=== PATIENT | female | born 1960 | race Caucasian/White ===

== ENCOUNTER 2023-09-13 04:01 | Inpatient (IN) | payer OTHER, SELFPAY ==
[2023-09-12 20:24] VITALS: BMI 40.2
[2023-09-12 20:31] VITALS: BP 126/91
[2023-09-12 21:41] LABS: % Basophils 0.3 % (0-2); % Eosinophils 0.6 % (0-6); % Immature Granulocytes 0.3 % (0-0.5); % Lymphocytes 10.3 % (20.5-51.1); % Monocytes 10.7 % (1.7-9.3); % Neutrophils 77.8 % (42.2-75.2); Absolute Lymphocytes 0.7 10^3/uL (1.2-3.4); Absolute Monocytes 0.7 10^3/uL (0.1-0.6); Absolute Neutrophils 4.9 10^3/uL (1.4-6.5); Hematocrit 37.4 % (37.0-47.0); Hemoglobin 12.9 g/dL (12.0-16.0); Mean Corp Hgb Conc. 34.5 g/dL (33.0-37.0); Mean Corpuscular Hgb 32.8 pg (27.0-31.0); Mean Corpuscular Volume 95.2 fL (81.0-99.0); Mean Platelet Volume 10.3 fL (7.4-10.4); Nucleated Red Blood Cells % 0 %; Platelet Count 71 10^3/uL (130-400); Red Blood Cell Count 3.93 10^6/uL (4.20-5.40); White Blood Cell Count 6.3 10^3/uL (4.8-10.8)
[2023-09-12 21:46] VITALS: BP 125/91
[2023-09-12 21:57] LABS: ALT (SGPT) 12 U/L (0-35); AST (SGOT) 24 U/L (14-36); Albumin 3.8 g/dl (3.5-5.0); Alkaline Phosphatase 76 U/L (38-126); Blood Urea Nitrogen 12 mg/dl (7-17); Calcium 8.5 mg/dl (8.4-10.2); Carbon Dioxide 20 mmol/L (22-30); Chloride 101 mmol/L (98-107); Glucose 116 mg/dl (70-99); Potassium 4.1 mmol/L (3.5-5.1); Sodium 127 mmol/L (135-145); Total Bilirubin 1.2 mg/dl (0.2-1.3); Total Protein 6.9 g/dl (6.3-8.2); eGFR > 60.00
[2023-09-12 22:00] VITALS: BP 80/57
[2023-09-12 22:06] VITALS: BP 116/81
[2023-09-12 22:33] LABS: COVID-19 Antigen Negative (Negative)
[2023-09-12 22:59] LABS: Lactic Acid 1.2 mmol/L (0.7-2.0)
[2023-09-12 23:00] VITALS: BP 109/75
[2023-09-12 23:00] LABS: Urine Albumin Negative (Neg - Trace); Urine Bilirubin Negative (Negative); Urine Character Clear (Clear); Urine Color Yellow; Urine Glucose Negative (Negative); Urine Ketone Trace (Negative); Urine Leukocyte Trace (Negative); Urine Nitrite Negative (Negative); Urine Occult Blood Negative (Negative); Urine Specific Gravity 1.015 (<1.030); Urine Urobilinogen 1+ (Neg - 1+)
[2023-09-12 23:09] LABS: Urine Bacteria Few (Negative); Urine Red Blood Cell 0-2 /HPF (0-2)
--- NOTE | 2023-09-12 23:43 | ED.GENMED ---
History of Present Illness
General
Chief Complaint: Fever
Source: patient
Exam Limitations: none
Time Seen by Provider: 09/12/23 21:05
Travel History
Have you had any contact with someone who has COVID-19?: No
Do you have any symptoms of coronavirus? Fever > 100 degrees, chills, cough, shortness of breath, sore throat, loss of taste or smell, muscle aches, or headache?: Yes
Symptoms:: fever
History of Present Illness
History of Present Illness:
63-year-old female with history of brain cancer receiving treatment through [facility] presents with a fever onset today. , who is very involved in her care, states that she intermittently gets these fevers and sometimes it
is related to her low platelets. She presented with chills today increased weakness and dizziness. She also notes a crushing type headache that is atypical. She has a history of craniotomy with surgery. She is left with left-sided deficit. She
denies chest pain or vomiting. She was given Tylenol at 3 PM today.
Past History
Past History
ED Past Medical History: Cancer (astrocytoma right parietal), HTN, Other (Iron deficiency anemia, seasonal allergies) and Other (DJD of the knees)
ED Past Surgical History: Cholecystectomy, , Gynecological (D&C), Orthopedic (Right lateral foot surgery 2009, for knee surgery) and Other (Sinus surgery)
Social History
Tobacco: Non-smoker
Alcohol: None
Personal:
Living: with family
Employment: Employed
Family History
Family History: Other (Noncontributory)
Phy Exam
Physical Exam
Physical Exam:
General: Well-appearing female no acute respiratory distress
HEENT: Normocephalic healed surgical incisions noted over the scalp pupils equal round and reactive to light
Heart: Regular rate and rhythm no murmurs
Lungs: Clear to auscultation bilaterally no wheezing
Extremities: No cyanosis or edema
Skin is warm no rash
Course
Orders/Labs/Results
Orders:
Orders
09/12/23 21:32
COVID-19 Antigen Urgent
Source: Nasal Swab
Complete Blood Count/With Diff Urgent
Comprehensive Metabolic Panel Urgent
Lactic Acid Q4H
Comment: CANCEL 2nd LACTIC ACID IF 1st LACTIC ACID IS LESS THAN 2
Blood Culture Q30M
KASSANDRA Source: Blood/Venous
Specimen Description:
Blood Culture Q30M
KASSANDRA Source: Blood/Venous
Specimen Description:
Influenza A+B Rapid Molecular Urgent
KASSANDRA Source: Nasal Swab
Specimen Description:
09/12/23 22:41
Urinalysis Reflex To Culture Urgent
Date Specimen was Collected: 09/12/23
Time Specimen was Collected: 22:40
Urine Microscopic Reflex Cult Urgent
09/13/23 00:00
CT Head W/o Iv Contrast Urgent
Reason For Exam: crushing headache, fever
09/13/23 00:13
0.9% Sodium Chloride 1000 ml [Nss] 1,000 ml IV BOLUS
09/13/23 00:34
Acetaminophen [Tylenol] 650 mg PO NOW STA
Levetiracetam [Keppra] 500 mg PO NOW STA
Abnormal Lab Results
09/12/23 09/12/23
21:32 22:41
RBC 3.93 L 10^6/uL
(4.20-5.40)
MCH 32.8 H pg
(27.0-31.0)
RDW 15.0 H %
(11.5-14.5)
Plt Count 71 L 10^3/uL
(130-400)
Absolute Lymphs (auto) 0.7 L 10^3/uL
(1.2-3.4)
Absolute Monos (auto) 0.7 H 10^3/uL
(0.1-0.6)
Neutrophils % 77.8 H %
(42.2-75.2)
Lymphocytes % 10.3 L %
(20.5-51.1)
Monocytes % 10.7 H %
(1.7-9.3)
Sodium 127 L mmol/L
(135-145)
Carbon Dioxide 20 L mmol/L
(22-30)
Creatinine 0.5 L mg/dL
(0.6-1.0)
Glucose 116 H mg/dl
(70-99)
Urine Ketones Trace A
(Negative)
Leukocyte Esterase Rfl Trace A
(Negative)
Urine Bacteria (Reflex) Few A
(Negative)
09/12/23 21:32
09/12/23 21:32
Vital Signs
Initial and Last Documented VS:
Initial Vital Signs
Temp Pulse Resp BP Pulse Ox
98.9 F 83 20 126/91 98
09/12/23 20:31 09/12/23 20:31 09/12/23 20:31 09/12/23 20:31 09/12/23 20:31
Last Documented Vital Signs
Temp Pulse Resp BP Pulse Ox
98 F 74 22 116/80 98
09/13/23 00:22 09/13/23 02:00 09/13/23 02:00 09/13/23 02:00 09/12/23 20:31
MDM/Problems Addressed
Differential Diagnosis Includes:
Fever. Question viral illness versus other infectious source versus inflammatory response. Patient's is a complex medical history. Will check blood work COVID and flu test. She notes a crushing type headache which is Bickle for her. CT of the
head is pending. No meningeal signs.
*Critical Care Note
Total Time (30-74mins, 75-104mins- exclusive of procedures): Not Applicable
Update Note
Update Note:
CT shows no obvious acute finding. COVID and flu are negative. Sodium noted to be 127. Urinalysis without infection. Patient and describe profound weakness unable to stand on her own took 4 people to get her in bed. Will keep in
hospital for further evaluation.
ED Attending Note
-
Portions of this chart may have been created with voice recognition software.� Occasional wrong word or��sound alike� substitutions may have occurred due to the inherent limitations of voice recognition software.
Discharge Plan
Departure
Patient Disposition: Admit
Date of Disposition: 09/13/23
Time of Disposition: 02:32
Admit to: Med/Surg
Presentation/result/management discussed w/ accepting MD/DO: Hospitalist
Discharge Problem:
Fever
Prescriptions:
No Action
Eliquis 5 MG tablet
5 mg PO DAILY
Rx Instructions:
10 mg po bid x 7 days, followed by 5 mg po bid. Please dispense sufficient quantity for one month.
levetiracetam [Keppra] 1,000 mg Tablet
1,000 mg PO DAILY
acetaminophen 325 MG tablet
650 mg PO Q6HPRN PRN (Reason: for mild pain or fever >100.4F)
nadolol 20 mg Tablet
20 mg PO DAILY
Referrals:
Berlin English MD [Family Provider] -
Interventions
Interventions:
*Risk Screen - Suicide Last Done: 09/12/23 20:31
*General Assessment Last Done: 09/12/23 20:31
*Neglect/Abuse Screening Last Done: 09/12/23 20:31
ED- Fall Risk Assessment Last Done: 09/12/23 21:20
*ED COVID-19 Vaccine History Last Done: 09/12/23 20:31
ED- Neurological Assessment Last Done: 09/12/23 21:20
ED-Skin Assessment Last Done: 09/12/23 21:20
[2023-09-13] VITALS (13 sets, daily range): BP systolic 92–127; BP diastolic 60–83; BMI 39.4
[2023-09-13] MEDS: NSS 1000 IV (00:15)
[2023-09-13] MEDS: TYLENOL 650 MG PO ×2 (00:42→16:14)
[2023-09-13] MEDS: KEPPRA 500 MG PO ×3 (00:42→21:30)
--- NOTE | 2023-09-13 03:30 | HPS.HSE ---
Family Physician
-
Family Physician: Berlin English
Chief Complaint
-
fever and weakness
History of Present Illness
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 Denied vomiting but associated JEAN.
Associated with dizziness on standing.
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 Today she is very weak and need 2- 3personn to assist to TF.
Denied Urinary Sx
Denied respiratory Sx
No N/V D
Medical History
Past Medical History
Past Medical History: Reports Other
Additional Past Medical History:
astrocytoma right parietal), HTN, Other (Iron deficiency anemia, seasonal allergies) and Other (DJD of the knees)
Past Surgical History: Reports Other
Additional Past Surgical History:
Cholecystectomy, , Gynecological (D&C), Orthopedic (Right lateral foot surgery 2009, for knee surgery) and Other (Sinus surgery)
Social History
Tobacco: Non-smoker
Drug: None
Personal:
Living: With Family
Family History
Family History: Not pertinent
Allergies / Home Medications
Allergies reflects when Allergies were last updated in [employer].
Home Medications with original date entered in [employer]
Allergy/Medication List:
Allergies
Allergy/AdvReac Type Severity Reaction Status Date / Time
hylan G-F 20 [From Synvisc] Allergy Swelling Verified 09/12/23 20:29
levofloxacin [From Levaquin] Allergy Unknown Verified 09/12/23 20:29
niacin Allergy Unknown Verified 09/12/23 20:29
Sulfa (Sulfonamide Allergy Rash Verified 09/12/23 20:29
Antibiotics)
Tetracyclines Allergy Rash Verified 09/12/23 20:29
dextrose solution in Fe Allergy phelbitis Uncoded 09/12/23 20:29
infusion
monostat Allergy Unknown Uncoded 09/12/23 20:29
seasonal Allergy itchy Uncoded 09/12/23 20:29
eyes,sneezing
Home Medications
apixaban 5 mg tablet (Eliquis) 5 mg PO DAILY Blood clot prevention/tx 04/17/22
acetaminophen 325 mg tablet 650 mg PO Q6HPRN PRN for mild pain or fever >100.4F 09/07/22
levetiracetam 1,000 mg tablet (Keppra) 1,000 mg PO DAILY Seizures 09/07/22
nadolol 20 mg tablet 20 mg PO DAILY Blood pressure 09/07/22
Review of Systems
-
EENT: Reports No Symptoms
Respiratory: Reports No Symptoms
Cardiac: Reports No Symptoms
Abdomen/GI: Reports No Symptoms
: Reports No Symptoms
Musculoskeletal: Reports No Symptoms
Skin: Reports No Symptoms
Endocrine: Reports No Symptoms
Hematologic/Lymphatic: Reports No Symptoms
Psych: Reports No Symptoms
Physical Exam
Vital Signs
Vital Signs
Temp Pulse Resp BP Pulse Ox
98 F 79 16 104/62 98
09/13/23 00:22 09/13/23 03:00 09/13/23 03:00 09/13/23 03:00 09/12/23 20:31
Physical Exam
General: Well Developed, Well Nourished, No Apparent Distress and Other (obese ); No Respiratory Distress
HEENT: NormoCephalic and Anicteric
Respiratory: Clear and Clear to Percussion; No Wheezes, Rales or Rhonchi
Cardiac: S1/S2 and Regular Rhythm
Breast: Deferred by me
GI: Soft, Non Tender, Non Distended and Normal Bowel Sounds
Genito-urinary: Deferred by me
Musculoskeletal: No Edema
Skin: Warm
Neuro: Awake and AO x 3
Psych: Calm
Laboratory Results
-
09/12/23 21:32
09/12/23 21:32
Laboratory Results
Lactic Acid Cancelled 09/13/23 01:42
Total Bilirubin 1.2 mg/dl (0.2-1.3) 09/12/23 21:32
AST 24 U/L (14-36) 09/12/23 21:32
ALT 12 U/L (0-35) 09/12/23 21:32
Alkaline Phosphatase 76 U/L (38-126) 09/12/23 21:32
Data Reviewed
-
CT Scan: Report Reviewed by me
Lab Data: Labs Reviewed by me
Old Records: Reviewed
Impression/Plan
-
Data
WCC 6.3
Hgb 12.9
Plt 71 - baseline 80s
Na 127
CO2 20
Nl Cr
Pending Ur Na, Ur Na, Sr Osm
HCT; no acute process
Last hospitalist admission: 09/07/22 - 09/12/22 DC Dx
Acute gout flare of the left knee
Ambulatory dysfunction due to severe left knee pain
ASSESSMENT & PLAN
Fever unclear etiology - acute viral infection vs bacterial
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
Immunocompromised host
- NEG COVID/FLu
- NEG UA
- BCx
- supportive care with IVF
- Empiric IV vancomycin and IV CFP
- ID consult
Acute hyponatremia with associated weakness - symptomatic ?
Postural dizziness
On going 1 L NS at ER
At risk for SIADH with known HX Anaplastic astrocytoma, Sz , Keppra
- Pending Ur Na, Ur Na, Sr Osm
- FR 1000 cc only
- Observe Na in AM
- Renal consult to eval for 3 % saline
Anaplastic astrocytoma s/p craniotomy and surgery
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
- f/u at [facility]
- on Tagrisso
- No longer on dexamethasone
Chronic thrombocytopenia
- at baseline
- f/u daily CBC
HX seizure disorder
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
Paroxysmal AF
- on Eliquis
Essential HTN
- on CONSUMER LOAN UNDERWRITER Nadolol 20 daily
Obesity with a body mass index of 40
DVT Px: on Eliquis
Code: Full
IP TLM
[2023-09-13 03:56] LABS: Osmolality Serum 272 mOsm/kg (275-300)
[2023-09-13 03:56] LABS: Osmolality Urine 766 mOsm/kg (300-900)
[2023-09-13 04:13] LABS: Urine Sodium 221 mmol/L (30-90)
[2023-09-13] MEDS: MAXIPIME 2000 MG IV ×2 (05:59→13:38)
[2023-09-13] MEDS: STERILE WATER FOR INJECTION 10 ML IV ×2 (05:59→13:39)
[2023-09-13] MEDS: VANCOCIN 540 MG IV (06:10)
[2023-09-13 06:20] LABS: ALT (SGPT) < 10 U/L (0-35); AST (SGOT) 19 U/L (14-36); Albumin 2.9 g/dl (3.5-5.0); Alkaline Phosphatase 58 U/L (38-126); Blood Urea Nitrogen 11 mg/dl (7-17); Calcium 8.2 mg/dl (8.4-10.2); Carbon Dioxide 23 mmol/L (22-30); Chloride 105 mmol/L (98-107); Estimated Creatinine Clearance > 125 ml/min; Glucose 107 mg/dl (70-99); Potassium 4.1 mmol/L (3.5-5.1); Sodium 133 mmol/L (135-145); Total Bilirubin 0.8 mg/dl (0.2-1.3); Total Protein 5.7 g/dl (6.3-8.2); eGFR > 60.00
[2023-09-13 06:49] LABS: TSH 1.54 uIU/ml (0.47-4.68)
--- NOTE | 2023-09-13 08:29 | PHA.VAN.IN ---
Assessment
- Assessment
Renal Function: Appears similar to baseline (0.4 09/08/22)
Maximum Temperature: 99 09/12/23 at 21:40
Minimum Temperature: 98 09/13/23 at 00:22
Concomitant Antimicrobials: Cefepime
AUC Dosing Plan
- Dosing Variables
Dosing Weight (kg): 120
Dosing CrCl (ml/min): 100
Vd coefficient (L/kg): 0.6
- Empiric Dosing
Initial / Loading Dose: Vancomycin 2000mg IV x 1 given 09/13/23 at 05:05
Maintenance Regimen: Vancomycin 1500mg IV Q12hr start at 18:00 today
Estimated AUC (mcg*h/mL): 508
Estimated Peak (mcg*h/mL): 32
Estimated Trough (mcg/ml): 13
Estimated Half Life (H): 8
- Monitoring
No levels ordered at this time: Will order levels according to vancomycin dosing protocol
Pharmacokinetics Vancomycin I
- -
Patient Age: 63
Patient Sex: Female
Vancomycin Day #: 1
Indication: Other
Requesting Provider: Dr. Monae Davis
Pertinent Antimicrobial Allergies:
Sulfa, Tetracycline-Rash, Levofloxacin-eye condition
Height / Weight:
Height 5 ft 8 in
Actual Weight 120 kg
IBW in k.9
Adjusted BW in k.3
Pertinent Past Medical History: Anaplastic astrocytoma s/p tumor resection on Tagrisso, BMI-40
- Vital Signs / Lab Results
Temp Pulse Resp BP Pulse Ox
98.2 F 75 15 111/78 98
09/13/23 06:05 09/13/23 07:30 09/13/23 06:15 09/13/23 06:00 09/12/23 20:31
Lab Results - Hematology
09/12/23
21:32
WBC 6.3
Lab Results - Chemistry
09/12/23 09/13/23
21:32 05:58
BUN 12 11
Creatinine 0.5 L 0.4 L
Estimated Creat Clear > 125
Albumin 3.8 2.9 L
09/12/23 09/13/23
21:32 01:42
Lactic Acid 1.2 Cancelled
Lab Results - Urine
09/12/23
22:41
Urine Nitrite (Reflex) Negative
Leukocyte Esterase Rfl Trace A
Urine WBC (Reflex) 3-5
Ur Squamous Epith Cells 6-10
Urine Bacteria (Reflex) Few A
Microbiology Results
09/12/23 21:32 Influenza Types A & B (GOLDEN) - Final
Nasal Swab Negative for Influenza A & B, NAAT
Negative results must be combined with clinical observations
and patient history.
Nucleic Acid Amplification test (NAAT)performed on the
[employer] NOW platform.
[2023-09-13] MEDS: CORGARD 20 MG PO (10:03)
[2023-09-13] MEDS: ELIQUIS 5 MG PO (10:03)
--- NOTE | 2023-09-13 10:18 | W.PN.HOSP.TC ---
Today's Communication/Plan
-
On IV antibiotics. Follow-up cultures.
Assessment / Plan
Assessment / Plan
Physical exam:
General: Well Developed, Well Nourished and No Apparent Distress
HEENT: Normocephalic, Atraumatic and Moist Mucous Membranes
Respiratory: Clear to Auscultation; Negative Wheezes, Rales or Rhonchi
Cardiac: Regular Rhythm and S1/S2
GI: Soft, Nontender and Nondistended. Mild nonblanchable rash.
Musculoskeletal: No Clubbing, No Cyanosis and No Edema
Neuro: Awake, Alert and Oriented, generalized weakness and residual left-sided weakness.
Psych: Calm
A/P:
Fever unclear etiology, infectious versus tumor fever versus other
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
Immunocompromised host
-CT of the head no new abnormalities
-COVID-19 and influenza negative
-Urinalysis negative
-Blood cultures pending but no growth so far
-I did not see a chest x-ray upon admission so I am ordering a chest x-ray for infectious workup
- supportive care with IVF
- Empiric IV vancomycin and IV cefepime upon admission. ID consulted--> ID discontinued such antibiotics and was going to observe but given recurrence fever started her on IV cefazolin.
-Follow-up cultures
-Obtain x-ray of the right hip.
-Will add tramadol as needed (she has taken this at home with success)
Hyponatremia, likely SIADH
-Sodium 127--> 133 today
-Nephrology consulted
-Urine sodium 221, urine osmolarity 776
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
- f/u at [facility]
-Patient s/p craniotomy, chemoradiation with recurrent x 2, currently on Avastin and osimertinib -->Tagrisso currently on hold until cultures back. I put a call to her outpatient oncology, Dr Carrero [phone]. Dr Gilliland oncology fellow got back
to me and ok holding medication for now and he'll pass on information to Alise.
-� No longer on� dexamethasone
Chronic thrombocytopenia
- at baseline
- f/u daily CBC
HX seizure disorder
- on STEAM CLEANER levetiracetam 500 mg bid here.
Paroxysmal AF
- on Eliquis
-on nadolol
Essential HTN
- on STEAM CLEANER Nadolol 20 daily
Obesity with a body mass index of 40
DVT Px: on Eliquis
Code: Full
Total time spent on today's encounter was 52 minutes which included time spent in counseling the patient/family regarding diagnosis and treatment plan as listed above, goals of care, and symptom management. Case was discussed with nursing staff,
specialists, and care coordinators/case management. All labs and imaging personally reviewed by me. Remainder the time spent in detailed review of previous records, lab data, imaging, and other medical provider documentation.
Anticipated Discharge: > 48 hours
Subjective/Interval History
-
Date of Service: September 13, 2023
Patient still with generalized weakness. Patient complains of right hip pain. Denies any trauma to the hip but does relate chronic issues for which she has required steroid injection. She still having fevers. Denies cough, sore throat, headache,
nausea vomiting or diarrhea or abdominal pain. Denies dysuria.
Objective Data
-
Labs:
Laboratory Results
09/13/23
05:58
Sodium 133 L
Potassium 4.1
Chloride 105
Carbon Dioxide 23
BUN 11
Creatinine 0.4 L
Glucose 107 H
Calcium 8.2 L
Total Bilirubin 0.8
AST 19
ALT < 10
Alkaline Phosphatase 58
Vital Signs:
Vital Signs
Temp Pulse Resp BP Pulse Ox
98.2 F 75 15 111/78 98
09/13/23 06:05 09/13/23 07:30 09/13/23 06:15 09/13/23 06:00 09/12/23 20:31
I&O
09/12/23 09/13/23 09/14/23
06:59 06:59 06:59
Output Total 1050 / 1050
Balance -1050 / -1050
Review of Systems
-
All other systems: Reviewed and negative
[2023-09-13] MEDS: ULTRAM 50 MG PO (13:35)
--- NOTE | 2023-09-13 15:10 | PHANOTE ---
09/13/2023, [employer] rec [facility], spoke to spouse to obtain pt.'s med. history; per spouse, pt. cannot take any medications that can cross the Blood Brain Barrier due to her condition.
--- NOTE | 2023-09-13 15:11 | CON.ID ---
Addendum entered and electronically signed by Geovanna Menezes MD 09/13/23 16:27:
Febrile 101. Start empiric cefazolin IV (poor RN HEMODIALYSIS penetration).
Original Note:
Consultation
-
Date/Time Consultation Requested: 09/13/2023, 0448
Date/Time Consultation Performed: 09/13/2023, 1510
Requesting Provider: Dr. Dwight Davis
Performing Provider: Dr. Geovanna Menezes
Reason for Consultation: Fever
Chief Complaint / Past History
Chief Complaint
Weakness
History of Present Illness
63 year female with pAfib, gout, brain ca s/p craniotomy, chemo/XRT with recurrence x 2, last tumor resection 2022, currently on osimertinib and Avastin. Yesterday felt cold the whole day. Temps in 99's. Experienced increasing weakness, unable to
get up from toilet. She therefore came to ED today. Has frontal JEAN. No sinus congestion/sore throat. No cough/sob. No N/V/D. + poor appetite. No myalgias. No urinary sxs. She recently passed swallow study. No ill-contacts. She stays home most of
the time.
Past History
Additional Past Medical History:
Anaplastic astrocytoma of brain s/p craniotomy, chemo/XRT with recurrence X 2 , currently on osimertinib and Avastin
Residual left side weakness
Seizure disorder
pAfib
HTN
Gout (knee)
Class III obesity BMI 40
Chronic thrombocytopenia
Venous insufficiency
Osteoarthritis
Right TKA
Foot surgery
sinus surgery
Allergy History:
hylan G-F 20 [From Synvisc] Allergy (Verified 09/12/23 20:29)
Swelling
levofloxacin [From Levaquin] Allergy (Verified 09/12/23 20:29)
Unknown
niacin Allergy (Verified 09/12/23 20:29)
Unknown
Sulfa (Sulfonamide Antibiotics) Allergy (Verified 09/12/23 20:29)
Rash
Tetracyclines Allergy (Verified 09/12/23 20:29)
Rash
dextrose solution in Fe infusion Allergy (Uncoded 09/12/23 20:29)
phelbitis
monostat Allergy (Uncoded 09/12/23 20:29)
Unknown
seasonal Allergy (Uncoded 09/12/23 20:29)
itchy eyes,sneezing
Medications Reviewed: Yes
Current Antibiotics:
Vanco
cefepime
Social History
Tobacco: Former Smoker
Alcohol: None
Drug: None
Personal:
Living: With Family ()
Family History
Family History: Not Pertinent
Review of Systems
Review of Systems
General: Chills and Change in Appetite
HEENT: Negative Sinus Problems or Pharyngitis
Cardiovascular: Negative Chest Pain, Dyspnea or Edema
Respiratory: Negative Dyspnea or Cough
Gasteroenterology: Negative Nausea or Vomiting
Genital / Urological: Negative Dysuria or Flank Pain
Endocrine: Weakness
Musculoskeletal: Negative Arthralgias
Neurological: Dizziness
All systems: All other systems were reviewed and were negative
Vital Signs
Temp Pulse Resp BP Pulse Ox
98.2 F 81 20 109/76 98
09/13/23 06:05 09/13/23 13:45 09/13/23 13:45 09/13/23 12:36 09/12/23 20:31
Physical Exam
Physical Exam
Constitutional: No Acute Distress and Comfortable
Head: Other (No frontal or maxillary sinus tenderness)
Eyes: No Conjunctival Hemorrhage and Sclera Anicteric
Pharynx: Benign
Oral: Negative Ulcers
Cardiovascular: Regular Rate and S1/S2
Pulmonary: Negative Clear
Gastrointestinal: Soft, Non Tender, Non Distended and Normal Bowel Sounds
Genito-Urinary: Negative CVA Tenderness
Musculoskeletal: Negative Joint Swelling or Joint Effusion
Skin: Rash (Red rash over previous tape sites, + nonblanchable pink erythema right breast to abdomen)
Neurological: AO x 3
Lab / Diagnostic Study Results
09/12/23 21:32
09/13/23 05:58
Abs Immat Gran (auto) 0.0 10^3/uL (0-0.05) 09/12/23 21:32
Absolute Neuts (auto) 4.9 10^3/uL (1.4-6.5) 09/12/23 21:32
Absolute Lymphs (auto) 0.7 10^3/uL (1.2-3.4) L 09/12/23 21:32
Absolute Monos (auto) 0.7 10^3/uL (0.1-0.6) H 09/12/23 21:32
Absolute Basos (auto) 0.0 10^3/uL (0-0.2) 09/12/23 21:32
Immature Gran % 0.3 % (0-0.5) 09/12/23 21:32
Neutrophils % 77.8 % (42.2-75.2) H 09/12/23 21:32
Lymphocytes % 10.3 % (20.5-51.1) L 09/12/23 21:32
Monocytes % 10.7 % (1.7-9.3) H 09/12/23 21:32
Eosinophils % 0.6 % (0-6) 09/12/23 21:32
Basophils % 0.3 % (0-2) 09/12/23 21:32
Lactic Acid Cancelled 09/13/23 01:42
Ur Squamous Epith Cells 6-10 /LPF (Few) 09/12/23 22:41
Microbiology Results
Micro:
09/12/23 21:32 Blood Culture - Pending
Blood/Venous
09/12/23 21:32 Influenza Types A & B (GOLDEN) - Final
Nasal Swab Negative for Influenza A & B, NAAT
Negative results must be combined with clinical observations
and patient history.
Nucleic Acid Amplification test (NAAT)performed on the
[employer] platform.
09/12/23 21:32 Blood Culture - Pending
Blood/Venous
09/13/[address]: No acute intracranial abnormality noted. Postsurgical changes as described above. Limited evaluation for recurrent disease without IV contrast. MRI examination study of choice. New prominence of the lateral ventricles. Symmetric.
NPH versus atrophy.
09/13/23 Left hip XRAY: Mild degenerative changes of the left hip without evidence for acute fracture or dislocation. Diffuse demineralization. Mild degenerative changes of the right hip, pubis symphysis, bilateral sacroiliac joints and partially
visualized lower lumbar spine.
Assessment / Plan
# Weakness and chills.
- Afebrile, normal wbc here
- CXR neg
- UA neg
- bcx's pending
- DC Vanco/cefepime and observe.
-Follow temps and wbc.
# Brain ca with recurrence, currently on Avastin and osimertinib.
-Per patient, to avoid drugs that crosse blood-brain barrier to prevent metastasis, per her Oncologist.
--- NOTE | 2023-09-13 16:29 | PTCARENOTE ---
Patient arrived to unit and pulled over. Cancer drug Tagrisso currently on hold, patient brought in own. Sent to pharmacy. Temp 101.3 on arrival, tylenol administered. Call callahan within reach. Oriented to room.
--- NOTE | 2023-09-13 16:44 | W.CON.NEPH ---
Consultation
-
Date/Time Consultation Requested: 09/13/23 0448
Date/Time Consultation Performed: 09/13/23 1600
Requesting Provider: Dwight Tristan
Performing Provider: Hina Reid
Reason for Consultation: Hyponatremia
Medical History
-
Chief Complaint: fever, dizziness
History of Present Illness:
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 She reports dizziness but no
falls. Her oral intake of fluids is ok but food has decreased. Denied vomiting but associated JEAN. She require more assistance yesterday hence presented to ER. Febrile currently at 101. NO chest pain, cough or sob. No dysuria. Sodium on admit was at
127 and improved to 133 with IVF in ER. NO h/o hyponatremia on old labs.
Past Medical History
astrocytoma right parietal, HTN,long QT syndrome, Iron deficiency anemia, seasonal allergies,DJD of the knees, Gout, obesity, h/o SZ, P afb
Past Surgical History: Other (Cholecystectomy, , Gynecological (D&C), Orthopedic (Right lateral foot surgery 2009, for knee surgery) and Other (Sinus surgery))
Social History
Tobacco: Non-Smoker
Alcohol: None
Drug: None
Personal:
Living: With Family
Family History
Family History: Not Pertinent
Allergies / Home Medications
Allergy/AdvReac Type Severity Reaction Status Date / Time
hylan G-F 20 [From Synvisc] Allergy Swelling Verified 09/12/23 20:29
levofloxacin [From Levaquin] Allergy Unknown Verified 09/12/23 20:29
niacin Allergy Unknown Verified 09/12/23 20:29
Sulfa (Sulfonamide Allergy Rash Verified 09/12/23 20:29
Antibiotics)
Tetracyclines Allergy Rash Verified 09/12/23 20:29
dextrose solution in Fe Allergy phelbitis Uncoded 09/12/23 20:29
infusion
monostat Allergy Unknown Uncoded 09/12/23 20:29
seasonal Allergy itchy Uncoded 09/12/23 20:29
eyes,sneezing
Medication Instructions Recorded Confirmed Type
acetaminophen 325 mg tablet 650 mg PO Q6HPRN PRN mild 09/07/22 09/13/23 History
pain/fever
nadolol 20 mg tablet 20 mg PO DAILY Blood pressure 09/07/22 09/13/23 History
Awilda 1 tab PO DAILY 09/13/23 09/13/23 History
apixaban 2.5 mg tablet (Eliquis) 2.5 mg PO BID 09/13/23 09/13/23 History
baclofen 5 mg tablet 5 mg PO Q8HPRN PRN muscle spasms 09/13/23 09/13/23 History
clobetasol 0.05 % topical ointment 1 applic topical BID PRN apply to 09/13/23 09/13/23 History
head
hydrocortisone 2.5 % topical cream 1 applic topical BID PRN apply to 09/13/23 09/13/23 History
B/L abdomen/B/L knees
levetiracetam 500 mg tablet 500 mg PO Q12H 09/13/23 09/13/23 History
lidocaine 5 % topical patch 1 patch topical BIDPRN PRN apply 09/13/23 09/13/23 History
to left hip/left shoulder
osimertinib 80 mg tablet (Tagrisso) 80 mg PO DAILY@199909/13/23 09/13/23 History
tramadol 50 mg tablet 50 mg PO Q6H PRN severe pain 09/13/23 09/13/23 History
Review of Systems
-
All complete 12 point ROS inquired and found negative other than stated in HPI
Physical Exam
Vital Signs
Vital Signs
Temp Pulse Resp BP Pulse Ox
101 F H 82 16 122/83 96
09/13/23 16:12 09/13/23 16:12 09/13/23 16:12 09/13/23 16:12 09/13/23 16:12
Lab Results
WBC 6.3 10^3/uL (4.8-10.8) 09/12/23 21:32
RBC 3.93 10^6/uL (4.20-5.40) L 09/12/23 21:32
Hgb 12.9 g/dL (12.0-16.0) 09/12/23 21:32
Hct 37.4 % (37.0-47.0) 09/12/23 21:32
Plt Count 71 10^3/uL (130-400) L 09/12/23 21:32
Sodium 133 mmol/L (135-145) L 09/13/23 05:58
Potassium 4.1 mmol/L (3.5-5.1) 09/13/23 05:58
Chloride 105 mmol/L (98-107) 09/13/23 05:58
Carbon Dioxide 23 mmol/L (22-30) 09/13/23 05:58
BUN 11 mg/dl (7-17) 09/13/23 05:58
Creatinine 0.4 mg/dL (0.6-1.0) L 09/13/23 05:58
eGFR > 60.00 09/13/23 05:58
Glucose 107 mg/dl (70-99) H 09/13/23 05:58
Calcium 8.2 mg/dl (8.4-10.2) L 09/13/23 05:58
Albumin 2.9 g/dl (3.5-5.0) L 09/13/23 05:58
CT head:
IMPRESSION:
No acute intracranial abnormality noted..
Postsurgical changes as described above. Limited evaluation for recurrent disease without IV contrast. MRI examination study of choice.
New prominence of the lateral ventricles. Symmetric. NPH versus atrophy.
A preliminary report was provided by [facility].
Electronically signed by Nadeen Garduno DO 09/13/2023 1:57 PM
Physical Exam
General: Awake, Alert and Oriented
HEENT: EOMI and Anicteric
Respiratory: Clear, Normal Excursion and Nonlabored Respirations
Cardiac: S1/S2 and Regular Rate/Rhythm
Abdomen: Soft, Nontender and Nondistended
Musculoskeletal: No Cyanosis and No Edema
Skin: No Rash
Neuro: Nonfocal/Grossly Intact (residual hemiparesis left side)
Assessment/Plan
-
IMP:
Fever unclear etiology
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
Immunocompromised host
hyponatremia
Anaplastic astrocytoma s/p craniotomy and surgery- f/u at [facility] on Tagrisso
Chronic thrombocytopenia
HX seizure disorder
Paroxysmal AF
Essential HTN
Obesity with a body mass index of 40
h/o gout
Plan:
A/w fever gen weakness and dizziness
Hyponatremia-new onset was normal before
U osmo high 766 possible hypovolemic, but U na high 221-need to repeat
sodium better post IVF
BP stable on BB
cont FR 48 ounces/day
normal TSH
add salt tab and encourage solute intake
abx per ID
d/w pt
Data Reviewed
-
Radiology: Report Reviewed by me
Labs: Labs Reviewed by me and Discussed with Patient
Old Records: Reviewed
[2023-09-13] MEDS: SODIUM CHLORIDE 0.5 GRAM PO (21:30)
[2023-09-13] MEDS: ANCEF 10 IV (21:31)
[2023-09-14 03:06] VITALS: BP 131/82
[2023-09-14] MEDS: ANCEF 10 IV (05:42)
[2023-09-14 06:00] VITALS: BMI 38.8
[2023-09-14 07:08] LABS: Urine Sodium 177 mmol/L (30-90)
[2023-09-14 07:25] VITALS: BP 134/86
[2023-09-14 08:25] LABS: Osmolality Urine 633 mOsm/kg (300-900)
[2023-09-14 08:53] LABS: % Basophils 0.3 % (0-2); % Eosinophils 2.2 % (0-6); % Immature Granulocytes 0.3 % (0-0.5); % Lymphocytes 16.7 % (20.5-51.1); % Monocytes 13.6 % (1.7-9.3); % Neutrophils 66.9 % (42.2-75.2); Absolute Eosinophils 0.1 10^3/uL (0-0.7); Absolute Lymphocytes 0.5 10^3/uL (1.2-3.4); Absolute Monocytes 0.4 10^3/uL (0.1-0.6); Absolute Neutrophils 2.2 10^3/uL (1.4-6.5); Hematocrit 37.1 % (37.0-47.0); Hemoglobin 12.2 g/dL (12.0-16.0); Mean Corp Hgb Conc. 32.9 g/dL (33.0-37.0); Mean Corpuscular Hgb 32.6 pg (27.0-31.0); Mean Corpuscular Volume 99.2 fL (81.0-99.0); Mean Platelet Volume 11.3 fL (7.4-10.4); Nucleated Red Blood Cells % 0 %; Platelet Count 55 10^3/uL (130-400); Red Blood Cell Count 3.74 10^6/uL (4.20-5.40); Red Cell Dist. Width 15.4 % (11.5-14.5); White Blood Cell Count 3.2 10^3/uL (4.8-10.8)
[2023-09-14 08:55] LABS: ALT (SGPT) < 10 U/L (0-35); AST (SGOT) 19 U/L (14-36); Albumin 3.1 g/dl (3.5-5.0); Alkaline Phosphatase 62 U/L (38-126); Blood Urea Nitrogen 11 mg/dl (7-17); Calcium 7.9 mg/dl (8.4-10.2); Carbon Dioxide 24 mmol/L (22-30); Chloride 102 mmol/L (98-107); Estimated Creatinine Clearance 122 ml/min; Glucose 87 mg/dl (70-99); Potassium 3.6 mmol/L (3.5-5.1); Sodium 129 mmol/L (135-145); Total Bilirubin 0.8 mg/dl (0.2-1.3); Total Protein 5.9 g/dl (6.3-8.2); eGFR > 60.00
--- NOTE | 2023-09-14 09:15 | W.PN.HOSP.TC ---
Addendum entered and electronically signed by Jabier Pike MD 09/14/23 10:37:
Patient and spouse are very few further IV cefazolin events that it crosses the blood-brain barrier(he looked it up online) I assured him I would discontinue it and follow his wishes and will make infectious disease service aware. She seems to be
developing leukopenia and thrombocytopenia and hopefully will remain fever free going forward
Original Note:
Today's Communication/Plan
-
Continue present course of cefazolin as per ID
Monitor thrombocytopenia monitor leukopenia
Send stool for culture and C. difficile
Monitor hyponatremia nephrology following
Assessment / Plan
Assessment / Plan
Physical exam:
General: Well Developed, Well Nourished and No Apparent Distress
HEENT: Normocephalic, Atraumatic and Moist Mucous Membranes
Respiratory: Clear to Auscultation; Negative Wheezes, Rales or Rhonchi
Cardiac: Regular Rhythm and S1/S2
GI: Soft, Nontender and Nondistended. Mild nonblanchable rash.
Musculoskeletal: No Clubbing, No Cyanosis and No Edema
Neuro: Awake, Alert and Oriented, generalized weakness and residual left-sided weakness.
Psych: Calm
A/P:
Fever unclear etiology, infectious versus tumor fever versus other
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
Immunocompromised host
-CT of the head no new abnormalities
-COVID-19 and influenza negative
-Urinalysis negative
-Blood cultures pending but no growth so far
-With onset of diarrhea we will send stool for culture and C. difficile
-Chest x-ray unremarkable
-Hip pain hip x-ray unremarkable
- supportive care with IVF
- Empiric IV vancomycin and IV cefepime upon admission. ID consulted--> ID discontinued such antibiotics and was going to observe but given recurrence fever started her on IV cefazolin.(Does not cross the blood-brain)
-Follow-up cultures
-Will add tramadol as needed (she has taken this at home with success)
Hyponatremia, likely SIADH
-Sodium 127--> 133 today
-Nephrology consulted
-Urine sodium 221>> 177, urine osmolarity 776
-Fluid restriction
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
- f/u at [facility]
-Patient s/p craniotomy, chemoradiation with recurrent x 2, currently on Avastin and osimertinib -->Tagrisso currently on hold until cultures back. I put a call to her outpatient oncology, Dr Carrero [phone]. Dr Gilliland oncology fellow got back
to me and ok holding medication for now and he'll pass on information to Alise.
-� No longer on� dexamethasone
Chronic thrombocytopenia
- at baseline?
- f/u daily CBC
HX seizure disorder
- on [employer] levetiracetam 500 mg bid here.
Paroxysmal AF
- on Eliquis
-on nadolol
Essential HTN
- on [employer] Nadolol 20 daily
Obesity with a body mass index of 40
DVT Px: on Eliquis
Code: Full
Total time spent on today's encounter was 52 minutes which included time spent in counseling the patient/family regarding diagnosis and treatment plan as listed above, goals of care, and symptom management. Case was discussed with nursing staff,
specialists, and care coordinators/case management. All labs and imaging personally reviewed by me. Remainder the time spent in detailed review of previous records, lab data, imaging, and other medical provider documentation.
Anticipated Discharge: 24 - 48 hours
Subjective/Interval History
-
Date of Service: September 14, 2023
Still feels somewhat weak and lightheaded when sitting up had copious amounts of loose diarrhea
Objective Data
-
Labs:
Laboratory Results
09/14/23 09/14/23
06:31 07:41
WBC Cancelled 3.2 L
Hgb Cancelled 12.2
Hct Cancelled 37.1
Plt Count Cancelled 55 L D
Sodium Cancelled 129 L
Potassium Cancelled 3.6
Chloride Cancelled 102
Carbon Dioxide Cancelled 24
BUN Cancelled 11
Creatinine Cancelled 0.5 L
Glucose Cancelled 87
Calcium Cancelled 7.9 L
Total Bilirubin Cancelled 0.8
AST Cancelled 19
ALT Cancelled < 10
Alkaline Phosphatase Cancelled 62
Vital Signs:
Vital Signs
Temp Pulse Resp BP Pulse Ox
98.5 F 77 20 134/86 95
09/14/23 07:25 09/14/23 07:25 09/14/23 07:25 09/14/23 07:25 09/14/23 07:25
I&O
09/13/23 09/14/23 09/15/23
06:59 06:59 06:59
Intake Total 240 / 240
Output Total 1050 / 1050 400 / 400
Balance -1050 / -1050 -160 / -160
Review of Systems
-
History Source: Patient
All other systems: Reviewed and negative
Constitutional: Reports Fever, Weight Loss, No Appetite and Fatigue
Respiratory: Reports No Symptoms
Cardiac: Reports No Symptoms
Abdomen/GI: Reports Diarrhea
Physical Exam
-
General: Appears Chronically Ill
HEENT: Normocephalic
Respiratory: Clear to Auscultation
Cardiac: Regular Rhythm
GI: Soft, Nontender and Nondistended
Neuro: Awake, Alert and Oriented
Psych: Calm
Data Reviewed
-
Total Time Spent with Patient (in minutes): 56
Diagnostic Radiology: Report Reviewed by me (Chest x-ray is unremarkable hip x-ray unremarkable)
Labs: Labs Reviewed by me (Thrombocytopenia trending down, leukopenia 3.2 hemoglobin 12.2/sodium 129 from 133)
[2023-09-14] MEDS: IMODIUM 2 MG PO ×2 (10:11→13:54)
[2023-09-14] MEDS: SODIUM CHLORIDE 0.5 GRAM PO ×2 (10:11→22:18)
[2023-09-14] MEDS: ELIQUIS 5 MG PO (10:11)
[2023-09-14] MEDS: DESENEX/MITRAZOL/ZEASORB 1 APPLIC TOPICAL ×2 (10:12→22:20)
[2023-09-14] MEDS: CORGARD 20 MG PO (10:12)
[2023-09-14] MEDS: KEPPRA 500 MG PO ×2 (10:12→22:19)
[2023-09-14 11:20] VITALS: BP 151/91
--- NOTE | 2023-09-14 11:20 | W.PN.ID1 ---
Date of Service
Date of Service: September 14, 2023
Today's Communication
Observe off abx.
Assessment / Plan
# Fever last night
# Weakness and chills.
# Diarrhea
- CXR neg
- UA neg
- bcx's neg to date.
- C. diff pending, stool cx pending
- Pt refuses systemic abx's.
-Follow temps and wbc.
# Brain ca with recurrence, currently on Avastin and osimertinib.
-Per patient, to avoid drugs that crosses blood-brain barrier to prevent metastasis, per her Oncologist.
Chief Complaint
-: Fever
Subjective / Review of Systems
c/o profuse diarrhea since last night. Refused cefazolin.
Vital Signs / Physical Exam
Vital Signs
Vital Signs
Temp Pulse Resp BP Pulse Ox
98.5 F 77 20 134/86 95
09/14/23 07:25 09/14/23 07:25 09/14/23 07:25 09/14/23 07:25 09/14/23 10:08
Selected Entries
09/13/23
16:12
Temp 101 F H
Physical Exam
Constitutional: No Acute Distress and Comfortable
Pulmonary: Clear
Gastrointestinal: Soft, Non Tender and Non Distended
Neurological: AO x 3
Objective Data
Lab Data
Lab Results
09/14/23 07:41
09/14/23 07:41
Estimated Creat Clear 122 ml/min 09/14/23 07:41
Lactic Acid Cancelled 09/13/23 01:42
Total Bilirubin 0.8 mg/dl (0.2-1.3) 09/14/23 07:41
AST 19 U/L (14-36) 09/14/23 07:41
ALT < 10 U/L (0-35) 09/14/23 07:41
Alkaline Phosphatase 62 U/L (38-126) 09/14/23 07:41
Most recent labs reviewed.
Micro Results:
09/14/23 10:44 Salmonella/Shigella Culture - Pending
Feces/Stool Campylobacter Culture - Pending
Shiga Toxin Test - Pending
09/14/23 10:44 C. difficile GDH Antigen & Toxins - Pending
Feces/Stool
09/12/23 21:32 Blood Culture - Preliminary
Blood/Venous No Growth in 24 hours- Final report to follow
09/12/23 21:32 Blood Culture - Preliminary
Blood/Venous No Growth in 24 hours- Final report to follow
09/12/23 21:32 Influenza Types A & B ([facility]) - Final
Nasal Swab Negative for Influenza A & B, NAAT
Negative results must be combined with clinical observations
and patient history.
Nucleic Acid Amplification test (NAAT)performed on the
[employer] platform.
09/13/[address]: No acute intracranial abnormality noted. Postsurgical changes as described above. Limited evaluation for recurrent disease without IV contrast. MRI examination study of choice. New prominence of the lateral ventricles. Symmetric.
NPH versus atrophy.
09/13/23 Left hip XRAY: Mild degenerative changes of the left hip without evidence for acute fracture or dislocation. Diffuse demineralization. Mild degenerative changes of the right hip, pubis symphysis, bilateral sacroiliac joints and partially
visualized lower lumbar spine.
Care Review
Plan reviewed with: Physician (Dr. Pike)
[2023-09-14] MEDS: ULTRAM 50 MG PO (12:20)
[2023-09-14 13:04] VITALS: BMI 38.8
--- NOTE | 2023-09-14 14:01 | W.PN.NEPH.PH ---
Today's Communication / Plan
-
follow lytes on FR/Salt tabs
Assessment/Plan
-
IMP:
Fever unclear etiology
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
Immunocompromised host
hyponatremia
Anaplastic astrocytoma s/p craniotomy and surgery- f/u at [facility] on Tagrisso
Chronic thrombocytopenia
HX seizure disorder
Paroxysmal AF
Essential HTN
Obesity with a body mass index of 40
h/o gout
Plan:
A/w fever gen weakness and dizziness
sodium now at 129
Hyponatremia-new onset was normal before
U osmo high 766 possible hypovolemic, but U na high 221-need to repeat ~177 not consistent with hypovolemia
sodium better post IVF
BP stable on BB
continue FR 48 ounces/day
normal TSH
added salt tab and encourage solute intake
abx per ID
d/w pt
-
-
Date of Service: September 14, 2023
CC / HPI / ROS
-
Chief Complaint:
Hyponatremia
History of Present Illness:
hyponatremia at 129
hemodynamically stable
Review of Systems:
left sided hemiparesis
fevers
weight stable
Labs
-
Labs:
WBC 3.2 10^3/uL (4.8-10.8) L 09/14/23 07:41
RBC 3.74 10^6/uL (4.20-5.40) L 09/14/23 07:41
Hgb 12.2 g/dL (12.0-16.0) 09/14/23 07:41
Hct 37.1 % (37.0-47.0) 09/14/23 07:41
Plt Count 55 10^3/uL (130-400) L D 09/14/23 07:41
Sodium 129 mmol/L (135-145) L 09/14/23 07:41
Potassium 3.6 mmol/L (3.5-5.1) 09/14/23 07:41
Chloride 102 mmol/L (98-107) 09/14/23 07:41
Carbon Dioxide 24 mmol/L (22-30) 09/14/23 07:41
BUN 11 mg/dl (7-17) 09/14/23 07:41
Creatinine 0.5 mg/dL (0.6-1.0) L 09/14/23 07:41
eGFR > 60.00 09/14/23 07:41
Glucose 87 mg/dl (70-99) 09/14/23 07:41
Calcium 7.9 mg/dl (8.4-10.2) L 09/14/23 07:41
Albumin 3.1 g/dl (3.5-5.0) L 09/14/23 07:41
Physical Exam
-
Vital Signs:
Vital Signs
Temp Pulse Resp BP Pulse Ox
100.6 F H 83 18 151/91 100
09/14/23 11:20 09/14/23 11:20 09/14/23 11:20 09/14/23 11:20 09/14/23 11:20
Cardiovascular:: Regular rate and rhythm
Respiratory:: Bilateral: CTA
Lung Excursion:: Normal
Abdomen:: Nontender and Soft
Bowel Sounds:: Normal
Extremity Edema:: None: Bilateral:
Martin Catheter: No
[2023-09-14 15:10] VITALS: BP 141/90
[2023-09-14] MEDS: TYLENOL 650 MG PO ×2 (15:31→22:17)
--- NOTE | 2023-09-14 16:23 | PTCARENOTE ---
Pt AAO x3, WATTS; has very minimal movement/decreased sensation LUE; keeps arm splint in place. Needs much assistance with positioning. VSS. Telemetry:NSR. On room air- pulse ox 98%, no c/o SOB. Abd obese, soft shyann reg diet; 1440 ml fl restriction
maintained. Incont large amts loose brown BM x2; prn Imodium given. Incont urine. Temp 101.4 PO; prn Tylenol given; will assess effectiveness. Resting quietly at present; at bedside. Will continue to monitor.
--- NOTE | 2023-09-14 16:48 | PTCARENOTE ---
Repeat temp after prn Tylenol dose (for temp 101.4 PO)- 98.9 PO. Will continue to monitor.
--- NOTE | 2023-09-14 17:13 | CM ---
CM following re: d/c planning
Chart reviewed
CM met with patient & her spouse at bedside; IA completed
Per the patient's spouse they reside in a [facility] with [facility] and also has ramp access and they have 1st floor set up
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
Pt has no previous SNF hx, has had VN provided by [facility] for ST/PT/OT, & has a r/w, w/c, shower chair, bsc, & a standing pole for balance
Pt confirms prescription coverage and rx's are filled at [facility] in [place]
Pt PCP-Berlin English
Discharge needs at this time are uncertain
CM following and will assist patient with any needs at d/c as indicated
PLAN; CM following for needs
[2023-09-14 19:33] VITALS: BP 100/68
--- NOTE | 2023-09-14 22:00 | PTCARENOTE ---
Both pt and requesting that Purewick be reapplied; had been removed prior due to pt's diarrhea. Explained to the concern for Purewick in place while pt having diarrhea - concern for urinary tract contamination. voiced very
strongly that it is more important for pt's comfort and ability to rest and gain strength that she not have to get on bed richardson which is very painful for her. Pt and both expressed understanding of rationale for not placing Purewick, but
continued very strongly to request it. Purewick placed; will observe carefully for diarrhea.
[2023-09-14 23:46] VITALS: BP 142/77
[2023-09-15 03:20] VITALS: BP 111/73
[2023-09-15 06:00] VITALS: BMI 38.7
--- NOTE | 2023-09-15 06:27 | PTCARENOTE ---
No stools this shift.
[2023-09-15 07:25] VITALS: BP 131/91
[2023-09-15 08:01] LABS: Hematocrit 36.7 % (37.0-47.0); Hemoglobin 12.3 g/dL (12.0-16.0); Mean Corp Hgb Conc. 33.5 g/dL (33.0-37.0); Mean Corpuscular Volume 98.4 fL (81.0-99.0); Mean Platelet Volume 11.8 fL (7.4-10.4); Platelet Count 59 10^3/uL (130-400); Red Blood Cell Count 3.73 10^6/uL (4.20-5.40); White Blood Cell Count 3.2 10^3/uL (4.8-10.8)
[2023-09-15 08:21] LABS: Blood Urea Nitrogen 12 mg/dl (7-17); Calcium 8.4 mg/dl (8.4-10.2); Carbon Dioxide 24 mmol/L (22-30); Chloride 99 mmol/L (98-107); Estimated Creatinine Clearance 122 ml/min; Glucose 100 mg/dl (70-99); Potassium 3.7 mmol/L (3.5-5.1); Sodium 131 mmol/L (135-145); eGFR > 60.00
[2023-09-15] MEDS: DESENEX/MITRAZOL/ZEASORB 1 APPLIC TOPICAL (09:28)
[2023-09-15] MEDS: SODIUM CHLORIDE 0.5 GRAM PO ×2 (09:29→20:40)
[2023-09-15] MEDS: ELIQUIS 5 MG PO (09:29)
[2023-09-15] MEDS: CORGARD 20 MG PO (09:29)
[2023-09-15] MEDS: KEPPRA 500 MG PO ×2 (09:36→22:38)
--- NOTE | 2023-09-15 10:17 | W.PN.HOSP.TC ---
Today's Communication/Plan
-
Cont monitor BMP
fever
plts and wbcs
stool and blood C+S
Assessment / Plan
Assessment / Plan
Physical exam:
General: Well Developed, Well Nourished and No Apparent Distress
HEENT: Normocephalic, Atraumatic and Moist Mucous Membranes
Respiratory: Clear to Auscultation; Negative Wheezes, Rales or Rhonchi
Cardiac: Regular Rhythm and S1/S2
GI: Soft, Nontender and Nondistended. Mild nonblanchable rash.
Musculoskeletal: No Clubbing, No Cyanosis and No Edema
Neuro: Awake, Alert and Oriented, generalized weakness and residual left-sided weakness.
Psych: Calm
A/P:
Fever unclear etiology, infectious versus tumor fever versus other/ remains febrile off ABX xs 24hrs
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
Immunocompromised host
-CT of the head no new abnormalities
-COVID-19 and influenza negative
-Urinalysis negative
-Blood cultures pending but no growth so far
-With onset of diarrhea we will send stool for culture and C. difficile
-Chest x-ray unremarkable
-Hip pain hip x-ray unremarkable
- supportive care with IVF
- Empiric IV vancomycin and IV cefepime upon admission. ID consulted--> ID discontinued such antibiotics and was going to observe but given recurrence fever started her on IV cefazolin.(Does not cross the blood-brain)
-Follow-up cultures
-Will add tramadol as needed (she has taken this at home with success)
Hyponatremia, likely SIADH
-Sodium 127--> 131 today
-Nephrology consulted
-Urine sodium 221>> 177, urine osmolarity 776
-Fluid restriction she wants this liberalized
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
- f/u at [facility]
-Patient s/p craniotomy, chemoradiation with recurrent x 2, currently on Avastin and osimertinib -->Tagrisso currently on hold until cultures back. I put a call to her outpatient oncology, Dr Carrero [phone]. Dr Gilliland oncology fellow got back
to me and ok holding medication for now and he'll pass on information to Alise.
-� No longer on� dexamethasone
Chronic thrombocytopenia
- at baseline?
- f/u daily CBC
HX seizure disorder
- on [employer] levetiracetam 500 mg bid here.
Paroxysmal AF
- on Eliquis
-on nadolol
Essential HTN
- on [employer] Nadolol 20 daily
Obesity with a body mass index of 40
DVT Px: on Eliquis
Code: Full
Total time spent on today's encounter was 52 minutes which included time spent in counseling the patient/family regarding diagnosis and treatment plan as listed above, goals of care, and symptom management. Case was discussed with nursing staff,
specialists, and care coordinators/case management. All labs and imaging personally reviewed by me. Remainder the time spent in detailed review of previous records, lab data, imaging, and other medical provider documentation.
Anticipated Discharge: 24 - 48 hours
Subjective/Interval History
-
Date of Service: September 15, 2023
No issues overnight her diarrhea has stopped since yesterday no cramping pain no abdominal pain no nausea no respiratory issues
Objective Data
-
Labs:
Laboratory Results
09/15/23
07:20
WBC 3.2 L
Hgb 12.3
Hct 36.7 L
Plt Count 59 L
Sodium 131 L
Potassium 3.7
Chloride 99
Carbon Dioxide 24
BUN 12
Creatinine 0.5 L
Glucose 100 H
Calcium 8.4
Vital Signs:
Vital Signs
Temp Pulse Resp BP Pulse Ox
99.4 F 79 20 131/91 99
09/15/23 07:25 09/15/23 07:25 09/15/23 07:25 09/15/23 07:25 09/15/23 07:25
I&O
09/14/23 09/15/23 09/16/23
06:59 06:59 06:59
Intake Total 240 / 240 1560 / 1560
Output Total 400 / 400
Balance -160 / -160 1560 / 1560
Review of Systems
-
All other systems: Not reviewed unless documented
Abdomen/GI: Reports Other; Denies Diarrhea
Physical Exam
-
General: Well Developed
HEENT: Normocephalic
Respiratory: Clear to Auscultation
Cardiac: Regular Rhythm
GI: Soft, Nontender and Nondistended
Neuro: Alert, Oriented and AO x 3
Psych: Calm
Data Reviewed
-
Total Time Spent with Patient (in minutes): 45
Labs: Labs Reviewed by me (no change in wbc or plts )
[2023-09-15] MEDS: ULTRAM 50 MG PO (11:04)
[2023-09-15 11:30] VITALS: BP 146/91
--- NOTE | 2023-09-15 12:15 | W.PN.NEPH.PH ---
Today's Communication / Plan
-
sodium improving maintain FR ?60 oz and salt tablets
Assessment/Plan
-
IMP:
Fever unclear etiology
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
Immunocompromised host
hyponatremia
Anaplastic astrocytoma s/p craniotomy and surgery- f/u at [facility] on Tagrisso
Chronic thrombocytopenia
HX seizure disorder
Paroxysmal AF
Essential HTN
Obesity with a body mass index of 40
h/o gout
Plan:
A/w fever gen weakness and dizziness
sodium now at 131
Hyponatremia-new onset was normal before
U osmo high 766 possible hypovolemic, but U na high 221-need to repeat ~177 not consistent with hypovolemia
BP stable on BB
continue FR 48 ounces/day
normal TSH
added salt tabs and encourage solute intake
abx per ID
-
-
Date of Service: September 15, 2023
CC / HPI / ROS
-
Chief Complaint:
Hyponatremia
History of Present Illness:
hyponatremia at 131
hemodynamically stable
Review of Systems:
left sided hemiparesis
fevers
weight stable
Labs
-
Labs:
WBC 3.2 10^3/uL (4.8-10.8) L 09/15/23 07:20
RBC 3.73 10^6/uL (4.20-5.40) L 09/15/23 07:20
Hgb 12.3 g/dL (12.0-16.0) 09/15/23 07:20
Hct 36.7 % (37.0-47.0) L 09/15/23 07:20
Plt Count 59 10^3/uL (130-400) L 09/15/23 07:20
Sodium 131 mmol/L (135-145) L 09/15/23 07:20
Potassium 3.7 mmol/L (3.5-5.1) 09/15/23 07:20
Chloride 99 mmol/L (98-107) 09/15/23 07:20
Carbon Dioxide 24 mmol/L (22-30) 09/15/23 07:20
BUN 12 mg/dl (7-17) 09/15/23 07:20
Creatinine 0.5 mg/dL (0.6-1.0) L 09/15/23 07:20
eGFR > 60.00 09/15/23 07:20
Glucose 100 mg/dl (70-99) H 09/15/23 07:20
Calcium 8.4 mg/dl (8.4-10.2) 09/15/23 07:20
Albumin 3.1 g/dl (3.5-5.0) L 09/14/23 07:41
Physical Exam
-
Vital Signs:
Vital Signs
Temp Pulse Resp BP Pulse Ox
99.3 F 82 20 146/91 98
09/15/23 11:30 09/15/23 11:30 09/15/23 11:30 09/15/23 11:30 09/15/23 11:30
Cardiovascular:: Regular rate and rhythm
Respiratory:: Bilateral: CTA
Lung Excursion:: Normal
Abdomen:: Nontender and Soft
Bowel Sounds:: Normal
Extremity Edema:: None: Bilateral:
--- NOTE | 2023-09-15 14:45 | W.PN.ID1 ---
Date of Service
Date of Service: September 15, 2023
Today's Communication
Observe off abx.
Assessment / Plan
# Fever ongoing
# Weakness and chills.
# Diarrhea resolved
- Possible viral syndrome
-COVID neg, flu neg
- CXR neg
- UA neg
- bcx's neg to date.
- C. diff negative, stool cx pending
- Observing off abx. (Pt refused systemic abx0
-Follow temps
# Leukopenia
# Chronic thrombocytopenia
# Brain ca with recurrence, on Avastin and osimertinib.
-Per patient, to avoid drugs that crosses blood-brain barrier to prevent metastasis, per her Oncologist.
Chief Complaint
-: Fever
Subjective / Review of Systems
Diarrhea much improved. Feels tired.
Vital Signs / Physical Exam
Vital Signs
Vital Signs
Temp Pulse Resp BP Pulse Ox
99.3 F 82 20 146/91 98
09/15/23 11:30 09/15/23 11:30 09/15/23 11:30 09/15/23 11:30 09/15/23 11:30
Selected Entries
09/14/23
23:46
Temp 101 F H
Physical Exam
Constitutional: No Acute Distress and Comfortable
Eyes: Sclera Anicteric
Cardiovascular: Regular Rate
Pulmonary: Clear
Gastrointestinal: Soft, Non Tender and Non Distended
Extremities: Negative Edema
Objective Data
Lab Data
Lab Results
09/15/23 07:20
09/15/23 07:20
Estimated Creat Clear 122 ml/min 09/15/23 07:20
Lactic Acid Cancelled 09/13/23 01:42
Total Bilirubin 0.8 mg/dl (0.2-1.3) 09/14/23 07:41
AST 19 U/L (14-36) 09/14/23 07:41
ALT < 10 U/L (0-35) 09/14/23 07:41
Alkaline Phosphatase 62 U/L (38-126) 09/14/23 07:41
Most recent labs reviewed.
Micro Results:
09/14/23 10:44 Salmonella/Shigella Culture - Preliminary
Feces/Stool Culture in Progress
Campylobacter Culture - Preliminary
Culture in Progress
Shiga Toxin Test - Pending
09/12/23 21:32 Blood Culture - Preliminary
Blood/Venous No Growth in 48 hours- Final report to follow
09/12/23 21:32 Blood Culture - Preliminary
Blood/Venous No Growth in 48 hours- Final report to follow
09/14/23 10:44 C. difficile [facility] Antigen & Toxins - Final
Feces/Stool Negative for toxigenic C.difficile
09/12/23 21:32 Influenza Types A & B ([facility]) - Final
Nasal Swab Negative for Influenza A & B, NAAT
Negative results must be combined with clinical observations
and patient history.
Nucleic Acid Amplification test (NAAT)performed on the
[employer] platform.
09/13/[address]: No acute intracranial abnormality noted. Postsurgical changes as described above. Limited evaluation for recurrent disease without IV contrast. MRI examination study of choice. New prominence of the lateral ventricles. Symmetric.
NPH versus atrophy.
09/13/23 Left hip XRAY: Mild degenerative changes of the left hip without evidence for acute fracture or dislocation. Diffuse demineralization. Mild degenerative changes of the right hip, pubis symphysis, bilateral sacroiliac joints and partially
visualized lower lumbar spine.
[2023-09-15 15:30] VITALS: BP 128/87
[2023-09-15] MEDS: TYLENOL 650 MG PO ×2 (16:10→22:37)
[2023-09-15 19:00] VITALS: BP 132/86
[2023-09-15 23:00] VITALS: BP 113/75
[2023-09-15] MEDS: DESENEX/MITRAZOL/ZEASORB TOPICAL (23:00)
[2023-09-16 03:00] VITALS: BP 120/70
[2023-09-16] MEDS: DESENEX/MITRAZOL/ZEASORB 1 APPLIC TOPICAL ×3 (03:16→20:07)
[2023-09-16 06:00] VITALS: BMI 38.6
[2023-09-16 07:55] VITALS: BP 118/76
[2023-09-16 08:03] LABS: Hematocrit 35.7 % (37.0-47.0); Mean Corp Hgb Conc. 33.6 g/dL (33.0-37.0); Mean Corpuscular Hgb 33.1 pg (27.0-31.0); Mean Corpuscular Volume 98.3 fL (81.0-99.0); Mean Platelet Volume 11.8 fL (7.4-10.4); Platelet Count 48 10^3/uL (130-400); Red Blood Cell Count 3.63 10^6/uL (4.20-5.40); White Blood Cell Count 2.7 10^3/uL (4.8-10.8)
[2023-09-16 08:13] LABS: Blood Urea Nitrogen 13 mg/dl (7-17); Carbon Dioxide 24 mmol/L (22-30); Chloride 104 mmol/L (98-107); Estimated Creatinine Clearance 122 ml/min; Glucose 96 mg/dl (70-99); Potassium 3.7 mmol/L (3.5-5.1); Sodium 130 mmol/L (135-145); eGFR > 60.00
[2023-09-16] MEDS: CORGARD 20 MG PO (09:22)
[2023-09-16] MEDS: SODIUM CHLORIDE 0.5 GRAM PO ×2 (09:23→20:08)
[2023-09-16] MEDS: ELIQUIS 5 MG PO (09:23)
[2023-09-16] MEDS: KEPPRA 500 MG PO ×2 (09:25→22:28)
--- NOTE | 2023-09-16 09:47 | W.PN.HOSP.TC ---
Today's Communication/Plan
-
Remains febrile
Continue to monitor leukopenia and thrombocytopenia
Monitor febrile course
Monitor sodium
Continue salt tabs and fluid restriction
Increase activity
Assessment / Plan
Assessment / Plan
Physical exam:
General: Well Developed, Well Nourished and No Apparent Distress
HEENT: Normocephalic, Atraumatic and Moist Mucous Membranes
Respiratory: Clear to Auscultation; Negative Wheezes, Rales or Rhonchi
Cardiac: Regular Rhythm and S1/S2
GI: Soft, Nontender and Nondistended. Mild nonblanchable rash.
Musculoskeletal: No Clubbing, No Cyanosis and No Edema
Neuro: Awake, Alert and Oriented, generalized weakness and residual left-sided weakness.
Psych: Calm
A/P:
Febrile neutropenia
Fever unclear etiology, infectious(presumed viral) versus tumor fever versus other/ remains febrile off ABX xs 48hrs
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
Immunocompromised host
-CT of the head no new abnormalities
-COVID-19 and influenza negative
-Urinalysis negative
-Blood cultures pending but no growth so far
-With onset of diarrhea we will send stool for culture and C. difficile
-Chest x-ray unremarkable
-Hip pain hip x-ray unremarkable
- supportive care with IVF
- Empiric IV vancomycin and IV cefepime upon admission. ID consulted--> got single dose of cefazolin but then further refused by patient and family due to concerns over crossing blood brain barrier
-Follow-up cultures
-Will add tramadol as needed (she has taken this at home with success)
Hyponatremia, likely SIADH
-Sodium 127--> 131 today
-Nephrology consulted
-Urine sodium 221>> 177, urine osmolarity 776
-Fluid restriction she wants this liberalized
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
- f/u at [facility]
-Patient s/p craniotomy, chemoradiation with recurrent x 2, currently on Avastin and osimertinib -->Tagrisso currently on hold until cultures back. I put a call to her outpatient oncology, Dr Carrero [phone]. Dr Gilliland oncology fellow got back
to me and ok holding medication for now and he'll pass on information to Alise.
-� No longer on� dexamethasone
Chronic thrombocytopenia
- at baseline?
- f/u daily CBC
HX seizure disorder
- on LOCKET [employer]KER levetiracetam 500 mg bid here.
Paroxysmal AF
- on Eliquis
-on nadolol
Essential HTN
- on LOCKET MAKER Nadolol 20 daily
Obesity with a body mass index of 40
DVT Px: on Eliquis
Code: Full
Total time spent on today's encounter was 52 minutes which included time spent in counseling the patient/family regarding diagnosis and treatment plan as listed above, goals of care, and symptom management. Case was discussed with nursing staff,
specialists, and care coordinators/case management. All labs and imaging personally reviewed by me. Remainder the time spent in detailed review of previous records, lab data, imaging, and other medical provider documentation.
Anticipated Discharge: 24 - 48 hours
Subjective/Interval History
-
Date of Service: September 16, 2023
No new symptoms no further diarrhea no nausea vomiting no respiratory distress no abdominal pain.
Objective Data
-
Labs:
Laboratory Results
09/16/23
07:27
WBC 2.7 L
Hgb 12.0
Hct 35.7 L
Plt Count 48 L
Sodium 130 L
Potassium 3.7
Chloride 104
Carbon Dioxide 24
BUN 13
Creatinine 0.5 L
Glucose 96
Calcium 8.0 L
Vital Signs:
Vital Signs
Temp Pulse Resp BP Pulse Ox
99.0 F 70 24 118/76 98
09/16/23 07:55 09/16/23 07:55 09/16/23 07:55 09/16/23 07:55 09/16/23 07:55
I&O
09/15/23 09/16/23 09/17/23
06:59 06:59 06:59
Intake Total 1560 / 1560 660 / 660
Output Total 850 / 850
Balance 1560 / 1560 -190 / -190
Review of Systems
-
History Source: Patient
All other systems: Not reviewed unless documented
Physical Exam
-
General: Well Nourished
HEENT: Normocephalic
Respiratory: Clear to Auscultation
Cardiac: Regular Rhythm
GI: Soft, Nontender and Nondistended
Musculoskeletal: No Edema
Neuro: Awake, Alert, Oriented and AO x 3
Psych: Calm
Data Reviewed
-
Total Time Spent with Patient (in minutes): 567
Labs: Labs Reviewed by me (White count 2.7 down from 3.2 yesterday/sodium 130/creatinine 0.5/platelets 48,000)
[2023-09-16 11:55] VITALS: BP 129/79
[2023-09-16 12:20] VITALS: BP 127/79; PULSE 75; O2SAT 98
--- NOTE | 2023-09-16 12:37 | W.PN.ID1 ---
Date of Service
Date of Service: September 16, 2023
Today's Communication
Continue to observe off abx.
Assessment / Plan
# Fever trending down
# Diarrhea resolved
- Suspect viral syndrome
-COVID neg, flu neg
- CXR neg
- UA neg
- bcx's neg to date.
- C. diff negative, stool cx negative
- Observing off abx.
-Follow temps
# Leukopenia trending down, not neutropenic
# Chronic thrombocytopenia
# Brain ca with recurrence, on Avastin and osimertinib.
-Per patient, to avoid drugs that crosses blood-brain barrier to prevent metastasis, per her Oncologist.
Chief Complaint
-: Fever
Subjective / Review of Systems
Feeling stronger. Worked with PT.
No diarrhea.
Vital Signs / Physical Exam
Vital Signs
Vital Signs
Temp Pulse Resp BP Pulse Ox
99.0 F 70 24 118/76 98
09/16/23 07:55 09/16/23 07:55 09/16/23 07:55 09/16/23 07:55 09/16/23 11:43
Selected Entries
09/15/23
22:45
Temp 100.5 F H
Physical Exam
Constitutional: No Acute Distress
Cardiovascular: Regular Rate and S1/S2
Gastrointestinal: Soft, Non Tender and Non Distended
Extremities: Negative Edema
Neurological: AO x 3
Objective Data
Lab Data
Lab Results
09/16/23 07:27
09/16/23 07:27
Estimated Creat Clear 122 ml/min 09/16/23 07:27
Lactic Acid Cancelled 09/13/23 01:42
Total Bilirubin 0.8 mg/dl (0.2-1.3) 09/14/23 07:41
AST 19 U/L (14-36) 09/14/23 07:41
ALT < 10 U/L (0-35) 09/14/23 07:41
Alkaline Phosphatase 62 U/L (38-126) 09/14/23 07:41
Most recent labs reviewed.
Micro Results:
09/14/23 10:44 Salmonella/Shigella Culture - Final
Feces/Stool No Salmonella, Shigella, Aeromonas or Plesiomonas species
isolated.
Campylobacter Culture - Final
No Campylobacter species isolated.
Shiga Toxin Test - Pending
09/12/23 21:32 Blood Culture - Preliminary
Blood/Venous No Growth in 72 hours- Final report to follow
09/12/23 21:32 Blood Culture - Preliminary
Blood/Venous No Growth in 72 hours- Final report to follow
09/14/23 10:44 C. difficile [facility]DH Antigen & Toxins - Final
Feces/Stool Negative for toxigenic C.difficile
09/12/23 21:32 Influenza Types A & B ([facility]) - Final
Nasal Swab Negative for Influenza A & B, NAAT
Negative results must be combined with clinical observations
and patient history.
Nucleic Acid Amplification test (NAAT)performed on the
[employer] platform.
09/13/[address]: No acute intracranial abnormality noted. Postsurgical changes as described above. Limited evaluation for recurrent disease without IV contrast. MRI examination study of choice. New prominence of the lateral ventricles. Symmetric.
NPH versus atrophy.
09/13/23 Left hip XRAY: Mild degenerative changes of the left hip without evidence for acute fracture or dislocation. Diffuse demineralization. Mild degenerative changes of the right hip, pubis symphysis, bilateral sacroiliac joints and partially
visualized lower lumbar spine.
--- NOTE | 2023-09-16 13:28 | W.PN.NEPH.PH ---
Today's Communication / Plan
-
observe with FR and salt tab
Assessment/Plan
-
IMP:
Fever unclear etiology
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
Immunocompromised host
hyponatremia
Anaplastic astrocytoma s/p craniotomy and surgery- f/u [facility] Tagrisso
Chronic thrombocytopenia
HX seizure disorder
Paroxysmal AF
Essential HTN
Obesity with a body mass index of 40
h/o gout
Plan:
A/w fever gen weakness and dizziness
sodium stable 130 on salt tab and FR
Hyponatremia-new onset was normal before
U osmo high 766 possible hypovolemic, but U na high 221-need to repeat ~177 not consistent with hypovolemia
BP stable on BB
continue FR 48 ounces/day
normal TSH
encourage solute intake
off abx per ID
-
-
Date of Service: September 16, 2023
CC / HPI / ROS
-
Chief Complaint:
Hyponatremia
History of Present Illness:
hyponatremia at 130
hemodynamically stable
low grade fever
Review of Systems:
left sided hemiparesis
no n/v
no abd pain or dirrhea
weight stable
Labs
-
Labs:
WBC 2.7 10^3/uL (4.8-10.8) L 09/16/23 07:27
RBC 3.63 10^6/uL (4.20-5.40) L 09/16/23 07:27
Hgb 12.0 g/dL (12.0-16.0) 09/16/23 07:27
Hct 35.7 % (37.0-47.0) L 09/16/23 07:27
Plt Count 48 10^3/uL (130-400) L 09/16/23 07:27
Sodium 130 mmol/L (135-145) L 09/16/23 07:27
Potassium 3.7 mmol/L (3.5-5.1) 09/16/23 07:27
Chloride 104 mmol/L (98-107) 09/16/23 07:27
Carbon Dioxide 24 mmol/L (22-30) 09/16/23 07:27
BUN 13 mg/dl (7-17) 09/16/23 07:27
Creatinine 0.5 mg/dL (0.6-1.0) L 09/16/23 07:27
eGFR > 60.00 09/16/23 07:27
Glucose 96 mg/dl (70-99) 09/16/23 07:27
Calcium 8.0 mg/dl (8.4-10.2) L 09/16/23 07:27
Albumin 3.1 g/dl (3.5-5.0) L 09/14/23 07:41
Physical Exam
-
Vital Signs:
Vital Signs
Temp Pulse Resp BP Pulse Ox
100.5 F H 74 16 129/79 97
09/16/23 11:55 09/16/23 11:55 09/16/23 11:55 09/16/23 11:55 09/16/23 11:55
Cardiovascular:: Regular rate and rhythm
Respiratory:: Bilateral: CTA
Lung Excursion:: Normal
Abdomen:: Nontender and Soft
Extremity Edema:: None: Bilateral: (trace)
Martin Catheter: No
[2023-09-16 15:55] VITALS: BP 137/86
[2023-09-16] MEDS: ULTRAM 50 MG PO (17:14)
[2023-09-16] MEDS: TYLENOL 650 MG PO (18:24)
[2023-09-16 23:55] VITALS: BP 121/79
[2023-09-17] MEDS: TYLENOL 650 MG PO ×3 (04:29→23:26)
[2023-09-17 06:00] VITALS: BMI 38.6
[2023-09-17 07:00] VITALS: BP 130/86
[2023-09-17 07:40] LABS: Hematocrit 34.9 % (37.0-47.0); Mean Corp Hgb Conc. 34.4 g/dL (33.0-37.0); Mean Corpuscular Volume 95.9 fL (81.0-99.0); Mean Platelet Volume 10.6 fL (7.4-10.4); Platelet Count 61 10^3/uL (130-400); Red Blood Cell Count 3.64 10^6/uL (4.20-5.40); Red Cell Dist. Width 14.9 % (11.5-14.5); White Blood Cell Count 3.3 10^3/uL (4.8-10.8)
[2023-09-17 07:44] LABS: Blood Urea Nitrogen 13 mg/dl (7-17); Calcium 8.2 mg/dl (8.4-10.2); Carbon Dioxide 23 mmol/L (22-30); Chloride 102 mmol/L (98-107); Estimated Creatinine Clearance 122 ml/min; Glucose 111 mg/dl (70-99); Potassium 3.9 mmol/L (3.5-5.1); Sodium 129 mmol/L (135-145); eGFR > 60.00
[2023-09-17 09:05] VITALS: BP 128/90; PULSE 71; O2SAT 100
[2023-09-17] MEDS: ELIQUIS 5 MG PO (09:16)
[2023-09-17] MEDS: DESENEX/MITRAZOL/ZEASORB 1 APPLIC TOPICAL ×2 (09:17→20:29)
[2023-09-17] MEDS: CORGARD 20 MG PO (09:17)
[2023-09-17] MEDS: SODIUM CHLORIDE 0.5 GRAM PO (09:17)
[2023-09-17] MEDS: KEPPRA 500 MG PO ×2 (09:21→21:22)
--- NOTE | 2023-09-17 09:38 | W.PN.HOSP.TC ---
Today's Communication/Plan
-
Remains febrile but symptomatically improved with better appetite and energy
Again no signs of active source of infection noted on exam
Continue to monitor leukopenia and thrombocytopenia
Would recheck set of blood cultures if repeat temp elevation tonight
Assessment / Plan
Assessment / Plan
Physical exam:
General: Well Developed, Well Nourished and No Apparent Distress
HEENT: Normocephalic, Atraumatic and Moist Mucous Membranes
Respiratory: Clear to Auscultation; Negative Wheezes, Rales or Rhonchi
Cardiac: Regular Rhythm and S1/S2
GI: Soft, Nontender and Nondistended. Mild nonblanchable rash.
Musculoskeletal: No Clubbing, No Cyanosis and No Edema
Neuro: Awake, Alert and Oriented, generalized weakness and residual left-sided weakness.
Psych: Calm
A/P:
Febrile leukopenia
Fever unclear etiology, infectious(presumed viral) versus tumor fever versus other/ remains febrile off ABX xs 48hrs
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
Immunocompromised host
-CT of the head no new abnormalities
-COVID-19 and influenza negative
-Urinalysis negative
-Blood cultures pending but no growth so far
-With onset of diarrhea All stool cultures including C. difficile negative
-Chest x-ray unremarkable
-Hip pain hip x-ray unremarkable
- supportive care with IVF
- Empiric IV vancomycin and IV cefepime upon admission. ID consulted--> got single dose of cefazolin but then further refused by patient and family due to concerns over crossing blood brain barrier
-Follow-up cultures
-Will add tramadol as needed (she has taken this at home with success)
Hyponatremia, likely SIADH
-Sodium 127--> 131 today
-Nephrology consulted
-Urine sodium 221>> 177, urine osmolarity 776
-Fluid restriction she wants this liberalized placed on 60 ounces
-Salt tabs appreciate nephrology input
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
- f/u at [facility] [place]
-Patient s/p craniotomy, chemoradiation with recurrent x 2, currently on Avastin and osimertinib -->Tagrisso currently on hold until cultures back. I put a call to her outpatient oncology, Dr Carrero [phone]. Dr Gilliland oncology fellow got back
to me and ok holding medication for now and he'll pass on information to Alise.
-� No longer on� dexamethasone
Chronic thrombocytopenia
- at baseline?
- f/u daily CBC
HX seizure disorder
- on SOFTWARE DES[employer] ANALYST levetiracetam 500 mg bid here.
Paroxysmal AF
- on Eliquis
-on nadolol
Essential HTN
- on SOFTWARE DESIGN ANALYST Nadolol 20 daily
Obesity with a body mass index of 40
DVT Px: on Eliquis
Code: Full
Total time spent on today's encounter was 52 minutes which included time spent in counseling the patient/family regarding diagnosis and treatment plan as listed above, goals of care, and symptom management. Case was discussed with nursing staff,
specialists, and care coordinators/case management. All labs and imaging personally reviewed by me. Remainder the time spent in detailed review of previous records, lab data, imaging, and other medical provider documentation.
Anticipated Discharge: 24 - 48 hours
Subjective/Interval History
-
Date of Service: September 17, 2023
More interactive today and states this is the first day had fever when I woke up and first did not have an appetite and able to eat. Still had temperature 101.8 overnight
Objective Data
-
Labs:
Laboratory Results
09/17/23
06:50
WBC 3.3 L
Hgb 12.0
Hct 34.9 L
Plt Count 61 L D
Sodium 129 L
Potassium 3.9
Chloride 102
Carbon Dioxide 23
BUN 13
Creatinine 0.5 L
Glucose 111 H
Calcium 8.2 L
Vital Signs:
Vital Signs
Temp Pulse Resp BP Pulse Ox
97.9 F 95 18 130/86 97
09/17/23 07:00 09/17/23 07:00 09/17/23 07:00 09/17/23 07:00 09/17/23 07:00
I&O
09/16/23 09/17/23 09/18/23
06:59 06:59 06:59
Intake Total 660 / 660 1140 / 1140
Output Total 850 / 850 1050 / 1050
Balance -190 / -190 90 / 90
Review of Systems
-
History Source: Patient
Constitutional: Reports Fever, Fatigue and Weakness
EENT: Reports No Symptoms Reported
Respiratory: Reports No Symptoms
Cardiac: Reports No Symptoms
Abdomen/GI: Reports No Symptoms
Physical Exam
-
General: Well Developed
HEENT: Normocephalic, PERRLA and Good Dentition; Negative Thrush
Respiratory: Clear to Auscultation
Cardiac: Regular Rhythm
GI: Soft and Nontender
Musculoskeletal: Edema, Right Lower Extrem and Edema, Left Lower Extrem
Skin: Warm
Neuro: Awake, Alert and Oriented
Psych: Calm
Data Reviewed
-
Total Time Spent with Patient (in minutes): 56
Labs: Labs Reviewed by me (Leukopenia now at 3.3 trending up/platelets 61,000/sodium 129)
[2023-09-17 09:56] VITALS: BP 128/90; PULSE 71; O2SAT 100
--- NOTE | 2023-09-17 11:47 | W.PN.ID1 ---
Date of Service
Date of Service: September 17, 2023
Today's Communication
Check respiratory viral panel.
Assessment / Plan
# Fever persists
# Diarrhea resolved
-COVID neg, flu neg
- CXR neg
- UA neg
- bcx's neg to date.
- C. diff negative, stool cx negative
- Suspect viral syndrome
Ordered nasal swab for respiratory virus pcr panel
- Observing off abx.
-Follow temps
# Leukopenia not neutropenic
# Chronic thrombocytopenia
# Brain ca with recurrence, on Avastin and osimertinib.
-Per patient, to avoid drugs that crosses blood-brain barrier to prevent metastasis, per her Oncologist.
Pt refusing antibiotics.
Chief Complaint
-: Fever
Subjective / Review of Systems
Continues to feel better. JEAN/appetite/weakness improing. No new sxs.
Vital Signs / Physical Exam
Vital Signs
Vital Signs
Temp Pulse Resp BP Pulse Ox
97.9 F 95 18 130/86 97
09/17/23 07:00 09/17/23 07:00 09/17/23 07:00 09/17/23 07:00 09/17/23 11:21
Physical Exam
Constitutional: No Acute Distress
Head: Other (No frontal or maxillary sinus tenderness)
Eyes: No Conjunctival Hemorrhage and Sclera Anicteric
Cardiovascular: Regular Rate and S1/S2
Pulmonary: Clear
Gastrointestinal: Soft, Non Tender, Non Distended and Normal Bowel Sounds
Genito-Urinary: Negative CVA Tenderness
Extremities: Negative Edema
Neurological: AO x 3
Objective Data
Lab Data
Lab Results
09/17/23 06:50
09/17/23 06:50
Estimated Creat Clear 122 ml/min 09/17/23 06:50
Lactic Acid Cancelled 09/13/23 01:42
Total Bilirubin 0.8 mg/dl (0.2-1.3) 09/14/23 07:41
AST 19 U/L (14-36) 09/14/23 07:41
ALT < 10 U/L (0-35) 09/14/23 07:41
Alkaline Phosphatase 62 U/L (38-126) 09/14/23 07:41
Most recent labs reviewed.
Micro Results:
09/14/23 10:44 Salmonella/Shigella Culture - Final
Feces/Stool No Salmonella, Shigella, Aeromonas or Plesiomonas species
isolated.
Campylobacter Culture - Final
No Campylobacter species isolated.
Shiga Toxin Test - Final
No E. coli Shiga Toxin 1 or 2 detected.
09/12/23 21:32 Blood Culture - Preliminary
Blood/Venous No Growth in 4 days- Final report to follow
09/12/23 21:32 Blood Culture - Preliminary
Blood/Venous No Growth in 4 days- Final report to follow
09/14/23 10:44 C. difficile GDH Antigen & Toxins - Final
Feces/Stool Negative for toxigenic C.difficile
09/12/23 21:32 Influenza Types A & B ([facility]) - Final
Nasal Swab Negative for Influenza A & B, NAAT
Negative results must be combined with clinical observations
and patient history.
Nucleic Acid Amplification test (NAAT)performed on the
[email or web address] platform.
09/13/[address]: No acute intracranial abnormality noted. Postsurgical changes as described above. Limited evaluation for recurrent disease without IV contrast. MRI examination study of choice. New prominence of the lateral ventricles. Symmetric.
NPH versus atrophy.
09/13/23 Left hip XRAY: Mild degenerative changes of the left hip without evidence for acute fracture or dislocation. Diffuse demineralization. Mild degenerative changes of the right hip, pubis symphysis, bilateral sacroiliac joints and partially
visualized lower lumbar spine.
--- NOTE | 2023-09-17 15:06 | W.PN.NEPH.PH ---
Today's Communication / Plan
-
increase salt tab 1gm BID
Assessment/Plan
-
IMP:
Fever unclear etiology
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
Immunocompromised host
hyponatremia
Anaplastic astrocytoma s/p craniotomy and surgery- f/u at [facility] on Tagrisso
Chronic thrombocytopenia
HX seizure disorder
Paroxysmal AF
Essential HTN
Obesity with a body mass index of 40
h/o gout
Plan:
A/w fever gen weakness and dizziness
sodium stable 129 increase salt tab to 1gm BID
Hyponatremia-new onset was normal before
U osmo high 766 possible hypovolemic, but U na high 221-need to repeat ~177 not consistent with hypovolemia
BP stable on BB
continue FR 48 ounces/day
normal TSH
encourage solute intake
off abx per ID
-
-
Date of Service: September 17, 2023
CC / HPI / ROS
-
Chief Complaint:
Hyponatremia
History of Present Illness:
hyponatremia at 129
hemodynamically stable
low grade fever
Review of Systems:
left sided hemiparesis
no n/v but poor appetite
no abd pain or dirrhea
weight stable
Labs
-
Labs:
WBC 3.3 10^3/uL (4.8-10.8) L 09/17/23 06:50
RBC 3.64 10^6/uL (4.20-5.40) L 09/17/23 06:50
Hgb 12.0 g/dL (12.0-16.0) 09/17/23 06:50
Hct 34.9 % (37.0-47.0) L 09/17/23 06:50
Plt Count 61 10^3/uL (130-400) L D 09/17/23 06:50
Sodium 129 mmol/L (135-145) L 09/17/23 06:50
Potassium 3.9 mmol/L (3.5-5.1) 09/17/23 06:50
Chloride 102 mmol/L (98-107) 09/17/23 06:50
Carbon Dioxide 23 mmol/L (22-30) 09/17/23 06:50
BUN 13 mg/dl (7-17) 09/17/23 06:50
Creatinine 0.5 mg/dL (0.6-1.0) L 09/17/23 06:50
eGFR > 60.00 09/17/23 06:50
Glucose 111 mg/dl (70-99) H 09/17/23 06:50
Calcium 8.2 mg/dl (8.4-10.2) L 09/17/23 06:50
Albumin 3.1 g/dl (3.5-5.0) L 09/14/23 07:41
Physical Exam
-
Vital Signs:
Vital Signs
Temp Pulse Resp BP Pulse Ox
97.9 F 95 18 130/86 97
09/17/23 07:00 09/17/23 07:00 09/17/23 07:00 09/17/23 07:00 09/17/23 11:21
Cardiovascular:: Regular rate and rhythm
Respiratory:: Bilateral: CTA
Lung Excursion:: Normal
Abdomen:: Nontender and Soft
Extremity Edema:: None: Bilateral: (trace)
Martin Catheter: No
[2023-09-17 16:35] VITALS: BP 119/81
[2023-09-17] MEDS: SODIUM CHLORIDE 1 GRAM PO (20:29)
[2023-09-17 23:55] VITALS: BP 139/84
[2023-09-18 06:00] VITALS: BMI 38.4
[2023-09-18 07:00] VITALS: BP 121/84
[2023-09-18 09:03] LABS: Hematocrit 35.7 % (37.0-47.0); Hemoglobin 12.3 g/dL (12.0-16.0); Mean Corp Hgb Conc. 34.5 g/dL (33.0-37.0); Mean Corpuscular Hgb 33.2 pg (27.0-31.0); Mean Corpuscular Volume 96.5 fL (81.0-99.0); Platelet Count 61 10^3/uL (130-400); Red Cell Dist. Width 15.1 % (11.5-14.5)
[2023-09-18 09:04] LABS: White Blood Cell Count 2.3 10^3/uL (4.8-10.8)
[2023-09-18 09:49] LABS: Blood Urea Nitrogen 15 mg/dl (7-17); Calcium 8.6 mg/dl (8.4-10.2); Carbon Dioxide 25 mmol/L (22-30); Chloride 101 mmol/L (98-107); Estimated Creatinine Clearance 122 ml/min; Glucose 104 mg/dl (70-99); Potassium 4.1 mmol/L (3.5-5.1); Sodium 133 mmol/L (135-145); eGFR > 60.00
--- NOTE | 2023-09-18 10:30 | W.PN.HOSP.TC ---
Today's Communication/Plan
-
She remains febrile
With all cultures being negative including most recently respiratory viral cultures and most recent blood cultures
Continues to have nightly febrile course but feels fine throughout most of the day
I placed a call to her oncologist at [facility] Dr. Carrero awaiting a callback as latest input from them was to hold her Tagrisso till cultures came back all of which have been negative.
Assessment / Plan
Assessment / Plan
Physical exam:
General: Well Developed, Well Nourished and No Apparent Distress
HEENT: Normocephalic, Atraumatic and Moist Mucous Membranes
Respiratory: Clear to Auscultation; Negative Wheezes, Rales or Rhonchi
Cardiac: Regular Rhythm and S1/S2
GI: Soft, Nontender and Nondistended. Mild nonblanchable rash.
Musculoskeletal: No Clubbing, No Cyanosis and No Edema
Neuro: Awake, Alert and Oriented, generalized weakness and residual left-sided weakness.
Psych: Calm
A/P:
Febrile leukopenia
Fever unclear etiology, infectious(presumed viral) versus tumor fever versus other/ remains febrile off ABX xs 48hrs
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
Immunocompromised host
-CT of the head no new abnormalities
-COVID-19 and influenza negative/viral respiratory panel negative
-Urinalysis negative
-Blood cultures pending but no growth so far
-With onset of diarrhea All stool cultures including C. difficile negative
-Chest x-ray unremarkable
-Hip pain hip x-ray unremarkable
- supportive care with IVF
- Empiric IV vancomycin and IV cefepime upon admission. ID consulted--> got single dose of cefazolin but then further refused by patient and family due to concerns over crossing blood brain barrier
-Follow-up cultures all remain negative including the most recent 1 done on 15 September
-Viral respiratory panel also all negative
-Will add tramadol as needed (she has taken this at home with success)
Hyponatremia, likely SIADH
-Sodium 127--> 131 today
-Nephrology consulted
-Urine sodium 221>> 177, urine osmolarity 776
-Fluid restriction she wants this liberalized placed on 60 ounces
-Salt tabs appreciate nephrology input
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
- f/u at [facility]
-Patient s/p craniotomy, chemoradiation with recurrent x 2, currently on Avastin and osimertinib -->Tagrisso currently on hold until cultures back. I put a call to her outpatient oncology, Dr Carrero [phone]. Dr Gilliland oncology fellow got back
to me and ok holding medication for now and he'll pass on information to Alise.
-� No longer on� dexamethasone
Chronic thrombocytopenia
- at baseline?
- f/u daily CBC
HX seizure disorder
- on BULK SUGAR HANDLER levetiracetam 500 mg bid here.
Paroxysmal AF
- on Eliquis
-on nadolol
Essential HTN
- on BULK SUGAR HANDLER Nadolol 20 daily
Obesity with a body mass index of 40
DVT Px: on Eliquis
Code: Full
Total time spent on today's encounter was 56 minutes which included time spent in counseling the patient/family regarding diagnosis and treatment plan as listed above, goals of care, and symptom management. Case was discussed with nursing staff,
specialists, and care coordinators/case management. All labs and imaging personally reviewed by me. Remainder the time spent in detailed review of previous records, lab data, imaging, and other medical provider documentation.
Anticipated Discharge: Within 24 hours
Subjective/Interval History
-
Date of Service: September 18, 2023
She continues to relate that she has been feeling better every morning although she continues to have nightly fevers she has no other symptoms diarrhea is gone no abdominal pain no respiratory issues no chills
Objective Data
-
Labs:
Laboratory Results
09/18/23
07:41
WBC 2.3 L*
Hgb 12.3
Hct 35.7 L
Plt Count 61 L
Sodium 133 L
Potassium 4.1
Chloride 101
Carbon Dioxide 25
BUN 15
Creatinine 0.4 L
Glucose 104 H
Calcium 8.6
Vital Signs:
Vital Signs
Temp Pulse Resp BP Pulse Ox
97.9 F 71 18 121/84 100
09/18/23 07:00 09/18/23 07:00 09/18/23 07:00 09/18/23 07:00 09/18/23 07:00
I&O
09/17/23 09/18/23 09/19/23
06:59 06:59 06:59
Intake Total 1140 / 1140 240 / 240
Output Total 1050 / 1050 1450 / 1450
Balance 90 / 90 -1210 / -1210
Review of Systems
-
History Source: Patient
Constitutional: Reports Fever; Denies No Appetite (Improved appetite)
EENT: Reports No Symptoms Reported
Cardiac: Reports No Symptoms
Abdomen/GI: Reports No Symptoms
Physical Exam
-
General: Well Developed
HEENT: Normocephalic; Negative Thrush (No signs of thrush on oral exam)
Respiratory: Clear to Auscultation
Cardiac: Regular Rhythm
GI: Soft, Nontender and Nondistended
Musculoskeletal: No Cyanosis
Hematologic / Lymphatic: No Lymphadenopathy
Psych: Calm
Data Reviewed
-
Total Time Spent with Patient (in minutes): 56
Labs: Labs Reviewed by me (White count down to 2.3/platelets 61,000/sodium now up to 133)
[2023-09-18] MEDS: ELIQUIS 5 MG PO (10:44)
[2023-09-18] MEDS: KEPPRA 500 MG PO ×2 (10:44→22:58)
[2023-09-18] MEDS: SODIUM CHLORIDE 1 GRAM PO ×2 (10:44→20:14)
[2023-09-18] MEDS: CORGARD 20 MG PO (10:44)
[2023-09-18] MEDS: DESENEX/MITRAZOL/ZEASORB 1 APPLIC TOPICAL ×2 (10:45→20:14)
[2023-09-18] MEDS: FLUSH (NSS) 1 FLUSH IV ×2 (10:46→10:47)
--- NOTE | 2023-09-18 12:39 | W.PN.NEPH.PH ---
Today's Communication / Plan
-
follow bmp
Assessment/Plan
-
IMP:
Fever unclear etiology
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
Immunocompromised host
hyponatremia
Anaplastic astrocytoma s/p craniotomy and surgery- f/u at [facility] on Tagrisso
Chronic thrombocytopenia
HX seizure disorder
Paroxysmal AF
Essential HTN
Obesity with a body mass index of 40
h/o gout
Plan:
A/w fever gen weakness and dizziness
sodium stable 133 had increased salt tab to 1gm BID
Hyponatremia-new onset was normal before
U osmo high 766 possible hypovolemic, but U na high 221-need to repeat ~177 not consistent with hypovolemia
BP stable on BB
continue FR 48 ounces/day
normal TSH
encourage solute intake
off abx per ID
-
-
Date of Service: September 18, 2023
CC / HPI / ROS
-
Chief Complaint:
Hyponatremia
History of Present Illness:
hyponatremia at 133 on FR and salt tablets
hemodynamically stable
low grade fever
Review of Systems:
left sided hemiparesis
fevers noted
no n/v but poor appetite
no abd pain or dirrhea
weight stable
Labs
-
Labs:
WBC 2.3 10^3/uL (4.8-10.8) L* 09/18/23 07:41
RBC 3.70 10^6/uL (4.20-5.40) L 09/18/23 07:41
Hgb 12.3 g/dL (12.0-16.0) 09/18/23 07:41
Hct 35.7 % (37.0-47.0) L 09/18/23 07:41
Plt Count 61 10^3/uL (130-400) L 09/18/23 07:41
Sodium 133 mmol/L (135-145) L 09/18/23 07:41
Potassium 4.1 mmol/L (3.5-5.1) 09/18/23 07:41
Chloride 101 mmol/L (98-107) 09/18/23 07:41
Carbon Dioxide 25 mmol/L (22-30) 09/18/23 07:41
BUN 15 mg/dl (7-17) 09/18/23 07:41
Creatinine 0.4 mg/dL (0.6-1.0) L 09/18/23 07:41
eGFR > 60.00 09/18/23 07:41
Glucose 104 mg/dl (70-99) H 09/18/23 07:41
Calcium 8.6 mg/dl (8.4-10.2) 09/18/23 07:41
Albumin 3.1 g/dl (3.5-5.0) L 09/14/23 07:41
Physical Exam
-
Vital Signs:
Vital Signs
Temp Pulse Resp BP Pulse Ox
97.9 F 71 18 121/84 100
09/18/23 07:00 09/18/23 07:00 09/18/23 07:00 09/18/23 07:00 09/18/23 07:00
Cardiovascular:: Regular rate and rhythm
Respiratory:: Bilateral: CTA
Lung Excursion:: Normal
Abdomen:: Nontender and Soft
Bowel Sounds:: Normal
Extremity Edema:: None: Bilateral:
Martin Catheter: No
[2023-09-18 15:00] VITALS: BP 141/93
--- NOTE | 2023-09-18 16:04 | W.PN.ID1 ---
Date of Service
Date of Service: September 18, 2023
Today's Communication
schedule tylenol
Assessment / Plan
# Fever persists
# Diarrhea resolved
- bcx's neg to date.
- Suspect viral syndrome - resp viral panel negative but does not rule out resp viruses
- schedule Tylenol
- Observing off abx.
-Follow temps
# Leukopenia not neutropenic
# Chronic thrombocytopenia
# Brain ca with recurrence, on Avastin and osimertinib.
- Per patient, to avoid drugs that crosses blood-brain barrier to prevent metastasis, per her Oncologist.
Pt refusing antibiotics.
Chief Complaint
-: Fever
Subjective / Review of Systems
afebrile
bp stable
leukopenia
declines to speak to me today 'please just dont wake me up'
agrees with scheduling tylenol
Vital Signs / Physical Exam
Vital Signs
Vital Signs
Temp Pulse Resp BP Pulse Ox
100 F 83 18 141/93 100
09/18/23 15:00 09/18/23 15:00 09/18/23 15:00 09/18/23 15:00 09/18/23 15:00
Physical Exam
Constitutional: Chronically Ill
Cardiovascular: Regular Rate and S1/S2; Negative Murmur or Rub
Pulmonary: Clear and Symmetric; Negative Wheezes or Rales
Gastrointestinal: Soft, Non Tender, Non Distended and Normal Bowel Sounds
Skin: Warm and Dry; Negative Rash or Jaundice
Objective Data
Lab Data
Lab Results
09/18/23 07:41
09/18/23 07:41
Estimated Creat Clear 122 ml/min 09/18/23 07:41
Lactic Acid Cancelled 09/13/23 01:42
Total Bilirubin 0.8 mg/dl (0.2-1.3) 09/14/23 07:41
AST 19 U/L (14-36) 09/14/23 07:41
ALT < 10 U/L (0-35) 09/14/23 07:41
Alkaline Phosphatase 62 U/L (38-126) 09/14/23 07:41
Most recent labs reviewed.
Micro Results:
09/12/23 21:32 Blood Culture - Final
Blood/Venous No Growth - Final Report
09/12/23 21:32 Blood Culture - Final
Blood/Venous No Growth - Final Report
09/17/23 19:08 Blood Culture - Pending
Blood/Venous
09/17/23 19:07 Blood Culture - Pending
Blood/Venous
09/17/23 13:53 Influenza Type A (PCR) - Final
Nasalpharynx Not Detected
Influenza Type A (H1) (PCR) - Final
Not Detected
Influenza Type A (H3) (PCR) - Final
Not Detected
Influenza Type B (PCR) - Final
Not Detected
Resp Syncytial Virus Type A (PCR) - Final
Not Detected
Resp Syncytial Virus Type B (PCR) - Final
Not Detected
Adenovirus DNA (PCR) - Final
Not Detected
Human Metapneumovirus (PCR) - Final
Not Detected
Parainfluenza Virus Type 1 (PCR) - Final
Not Detected
Parainfluenza Virus Type 2 (PCR) - Final
Not Detected
Parainfluenza Virus Type 3 (PCR) - Final
Not Detected
Parainfluenza Virus Type 4 - Final
Not Detected
Rhinovirus (PCR) - Final
Not Detected
09/14/23 10:44 Salmonella/Shigella Culture - Final
Feces/Stool No Salmonella, Shigella, Aeromonas or Plesiomonas species
isolated.
Campylobacter Culture - Final
No Campylobacter species isolated.
Shiga Toxin Test - Final
No E. coli Shiga Toxin 1 or 2 detected.
09/14/23 10:44 C. difficile GDH Antigen & Toxins - Final
Feces/Stool Negative for toxigenic C.difficile
09/12/23 21:32 Influenza Types A & B (GOLDEN) - Final
Nasal Swab Negative for Influenza A & B, NAAT
Negative results must be combined with clinical observations
and patient history.
Nucleic Acid Amplification test (NAAT)performed on the
[employer] platform.
09/13/[address]: No acute intracranial abnormality noted. Postsurgical changes as described above. Limited evaluation for recurrent disease without IV contrast. MRI examination study of choice. New prominence of the lateral ventricles. Symmetric.
NPH versus atrophy.
09/13/23 Left hip XRAY: Mild degenerative changes of the left hip without evidence for acute fracture or dislocation. Diffuse demineralization. Mild degenerative changes of the right hip, pubis symphysis, bilateral sacroiliac joints and partially
visualized lower lumbar spine.
--- NOTE | 2023-09-18 17:25 | CM ---
CM following re: d/c planning
Chart reviewed
Pt discharge anticipated within the next 24 hours
Post d/c recommendation is for VN and patient has a hx w/ [facility]
Pt was followed by ID however is refusing antibiotics; she is accepting of Tylenol for pain
No additional d/c needs anticipated, CM will continue to follow and assist with any needs as indicated
PLAN; d/c home no needs anticipated
[2023-09-18] MEDS: TYLENOL 650 MG PO ×2 (18:16→23:00)
[2023-09-18] MEDS: ULTRAM 50 MG PO (20:14)
[2023-09-19 00:05] VITALS: BP 102/58
[2023-09-19 06:00] VITALS: BMI 38.3
[2023-09-19 06:29] LABS: % Basophils 0.4 % (0-2); % Eosinophils 3.4 % (0-6); % Immature Granulocytes 0.4 % (0-0.5); % Lymphocytes 21.4 % (20.5-51.1); % Neutrophils 61.4 % (42.2-75.2); Absolute Eosinophils 0.1 10^3/uL (0-0.7); Absolute Lymphocytes 0.5 10^3/uL (1.2-3.4); Absolute Monocytes 0.3 10^3/uL (0.1-0.6); Absolute Neutrophils 1.5 10^3/uL (1.4-6.5); Hematocrit 35.3 % (37.0-47.0); Hemoglobin 11.6 g/dL (12.0-16.0); Mean Corp Hgb Conc. 32.9 g/dL (33.0-37.0); Mean Corpuscular Hgb 32.7 pg (27.0-31.0); Mean Corpuscular Volume 99.4 fL (81.0-99.0); Mean Platelet Volume 11.1 fL (7.4-10.4); Nucleated Red Blood Cells % 0 %; Platelet Count 62 10^3/uL (130-400); Red Blood Cell Count 3.55 10^6/uL (4.20-5.40); Red Cell Dist. Width 15.1 % (11.5-14.5)
[2023-09-19 06:38] LABS: White Blood Cell Count 2.4 10^3/uL (4.8-10.8)
[2023-09-19 06:53] LABS: Blood Urea Nitrogen 15 mg/dl (7-17); Calcium 8.5 mg/dl (8.4-10.2); Carbon Dioxide 24 mmol/L (22-30); Chloride 102 mmol/L (98-107); Estimated Creatinine Clearance 122 ml/min; Glucose 101 mg/dl (70-99); Sodium 135 mmol/L (135-145); eGFR > 60.00
[2023-09-19 07:44] VITALS: BP 135/88
[2023-09-19] MEDS: SODIUM CHLORIDE 1 GRAM PO ×2 (09:37→20:06)
[2023-09-19] MEDS: ELIQUIS 5 MG PO (09:37)
[2023-09-19] MEDS: KEPPRA 500 MG PO ×2 (09:37→21:53)
[2023-09-19] MEDS: CORGARD 20 MG PO (09:37)
[2023-09-19] MEDS: TYLENOL 650 MG PO ×3 (09:37→23:36)
[2023-09-19] MEDS: DESENEX/MITRAZOL/ZEASORB 1 APPLIC TOPICAL ×2 (09:39→20:07)
--- NOTE | 2023-09-19 09:52 | W.PN.HOSP.TC ---
Today's Communication/Plan
-
With trending down of fever and stabilization of thrombocytopenia felt noninfectious etiology to fever and possible tumor fever discussed with Dr. Carrero again on September 17 her oncologist and he is in favor of discharge planning and resumption of
Tagrisso
Hyponatremia, was also improved up to 135
Platelets remained stable at 61,000
Will confer with patient's spouse as to his comfort for arrangements for home care and VNA follow-up as patient is very resistant to going to rehab due to her immunocompromise situation
Assessment / Plan
Assessment / Plan
Physical exam:
General: Well Developed, Well Nourished and No Apparent Distress
HEENT: Normocephalic, Atraumatic and Moist Mucous Membranes
Respiratory: Clear to Auscultation; Negative Wheezes, Rales or Rhonchi
Cardiac: Regular Rhythm and S1/S2
GI: Soft, Nontender and Nondistended. Mild nonblanchable rash.
Musculoskeletal: No Clubbing, No Cyanosis and No Edema
Neuro: Awake, Alert and Oriented, generalized weakness and residual left-sided weakness.
Psych: Calm
A/P:
Febrile leukopenia/fever course has been trending down on peaks
Fever unclear etiology, infectious(presumed viral) versus tumor fever versus other/ remains febrile off ABX xs 48hrs
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
Immunocompromised host
-CT of the head no new abnormalities
-COVID-19 and influenza negative/viral respiratory panel negative
-Urinalysis negative
-Blood cultures pending but no growth so far
-With onset of diarrhea/ All stool cultures including C. difficile negative
-Chest x-ray unremarkable
-Hip pain hip x-ray unremarkable
- supportive care with IVF
- Empiric IV vancomycin and IV cefepime upon admission. ID consulted--> got single dose of cefazolin but then further refused by patient and family due to concerns over crossing blood brain barrier
-Follow-up cultures all remain negative including the most recent 1 done on 15 September
-Viral respiratory panel also all negative
-Will add tramadol as needed (she has taken this at home with success)
-With trending down of fever and stabilization of thrombocytopenia felt noninfectious etiology to fever and possible tumor fever discussed with Dr. Carrero again on September 17 her oncologist and he is in favor of discharge planning and resumption of
Tagrisso
Hyponatremia, likely SIADH
-Sodium 127--> 131 today
-Nephrology consulted
-Urine sodium 221>> 177, urine osmolarity 776
-Fluid restriction she wants this liberalized placed on 60 ounces
-Salt tabs appreciate nephrology input
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
- f/u at [facility]
-Patient s/p craniotomy, chemoradiation with recurrent x 2, currently on Avastin and osimertinib -->Tagrisso currently on hold until cultures back. I put a call to her outpatient oncology, Dr Carrero [phone]. Dr Gilliland oncology fellow got back
to me and ok holding medication for now and he'll pass on information to Alise.
-� No longer on� dexamethasone
Chronic thrombocytopenia
- at baseline?
- f/u daily CBC
HX seizure disorder
- on SYSTEM SUPPORT DEVELOPER levetiracetam 500 mg bid here.
Paroxysmal AF
- on Eliquis
-on nadolol
Essential HTN
- on SYSTEM SUPPORT DEVELOPER Nadolol 20 daily
Obesity with a body mass index of 40
DVT Px: on Eliquis
Code: Full
Total time spent on today's encounter was 56 minutes which included time spent in counseling the patient/family regarding diagnosis and treatment plan as listed above, goals of care, and symptom management. Case was discussed with nursing staff,
specialists, and care coordinators/case management. All labs and imaging personally reviewed by me. Remainder the time spent in detailed review of previous records, lab data, imaging, and other medical provider documentation.
Anticipated Discharge: Within 24 hours
Subjective/Interval History
-
Date of Service: September 19, 2023
Actually for the first time only had a low-grade temp overnight and feels well this morning I informed her I did talk to Dr. Carrero again and he wants her to restart the Tagrisso she will have to be brought in from outside
Objective Data
-
Labs:
Laboratory Results
09/19/23
06:14
WBC 2.4 L*
Hgb 11.6 L
Hct 35.3 L
Plt Count 62 L
Sodium 135
Potassium 4.0
Chloride 102
Carbon Dioxide 24
BUN 15
Creatinine 0.4 L
Glucose 101 H
Calcium 8.5
Vital Signs:
Vital Signs
Temp Pulse Resp BP Pulse Ox
98.3 F 75 16 135/88 99
09/19/23 07:44 09/19/23 07:44 09/19/23 07:44 09/19/23 07:44 09/19/23 07:44
I&O
09/18/23 09/19/23 09/20/23
06:59 06:59 06:59
Intake Total 240 / 240 720 / 720
Output Total 1450 / 1450 1100 / 1100
Balance -1210 / -1210 -380 / -380
Review of Systems
-
History Source: Patient
Constitutional: Reports Fatigue and Weakness
Respiratory: Reports No Symptoms
Cardiac: Reports No Symptoms
Abdomen/GI: Reports No Symptoms
Physical Exam
-
General: Well Nourished and Appears Chronically Ill
HEENT: Normocephalic
Respiratory: Clear to Auscultation
Cardiac: Regular Rhythm
GI: Soft and Nontender
Neuro: Awake, Alert and Oriented
Psych: Calm
Data Reviewed
-
Total Time Spent with Patient (in minutes): 56
Labs: Labs Reviewed by me
--- NOTE | 2023-09-19 12:02 | W.PN.ID1 ---
Date of Service
Date of Service: September 19, 2023
Today's Communication
- schedule Tylenol - would continue at least 1-2 weeks
early follow up with oncology
Assessment / Plan
# Fever persists
# Diarrhea resolved
- bcx's neg to date.
- Suspect viral syndrome - resp viral panel negative but does not rule out resp viruses
- schedule Tylenol - would continue at least 1-2 weeks; discussed with patient
- Observing off abx.
-Follow temps
# Leukopenia not neutropenic
# Chronic thrombocytopenia
# Brain ca with recurrence, on Avastin and osimertinib.
- Per patient, to avoid drugs that crosses blood-brain barrier to prevent metastasis, per her Oncologist.
Pt refusing antibiotics.
Would agree with early follow up with hematology
Chief Complaint
-: Fever
Subjective / Review of Systems
afebrile
bp stable
leukopenia ongoing, borderline neutropenia
cr stable
blood cultures remain no growth
'I feel much better'
Vital Signs / Physical Exam
Vital Signs
Vital Signs
Temp Pulse Resp BP Pulse Ox
98.3 F 75 16 135/88 99
09/19/23 07:44 09/19/23 07:44 09/19/23 07:44 09/19/23 07:44 09/19/23 07:44
Physical Exam
Constitutional: No Acute Distress
Cardiovascular: Regular Rate and S1/S2; Negative Murmur or Rub
Pulmonary: Clear and Symmetric; Negative Wheezes or Rales
Gastrointestinal: Soft, Non Tender, Non Distended and Normal Bowel Sounds
Skin: Warm and Dry; Negative Rash or Jaundice
Objective Data
Lab Data
Lab Results
09/19/23 06:14
09/19/23 06:14
Estimated Creat Clear 122 ml/min 03/23/24 06:14
Lactic Acid Cancelled 09/13/23 01:42
Total Bilirubin 0.8 mg/dl (0.2-1.3) 09/14/23 07:41
AST 19 U/L (14-36) 09/14/23 07:41
ALT < 10 U/L (0-35) 09/14/23 07:41
Alkaline Phosphatase 62 U/L (38-126) 09/14/23 07:41
Most recent labs reviewed.
Micro Results:
09/17/23 19:07 Blood Culture - Preliminary
Blood/Venous No Growth in 24 hours- Final report to follow
09/17/23 19:08 Blood Culture - Preliminary
Blood/Venous No Growth in 24 hours- Final report to follow
09/12/23 21:32 Blood Culture - Final
Blood/Venous No Growth - Final Report
09/12/23 21:32 Blood Culture - Final
Blood/Venous No Growth - Final Report
09/17/23 13:53 Influenza Type A (PCR) - Final
Nasalpharynx Not Detected
Influenza Type A (H1) (PCR) - Final
Not Detected
Influenza Type A (H3) (PCR) - Final
Not Detected
Influenza Type B (PCR) - Final
Not Detected
Resp Syncytial Virus Type A (PCR) - Final
Not Detected
Resp Syncytial Virus Type B (PCR) - Final
Not Detected
Adenovirus DNA (PCR) - Final
Not Detected
Human Metapneumovirus (PCR) - Final
Not Detected
Parainfluenza Virus Type 1 (PCR) - Final
Not Detected
Parainfluenza Virus Type 2 (PCR) - Final
Not Detected
Parainfluenza Virus Type 3 (PCR) - Final
Not Detected
Parainfluenza Virus Type 4 - Final
Not Detected
Rhinovirus (PCR) - Final
Not Detected
09/14/23 10:44 Salmonella/Shigella Culture - Final
Feces/Stool No Salmonella, Shigella, Aeromonas or Plesiomonas species
isolated.
Campylobacter Culture - Final
No Campylobacter species isolated.
Shiga Toxin Test - Final
No E. coli Shiga Toxin 1 or 2 detected.
09/14/23 10:44 C. difficile GDH Antigen & Toxins - Final
Feces/Stool Negative for toxigenic C.difficile
09/12/23 21:32 Influenza Types A & B (GOLDEN) - Final
Nasal Swab Negative for Influenza A & B, NAAT
Negative results must be combined with clinical observations
and patient history.
Nucleic Acid Amplification test (NAAT)performed on the
[employer] platform.
--- NOTE | 2023-09-19 12:56 | CM ---
Patient seen with therapy, discussed patient plan is to return home with home care services from [facility], referral sent in [facility]. CM will continueto follow for discharge planning needs.
Plan; return home with home services from [facility].
--- NOTE | 2023-09-19 14:38 | W.PN.NEPH.PH ---
Today's Communication / Plan
-
sign off
Assessment/Plan
-
IMP:
Fever unclear etiology
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
Immunocompromised host
hyponatremia
Anaplastic astrocytoma s/p craniotomy and surgery- f/u at [facility] on Tagrisso
Chronic thrombocytopenia
HX seizure disorder
Paroxysmal AF
Essential HTN
Obesity with a body mass index of 40
h/o gout
Plan:
A/w fever gen weakness and dizziness
sodium stable 135 with ncreased salt tab to 1gm BID
Hyponatremia-new onset was normal before
U osmo high 766 possible hypovolemic, but U na high 221-need to repeat ~177 not consistent with hypovolemia
BP stable on BB
continue FR 48 ounces/day
normal TSH
encourage solute intake
we will sign off
-
-
Date of Service: September 19, 2023
CC / HPI / ROS
-
Chief Complaint:
Hyponatremia
History of Present Illness:
hyponatremia at 135 on FR and salt tablets
hemodynamically stable
low grade fever
Review of Systems:
left sided hemiparesis
no n/v but poor appetite
no abd pain or diarrhea
weight stable
Labs
-
Labs:
WBC 2.4 10^3/uL (4.8-10.8) L* 09/19/23 06:14
RBC 3.55 10^6/uL (4.20-5.40) L 09/19/23 06:14
Hgb 11.6 g/dL (12.0-16.0) L 09/19/23 06:14
Hct 35.3 % (37.0-47.0) L 09/19/23 06:14
Plt Count 62 10^3/uL (130-400) L 09/19/23 06:14
Sodium 135 mmol/L (135-145) 09/19/23 06:14
Potassium 4.0 mmol/L (3.5-5.1) 09/19/23 06:14
Chloride 102 mmol/L (98-107) 09/19/23 06:14
Carbon Dioxide 24 mmol/L (22-30) 09/19/23 06:14
BUN 15 mg/dl (7-17) 09/19/23 06:14
Creatinine 0.4 mg/dL (0.6-1.0) L 09/19/23 06:14
eGFR > 60.00 09/19/23 06:14
Glucose 101 mg/dl (70-99) H 09/19/23 06:14
Calcium 8.5 mg/dl (8.4-10.2) 09/19/23 06:14
Albumin 3.1 g/dl (3.5-5.0) L 09/14/23 07:41
Physical Exam
-
Vital Signs:
Vital Signs
Temp Pulse Resp BP Pulse Ox
98.3 F 75 16 135/88 99
09/19/23 07:44 09/19/23 07:44 09/19/23 07:44 09/19/23 07:44 09/19/23 07:44
Cardiovascular:: Regular rate and rhythm
Respiratory:: Bilateral: CTA
Lung Excursion:: Normal
Abdomen:: Nontender and Soft
Bowel Sounds:: Normal
[2023-09-19] MEDS: ULTRAM 50 MG PO (14:58)
[2023-09-19 16:15] VITALS: BP 105/76
[2023-09-19] MEDS: NON-FORMULARY ITEM 80 MG PO (20:14)
[2023-09-19 23:15] VITALS: BP 103/63
[2023-09-20 06:00] VITALS: BMI 38.4
[2023-09-20 07:45] VITALS: BP 122/85
[2023-09-20 07:50] LABS: Hematocrit 35.5 % (37.0-47.0); Hemoglobin 11.3 g/dL (12.0-16.0); Mean Corp Hgb Conc. 31.8 g/dL (33.0-37.0); Mean Corpuscular Hgb 32.3 pg (27.0-31.0); Mean Corpuscular Volume 101.4 fL (81.0-99.0); Mean Platelet Volume 10.1 fL (7.4-10.4); Platelet Count 60 10^3/uL (130-400); Red Cell Dist. Width 15.2 % (11.5-14.5); White Blood Cell Count 2.6 10^3/uL (4.8-10.8)
[2023-09-20] MEDS: CORGARD 20 MG PO (07:53)
[2023-09-20] MEDS: ELIQUIS 5 MG PO (07:53)
[2023-09-20] MEDS: TYLENOL 650 MG PO ×2 (07:53→15:27)
[2023-09-20] MEDS: SODIUM CHLORIDE 1 GRAM PO ×2 (07:53→20:10)
[2023-09-20] MEDS: DESENEX/MITRAZOL/ZEASORB 1 APPLIC TOPICAL ×2 (07:54→20:12)
--- NOTE | 2023-09-20 09:06 | W.DS.TRANS ---
DC Summary - Waste [employer]
-
Discharge Instructions:
Sleep Apnea Risk Low
Discharge Diagnosis/Procedures Febrile leukopenia
Hyponatremia with SIADH
No infection found suspect tumor fever
Chronic thrombocytopenia
Brain cancer/glioblastoma/with recurrent
Diet As tolerated
Activity As tolerated
Driving Restrictions As prior to admission
Instructions:
Stand-Alone Forms:
Changes to Home Medications: Yes
Discharge Medications:
DC Medications w/original date entered in [employer]
acetaminophen 325 mg tablet 650 mg PO Q6HPRN PRN mild pain/fever 09/07/22
nadolol 20 mg tablet 20 mg PO DAILY Blood pressure 09/07/22
Awilda 1 tab PO DAILY Allergies 09/13/23
apixaban 2.5 mg tablet (Eliquis) 2.5 mg PO BID Blood Clot Prevention/Tx 09/13/23
baclofen 5 mg tablet 5 mg PO Q8HPRN PRN muscle spasms 09/13/23
clobetasol 0.05 % topical ointment 1 applic topical BID PRN apply to head 09/13/23
hydrocortisone 2.5 % topical cream 1 applic topical BID PRN apply to B/L abdomen/B/L knees 09/13/23
levetiracetam 500 mg tablet 500 mg PO Q12H Seizures 09/13/23
lidocaine 5 % topical patch 1 patch topical BIDPRN PRN apply to left hip/left shoulder 09/13/23
osimertinib 80 mg tablet (Tagrisso) 80 mg PO DAILY@1999 Cancer 09/13/23
tramadol 50 mg tablet 50 mg PO Q6H PRN severe pain 09/13/23
sodium chloride 1,000 mg soluble tablet 1,000 mg PO BID #60 tabs 09/20/23
Home Medication Changes
sodium chloride 1,000 mg soluble tablet 1,000 mg PO BID #60 tabs 09/20/23
Pending Results: No
Total time spent discharging patient (in min): 38
[2023-09-20] MEDS: KEPPRA 500 MG PO ×2 (09:32→21:39)
--- NOTE | 2023-09-20 09:40 | W.PN.UPDATE ---
Update Note
Progress Note Update
Patient is medically stable for discharge and patient had agreed to pursue discharge plan and again there is a disagreement between the spouse and the patient as to whether she can go home spouse seems to think that he is can have difficulty taking
care of her I have no issue either way I will leave the discharge order is in place for discharged with [facility] will talk to case management for arrangements for possible need for rehab
--- NOTE | 2023-09-20 10:34 | CM ---
CM met with patient and , patient would like to return home with services. Patients feels as though he cannot care for her and feels patient would benefit from acute rehab. Patients reports if patient returned home and cannot
get up on her own, he is unsure if he can lift her. Patients reports patient has been to SNF in the past and it was of no help, patient has been to [facility] and benefited greatly. TT sent to PT/OT to see if they
can evaluate patient today. CM will follow PT/OT evals, will send referrals to Acute Rehab pending PT evals. CM will continue to follow for discharge planning needs.
Plan; Acute rehab pending PT/OT evals.
[2023-09-20 12:38] VITALS: BP 122/85
[2023-09-20 14:20] VITALS: BP 123/78; PULSE 73
[2023-09-20 14:42] VITALS: BP 123/78; PULSE 79
[2023-09-20 15:20] VITALS: BP 122/84
--- NOTE | 2023-09-20 16:08 | W.PN.ID1 ---
Date of Service
Date of Service: September 20, 2023
Today's Communication
- schedule Tylenol - would continue at least 1-2 weeks
Would agree with dc with early follow up with hematology
Assessment / Plan
# Fever persists
# Diarrhea resolved
- bcx's neg to date.
- Suspect viral syndrome - resp viral panel negative but does not rule out resp viruses
- schedule Tylenol - would continue at least 1-2 weeks
- Observing off abx.
-Follow temps
# Leukopenia not neutropenic
# Chronic thrombocytopenia
# Brain ca with recurrence, on Avastin and osimertinib.
- Per patient, to avoid drugs that crosses blood-brain barrier to prevent metastasis, per her Oncologist.
Pt refusing antibiotics.
Would agree with dc with early follow up with hematology
Chief Complaint
-: Fever
Subjective / Review of Systems
afebrile
bp stable
slightly improved leukopenia
cr stable
blood cultures no growth to date
no new complaints
Vital Signs / Physical Exam
Vital Signs
Vital Signs
Temp Pulse Resp BP Pulse Ox
98.3 F 75 16 122/84 100
09/20/23 15:20 09/20/23 15:20 09/20/23 15:20 09/20/23 15:20 09/20/23 15:20
Physical Exam
Constitutional: No Acute Distress, Chronically Ill and Obese
Cardiovascular: Regular Rate and S1/S2; Negative Murmur or Rub
Pulmonary: Clear and Symmetric; Negative Wheezes or Rales
Gastrointestinal: Soft, Non Tender, Non Distended and Normal Bowel Sounds
Skin: Warm and Dry; Negative Rash or Jaundice
Objective Data
Lab Data
Lab Results
09/20/23 06:49
09/19/23 06:14
Estimated Creat Clear 122 ml/min 09/19/23 06:14
Lactic Acid Cancelled 09/13/23 01:42
Total Bilirubin 0.8 mg/dl (0.2-1.3) 09/14/23 07:41
AST 19 U/L (14-36) 09/14/23 07:41
ALT < 10 U/L (0-35) 09/14/23 07:41
Alkaline Phosphatase 62 U/L (38-126) 09/14/23 07:41
Most recent labs reviewed.
Micro Results:
09/17/23 19:08 Blood Culture - Preliminary
Blood/Venous No Growth in 48 hours- Final report to follow
09/17/23 19:07 Blood Culture - Preliminary
Blood/Venous No Growth in 48 hours- Final report to follow
09/12/23 21:32 Blood Culture - Final
Blood/Venous No Growth - Final Report
09/12/23 21:32 Blood Culture - Final
Blood/Venous No Growth - Final Report
09/17/23 13:53 Influenza Type A (PCR) - Final
Nasalpharynx Not Detected
Influenza Type A (H1) (PCR) - Final
Not Detected
Influenza Type A (H3) (PCR) - Final
Not Detected
Influenza Type B (PCR) - Final
Not Detected
Resp Syncytial Virus Type A (PCR) - Final
Not Detected
Resp Syncytial Virus Type B (PCR) - Final
Not Detected
Adenovirus DNA (PCR) - Final
Not Detected
Human Metapneumovirus (PCR) - Final
Not Detected
Parainfluenza Virus Type 1 (PCR) - Final
Not Detected
Parainfluenza Virus Type 2 (PCR) - Final
Not Detected
Parainfluenza Virus Type 3 (PCR) - Final
Not Detected
Parainfluenza Virus Type 4 - Final
Not Detected
Rhinovirus (PCR) - Final
Not Detected
09/14/23 10:44 Salmonella/Shigella Culture - Final
Feces/Stool No Salmonella, Shigella, Aeromonas or Plesiomonas species
isolated.
Campylobacter Culture - Final
No Campylobacter species isolated.
Shiga Toxin Test - Final
No E. coli Shiga Toxin 1 or 2 detected.
09/14/23 10:44 C. difficile GDH Antigen & Toxins - Final
Feces/Stool Negative for toxigenic C.difficile
09/12/23 21:32 Influenza Types A & B ([facility]EN) - Final
Nasal Swab Negative for Influenza A & B, NAAT
Negative results must be combined with clinical observations
and patient history.
Nucleic Acid Amplification test (NAAT)performed on the
[employer] platform.
[2023-09-20] MEDS: NON-FORMULARY ITEM 80 MG PO (19:48)
[2023-09-20] MEDS: ULTRAM 50 MG PO (20:10)
[2023-09-20 23:55] VITALS: BP 125/80
[2023-09-21] MEDS: TYLENOL 650 MG PO ×3 (00:51→17:42)
[2023-09-21 06:00] VITALS: BMI 38.3
[2023-09-21 07:22] VITALS: BP 125/87
--- NOTE | 2023-09-21 07:59 | W.PN.HOSP.TC ---
Addendum entered and electronically signed by Jean Wilhelm MD 09/21/23 17:44:
Pancytopenia due to oral chemotherapy
Original Note:
Today's Communication/Plan
-
Continue current management. Discharge planning in progress
Assessment / Plan
Assessment / Plan
Physical exam:
General: Well Developed, Well Nourished and No Apparent Distress
HEENT: Normocephalic, Atraumatic and Moist Mucous Membranes
Respiratory: Clear to Auscultation; Negative Wheezes, Rales or Rhonchi
Cardiac: Regular Rhythm and S1/S2
GI: Soft, Nontender and Nondistended. Mild nonblanchable rash.
Musculoskeletal: No Clubbing, No Cyanosis and No Edema
Neuro: Awake, Alert and Oriented, generalized weakness and residual left-sided weakness.
Psych: Calm
A/P:
Febrile leukopenia/fever course has been trending down on peaks--> currently remains afebrile.
Fever unclear etiology, infectious(presumed viral) versus tumor fever versus other/ remains febrile off ABX xs 48hrs
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
Immunocompromised host
-CT of the head no new abnormalities
-COVID-19 and influenza negative/viral respiratory panel negative
-Urinalysis negative
-Blood cultures no growth so far
-With onset of diarrhea/ All stool cultures including C. difficile negative
-Chest x-ray unremarkable
-Hip pain hip x-ray unremarkable
- supportive care with IVF
- Empiric IV vancomycin and IV cefepime upon admission. ID consulted--> got single dose of cefazolin but then further refused by patient and family due to concerns over crossing blood brain barrier
-Follow-up cultures all remain negative including the most recent one done on 15 September
-Viral respiratory panel also all negative
-Will add tramadol as needed (she has taken this at home with success)
-With trending down of fever and stabilization of thrombocytopenia felt noninfectious etiology to fever and possible tumor fever discussed by Dr Pike with Dr. Carrero her oncologist and he is in favor of discharge planning and resumption of
Tagrisso
-Discussed with at bedside today and he is hopeful that she will go to acute rehab (he does not want her to go to SNF rather would take home but given her profound deconditioning and is not clear that he would be able to do).
Hyponatremia, likely SIADH
-Sodium 127--> 135 today
-Nephrology consulted
-Urine sodium 221>> 177, urine osmolarity 776
-Fluid restriction she wants this liberalized placed on 60 ounces
-Salt tabs appreciate nephrology input
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
- f/u at [facility]
-Patient s/p craniotomy, chemoradiation with recurrent x 2, currently on Avastin and osimertinib -->Tagrisso currently on hold until cultures back. I put a call to her outpatient oncology, Dr Carrero [phone]. Dr Gilliland oncology fellow got back
to me and ok holding medication for now and he'll pass on information to Alise.
-� No longer on� dexamethasone
Chronic thrombocytopenia
- at baseline?
- f/u daily CBC
HX seizure disorder
- on PSYCHOLOGY TEACHER levetiracetam 500 mg bid here.
Paroxysmal AF
- on Eliquis
-on nadolol
Essential HTN
- on PSYCHOLOGY TEACHER Nadolol 20 daily
Obesity with a body mass index of 40
DVT Px: on Eliquis
Code: Full
Anticipated Discharge: Within 24 hours
Subjective/Interval History
-
Date of Service: September 21, 2023
Patient remains deconditioned with generalized weakness and requires significant assistance to move around. Remains afebrile. No chest pain shortness of breath nausea or vomiting.
Objective Data
-
Vital Signs:
Vital Signs
Temp Pulse Resp BP Pulse Ox
98.4 F 89 18 125/80 98
09/20/23 23:55 09/20/23 23:55 09/20/23 23:55 09/20/23 23:55 09/20/23 23:55
I&O
09/20/23 09/21/23 09/22/23
06:59 06:59 06:59
Intake Total 720 / 720 250 / 250
Output Total 375 / 375 425 / 425
Balance 345 / 345 -175 / -175
[2023-09-21] MEDS: CORGARD 20 MG PO (08:52)
[2023-09-21] MEDS: ELIQUIS 5 MG PO (08:52)
[2023-09-21] MEDS: SODIUM CHLORIDE 1 GRAM PO ×2 (08:52→21:07)
[2023-09-21] MEDS: DESENEX/MITRAZOL/ZEASORB 1 APPLIC TOPICAL ×2 (08:53→21:07)
[2023-09-21] MEDS: KEPPRA 500 MG PO ×2 (08:59→21:22)
--- NOTE | 2023-09-21 15:24 | W.PN.ID1 ---
Date of Service
Date of Service: September 21, 2023
Today's Communication
Observe off antibiotics
Assessment / Plan
# Fever
- resolved
# Diarrhea resolved
- bcx's neg to date.
- Suspect viral syndrome - resp viral panel negative but does not rule out resp viruses
- schedule Tylenol - would continue at least 1-2 weeks
- Observing off abx.
-Follow temps
# Leukopenia not neutropenic
# Chronic thrombocytopenia
# Brain ca with recurrence, on Avastin and osimertinib.
- Per patient, to avoid drugs that crosses blood-brain barrier to prevent metastasis, per her Oncologist.
Pt refusing antibiotics.
Chief Complaint
-: Fever
Subjective / Review of Systems
Review of Systems: No Fever and No Chills
Vital Signs / Physical Exam
Vital Signs
Vital Signs
Temp Pulse Resp BP Pulse Ox
97.5 F 73 20 125/87 99
09/21/23 07:22 09/21/23 07:22 09/21/23 07:22 09/21/23 07:22 09/21/23 08:30
Physical Exam
Constitutional: No Acute Distress and Comfortable
Eyes: Sclera Anicteric
Pulmonary: Non Labored; Negative Wheezes
Gastrointestinal: Non Distended
Neurological: Awake and Alert
Psychological: Calm
Objective Data
Lab Data
Lab Results
09/20/23 06:49
09/19/23 06:14
Estimated Creat Clear 122 ml/min 09/19/23 06:14
Lactic Acid Cancelled 09/13/23 01:42
Total Bilirubin 0.8 mg/dl (0.2-1.3) 09/14/23 07:41
AST 19 U/L (14-36) 09/14/23 07:41
ALT < 10 U/L (0-35) 09/14/23 07:41
Alkaline Phosphatase 62 U/L (38-126) 09/14/23 07:41
Most recent labs reviewed.
Micro Results:
09/17/23 19:07 Blood Culture - Preliminary
Blood/Venous No Growth in 72 hours- Final report to follow
09/17/23 19:08 Blood Culture - Preliminary
Blood/Venous No Growth in 72 hours- Final report to follow
09/12/23 21:32 Blood Culture - Final
Blood/Venous No Growth - Final Report
09/12/23 21:32 Blood Culture - Final
Blood/Venous No Growth - Final Report
09/17/23 13:53 Influenza Type A (PCR) - Final
Nasalpharynx Not Detected
Influenza Type A (H1) (PCR) - Final
Not Detected
Influenza Type A (H3) (PCR) - Final
Not Detected
Influenza Type B (PCR) - Final
Not Detected
Resp Syncytial Virus Type A (PCR) - Final
Not Detected
Resp Syncytial Virus Type B (PCR) - Final
Not Detected
Adenovirus DNA (PCR) - Final
Not Detected
Human Metapneumovirus (PCR) - Final
Not Detected
Parainfluenza Virus Type 1 (PCR) - Final
Not Detected
Parainfluenza Virus Type 2 (PCR) - Final
Not Detected
Parainfluenza Virus Type 3 (PCR) - Final
Not Detected
Parainfluenza Virus Type 4 - Final
Not Detected
Rhinovirus (PCR) - Final
Not Detected
09/14/23 10:44 Salmonella/Shigella Culture - Final
Feces/Stool No Salmonella, Shigella, Aeromonas or Plesiomonas species
isolated.
Campylobacter Culture - Final
No Campylobacter species isolated.
Shiga Toxin Test - Final
No E. coli Shiga Toxin 1 or 2 detected.
09/14/23 10:44 C. difficile GDH Antigen & Toxins - Final
Feces/Stool Negative for toxigenic C.difficile
09/12/23 21:32 Influenza Types A & B ([facility]) - Final
Nasal Swab Negative for Influenza A & B, NAAT
Negative results must be combined with clinical observations
and patient history.
Nucleic Acid Amplification test (NAAT)performed on the
Rapid [employer] Screening platform.
[2023-09-21 15:55] VITALS: BP 118/82
--- NOTE | 2023-09-21 16:11 | CM ---
CM following re: d/c planning
Chart reviewed
Pt is medically stable for d/c
CM had lengthy discussion at bedside with the patient and her spouse
Pt spouse is advocating for the patient to be discharged to acute rehab post hospital discharge
Acute rehabs requested were [facility]; both placed via care port and denied as clinicals did not meet acute rehab criteria
CM then placed a call to [facility] liaison who also reviewed clinical information and determined that the patient would be more appropriate for SNF
CM sent a TT to patient's hospitalist to have PM&R consult as therapy continues to write for acute rehab
Dr. Mcginnis is out this week and Dr. Johnson is covering reconciliation accountant; awaiting eval. at this time
CM will continue to offer support to the patient and her spouse with disposition efforts/discharge planning
PLAN; CM will follow for d/c needs
--- NOTE | 2023-09-21 16:57 | PN.CDI ---
CDI
- -
CDI:
Physician Documentation Request
Admit Date: 09/13/23 04:01
Dear Doctor Choco,
Please review the following and provide your response in the progress notes.
Clinical Indicators:
Pt admitted with persistent fevers/Leukopenia/ Brain cancer/Immunocompromised
Pt currently on oral Tagrisso
Progress note 09/20, ' Chronic thrombocytopenia.
Blood counts are as below
09/19/23 09/20/23
06:14 06:49
WBC 2.4 L* 2.6 L
Hgb 11.6 L 11.3 L
Hct 35.3 L 35.5 L
Plt Count 62 L 60 L
Please provide a diagnosis for the above lab abnormalities:
Pancytopenia due to Oral Chemotherapy
Drug induced Pancytopenia
Pancytopenia only
Other
Use of terms such as suspected, likely, concern for, or probable (associated with a specific diagnosis that is being evaluated, monitored, or treated as if it exists) are acceptable and can be coded in the inpatient setting, when documented at the
time of discharge.
Thank you,
Aisha Marte RN
CDI Specialist
[place] [facility]
Please use your independent medical judgment in providing your response.
[2023-09-21] MEDS: NON-FORMULARY ITEM 80 MG PO (21:08)
[2023-09-21 23:40] VITALS: BP 122/71
[2023-09-22] MEDS: TYLENOL 650 MG PO ×4 (00:48→23:45)
[2023-09-22 06:00] VITALS: BMI 38.3
[2023-09-22 07:55] VITALS: BP 118/77
[2023-09-22 08:22] LABS: % Basophils 0.4 % (0-2); % Immature Granulocytes 0.4 % (0-0.5); % Neutrophils 70.2 % (42.2-75.2); Absolute Eosinophils 0.1 10^3/uL (0-0.7); Absolute Lymphocytes 0.4 10^3/uL (1.2-3.4); Absolute Monocytes 0.2 10^3/uL (0.1-0.6); Absolute Neutrophils 1.6 10^3/uL (1.4-6.5); Hemoglobin 11.4 g/dL (12.0-16.0); Mean Corp Hgb Conc. 32.6 g/dL (33.0-37.0); Mean Corpuscular Hgb 32.7 pg (27.0-31.0); Mean Corpuscular Volume 100.3 fL (81.0-99.0); Mean Platelet Volume 11.1 fL (7.4-10.4); Nucleated Red Blood Cells % 0 %; Platelet Count 65 10^3/uL (130-400); Red Blood Cell Count 3.49 10^6/uL (4.20-5.40); Red Cell Dist. Width 15.2 % (11.5-14.5)
[2023-09-22 08:23] LABS: White Blood Cell Count 2.3 10^3/uL (4.8-10.8)
[2023-09-22 08:56] LABS: Blood Urea Nitrogen 15 mg/dl (7-17); Calcium 8.9 mg/dl (8.4-10.2); Carbon Dioxide 26 mmol/L (22-30); Chloride 106 mmol/L (98-107); Estimated Creatinine Clearance 122 ml/min; Glucose 96 mg/dl (70-99); Sodium 135 mmol/L (135-145); eGFR > 60.00
--- NOTE | 2023-09-22 09:13 | W.PN.HOSP.TC ---
Today's Communication/Plan
-
Continue current management. Discharge planning in progress.
Assessment / Plan
Assessment / Plan
Physical exam:
General: Well Developed, Well Nourished and No Apparent Distress
HEENT: Normocephalic, Atraumatic and Moist Mucous Membranes
Respiratory: Clear to Auscultation; Negative Wheezes, Rales or Rhonchi
Cardiac: Regular Rhythm and S1/S2
GI: Soft, Nontender and Nondistended. Mild nonblanchable rash.
Musculoskeletal: No Clubbing, No Cyanosis and No Edema
Neuro: Awake, Alert and Oriented, generalized weakness and residual left-sided weakness.
Psych: Calm
A/P:
Febrile leukopenia/fever course has been trending down on peaks--> currently remains afebrile.
Fever unclear etiology, infectious(presumed viral) versus tumor fever versus other/ remains febrile off ABX xs 48hrs
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
Immunocompromised host
-CT of the head no new abnormalities
-COVID-19 and influenza negative/viral respiratory panel negative
-Urinalysis negative
-Blood cultures no growth so far
-With onset of diarrhea/ All stool cultures including C. difficile negative
-Chest x-ray unremarkable
-Hip pain hip x-ray unremarkable
- supportive care with IVF
- Empiric IV vancomycin and IV cefepime upon admission. ID consulted--> got single dose of cefazolin but then further refused by patient and family due to concerns over crossing blood brain barrier
-Follow-up cultures all remain negative including the most recent one done on 15 September
-Viral respiratory panel also all negative
-Will add tramadol as needed (she has taken this at home with success)
-With trending down of fever and stabilization of thrombocytopenia felt noninfectious etiology to fever and possible tumor fever discussed by Dr Pike with Dr. Carrero her oncologist and he is in favor of discharge planning and resumption of
Tagrisso
-Discussed with at bedside today and he is hopeful that she will go to acute rehab (he does not want her to go to SNF rather would take home but given her profound deconditioning and is not clear that he would be able to do).
Hyponatremia, likely SIADH
-Sodium 127--> 135 today
-Nephrology consulted
-Urine sodium 221>> 177, urine osmolarity 776
-Fluid restriction she wants this liberalized placed on 60 ounces
-Salt tabs appreciate nephrology input
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
- f/u at [facility]
-Patient s/p craniotomy, chemoradiation with recurrent x 2, currently on Avastin and osimertinib -->Tagrisso currently on hold until cultures back. I put a call to her outpatient oncology, Dr Carrero [phone]. Dr Gilliland oncology fellow got back
to me and ok holding medication for now and he'll pass on information to Alise.
-� No longer on� dexamethasone
Chronic thrombocytopenia
- at baseline?
- f/u daily CBC
HX seizure disorder
- on AGR[employer]ODU[employer] COMMISSION AGENT levetiracetam 500 mg bid here.
Paroxysmal AF
- on Eliquis
-on nadolol
Essential HTN
- on AGRIC[employer]URAL PRODUCE COMMISSION AGENT Nadolol 20 daily
Obesity with a body mass index of 40
DVT Px: on Eliquis
Code: Full
Anticipated Discharge: 24 - 48 hours
Subjective/Interval History
-
Date of Service: September 22, 2023
Patient seen and examined. Remains afebrile
Objective Data
-
Labs:
Laboratory Results
09/22/23
07:50
WBC 2.3 L*
Hgb 11.4 L
Hct 35.0 L
Plt Count 65 L
Sodium 135
Potassium 4.0
Chloride 106
Carbon Dioxide 26
BUN 15
Creatinine 0.4 L
Glucose 96
Calcium 8.9
Vital Signs:
Vital Signs
Temp Pulse Resp BP Pulse Ox
98.0 F 77 16 118/77 99
09/22/23 07:55 09/22/23 07:55 09/22/23 07:55 09/22/23 07:55 09/22/23 07:55
I&O
09/21/23 09/22/23 09/23/23
06:59 06:59 06:59
Intake Total 250 / 250 1380 / 1380
Output Total 425 / 425 250 / 250
Balance -175 / -175 1130 / 1130
[2023-09-22] MEDS: KEPPRA 500 MG PO ×2 (09:23→20:10)
[2023-09-22] MEDS: DESENEX/MITRAZOL/ZEASORB 1 APPLIC TOPICAL ×2 (09:23→20:14)
[2023-09-22] MEDS: ELIQUIS 5 MG PO (09:23)
[2023-09-22] MEDS: CORGARD 20 MG PO (09:23)
[2023-09-22] MEDS: SODIUM CHLORIDE 1 GRAM PO ×2 (09:24→20:07)
[2023-09-22 15:01] VITALS: BP 119/82; PULSE 82
[2023-09-22 15:55] VITALS: BP 112/77
--- NOTE | 2023-09-22 16:10 | CM ---
CM following re: d/c planning
Chart reviewed
Pt medically stable for d/c
Pt was re-assessed by both PT & OT with patient's spouse at bedside
Both therapy disciplines continue to support acute rehab post hospital discharge
Pt also waiting to be seen by physiatry for clinical eval
CM to resubmit documentation for insurance approval to the following: [facility] & [facility]
CM will remain available to the patient and her spouse and will continue to follow for d/c planning needs as indicated
PLAN; CM following for needs; (awaiting PM&R eval. for recommendations r/t to discharge planning)
--- NOTE | 2023-09-22 17:45 | CON.MR ---
Consultation
Consultation Request
Date/Time Consultation Performed: 09/22/23 1730
Performing Provider: Dr. Johnson
Reason for Consultation: Weakness
Medical History
-
Chief Complaint: Weakness
History of Present Illness:
I had the opportunity to see Deepali Cortez in rehabilitation consultation. 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 Admitted on
09/13/23 with increased fever, chills, weakness, difficulty with mobility and needed increased assistance at home. Did have more dizziness and possible vertigo symptoms. normally patient with use of wheelchair at home, but mostly independent
with transfers ( states helps 10%), and was getting home PT and OT through [facility]. Would ambulate with the therapy and has set up in garage with handrails that she can ambulate holding rail and he trails behind with
wheelchair. Patient follows at [facility] for her astrocytoma. Outpatient Oncology Dr. Carrero [phone].
Hospital course with diarrhea, Cdiff negative, and has had persistent fevers. Blood cultures negative. Leukopenia, thrombocytopenia felt due to chemotherapy. Fevers felt due to possible viral syndrome, but respiratory viral panel has been
negative. History of EBV in the past, and fevers felt possibly due to viral syndrome vs. central fever with brain tumor recurrence? Patient with hyponatremia felt possibly SIADH but NA levels have improved with fluid restrictions and salt tabs.
Clinically patient has been improving, but still remains with weakness more than baseline and difficulty with self care and mobility compared to baseline. We were consulted for further evaluation of possible rehabilitation options.
Patient seen at bedside this evening with at bedside. Confirmed with her baseline status. Patient states she feels 'better today' and denies any chest pain, SOB, no GI complaints today. Still occasional dizziness with position
changes or if her head is looking down or bending forward. No vision changes. Denies any pain in the left UE or LE. No other complaints today.
�
Social History
Functional Level Premorbidity:
Hx WC mobile and independent to min A with standing and one person pediatric physical therapy assistant with TF out of WC.
Current Funct Level: Ambulation, Transfer, UE/LE Dressing:
max A bed mobility, max assist transfer, mod-max A x2 for transfer with hemiwalker.
Personal:
Living: With Spouse
Number of Floors: 2
# Steps to Enter: 1
Potential First Floor Set Up: Yes
Allergies / Home Medications
Allergy/AdvReac Type Severity Reaction Status Date / Time
hylan G-F 20 [From Synvisc] Allergy Swelling Verified 09/12/23 20:29
levofloxacin [From Levaquin] Allergy Unknown Verified 09/12/23 20:29
niacin Allergy Unknown Verified 09/12/23 20:29
Sulfa (Sulfonamide Allergy Rash Verified 09/12/23 20:29
Antibiotics)
Tetracyclines Allergy Rash Verified 09/12/23 20:29
dextrose solution in Fe Allergy phelbitis Uncoded 09/12/23 20:29
infusion
monostat Allergy Unknown Uncoded 09/12/23 20:29
seasonal Allergy itchy Uncoded 09/12/23 20:29
eyes,sneezing
Medication Instructions Recorded Confirmed Last Taken Type
acetaminophen 325 mg tablet 650 mg PO Q6HPRN PRN mild 09/07/22 09/13/23 Unknown History
pain/fever
nadolol 20 mg tablet 20 mg PO DAILY Blood pressure 09/07/22 09/13/23 09/06/22 08:00 History
Awilda 1 tab PO DAILY Allergies 09/13/23 09/13/23 Unknown History
apixaban 2.5 mg tablet (Eliquis) 2.5 mg PO BID Blood Clot 09/13/23 09/13/23 Unknown History
Prevention/Tx
baclofen 5 mg tablet 5 mg PO Q8HPRN PRN muscle spasms 09/13/23 09/13/23 Unknown History
clobetasol 0.05 % topical ointment 1 applic topical BID PRN apply to 09/13/23 09/13/23 Unknown History
head
hydrocortisone 2.5 % topical cream 1 applic topical BID PRN apply to 09/13/23 09/13/23 Unknown History
B/L abdomen/B/L knees
levetiracetam 500 mg tablet 500 mg PO Q12H Seizures 09/13/23 09/13/23 Unknown History
lidocaine 5 % topical patch 1 patch topical BIDPRN PRN apply 09/13/23 09/13/23 Unknown History
to left hip/left shoulder
osimertinib 80 mg tablet (Tagrisso) 80 mg PO DAILY@1999 Cancer 09/13/23 09/13/23 Unknown History
tramadol 50 mg tablet 50 mg PO Q6H PRN severe pain 09/13/23 09/13/23 Unknown History
sodium chloride 1,000 mg soluble 1,000 mg PO BID #60 tabs 09/20/23 Unknown Rx
tablet
Review Of Systems
-
History Source: Patient
All other systems: Negative unless noted
Constitutional: Reports Fatigue
Eye: Reports No Symptoms
EENT: Reports No Symptoms
Respiratory: Reports No Symptoms
Cardiac: Reports No Symptoms
Abdomen/GI: Reports Diarrhea
: Reports No Symptoms
Musculoskeletal: Reports Edema
Integumentary: Reports No Symptoms
Neurological: Reports Weakness and Numbness
Psych: Reports No Symptoms
Endocrine: Reports No Symptoms
Hematologic/Lymphatic: Reports Other (leukopenia, thrombocytopenia)
Immunology: Reports Weakened Immune System
Physical Exam
Active Medications
Generic Name Dose Route Start Last Admin
Trade Name Freq PRN Reason Stop Dose Admin
Acetaminophen 650 mg 09/18/23 16:00 09/22/23 16:37
Acetaminophen 325 Mg Tablet PO 10/16/23 15:59 650 mg
Q8H RADHA Administration
Apixaban 5 mg 09/13/23 08:00 09/22/23 09:23
Apixaban (Eliquis) 5 Mg Tablet PO 10/11/23 07:59 5 mg
DAILY RADHA Administration
Levetiracetam 500 mg 09/13/23 10:00 09/22/23 09:23
Levetiracetam 500 Mg Regular Release Tablet PO 10/11/23 09:59 500 mg
Q12@1000,2200 RADHA Administration
Loperamide HCl 2 mg 09/14/23 14:11 09/14/23 13:54
Loperamide 2 Mg Capsule PO 10/12/23 14:10 2 mg
Q4HPRN PRN Administration
diarrhea
Miconazole Nitrate 0 applic 09/14/23 08:00 09/22/23 09:23
Miconazole Powder Bottle TOPICAL 10/12/23 07:59 1 applic
BID RADHA Administration
Nadolol 20 mg 09/13/23 08:00 09/22/23 09:23
Nadolol 20 Mg Tablet PO 10/11/23 07:59 20 mg
DAILY RADHA Administration
Pom Osimertinib [ 0 mg 09/19/23 20:00 09/21/23 21:08
Tagrisso] 80 Mg PO 10/17/23 19:59 80 mg
Tablet DAILY@1999 RADHA Administration
Sodium Chloride 0 flush 09/13/23 05:00 09/18/23 10:47
Sodium Chloride 0.9% (Flush) Syringe IV 10/11/23 04:59 1 flush
PER PROTOCOL RADHA Administration
Sodium Chloride 1 gram 09/17/23 20:00 09/22/23 09:24
Sodium Chloride 1 Gram Tablet PO 10/11/23 19:59 1 gram
BID RADHA Administration
Tramadol HCl 50 mg 09/13/23 13:24 09/20/23 20:10
Tramadol Hcl 50 Mg Tablet PO 10/11/23 13:23 50 mg
Q6HPRN PRN Administration
moderate pain
Vital Signs
Temp Pulse Resp BP Pulse Ox
97.8 F 76 20 112/77 100
09/22/23 15:55 09/22/23 15:55 09/22/23 15:55 09/22/23 15:55 09/22/23 15:55
Height 5 ft 7 in
Actual Weight 110.847 kg
Body Mass Index (BMI) 38.3
Physical Exam
Physical Exam:
General Appearance/Observation: Well-developed, obese individual in no apparent distress. Lying comfortably in bed, good spirits
Pain/Comfort Assessment: Denies
Mood/Affect: Appropriate
Eyes: Conjunctiva/Lids: normal Pupils: pupils equal round and reactive to light and Accommodation. Normal tracking, no nystagmus
Ears/Nose/Throat: oral mucosa moist, throat clear. Lips/Teeth/Gums: normal
Cardiovascular: Heart: regular
Respiratory: Respiratory Effort/Chest Expansion: normal, good breath sounds
Gastrointestinal: abdomen not tender, no distension, normal abdominal bowel sounds
Extremities: Edema: 2+ in LLE, 1+ in LUE. no calf tenderness bilaterally. Cyanosis: None Trophic changes: None
Neurology Exam:
Orientation: Alert, Oriented to self, Time, Place
Speech: Intact
Comprehension: Intact
Cranial Nerves: - no asymmetry or deficits
Sensory:
Light touch: Decreased to light touch in LUE compared to right throughout. Minimal sensation to light touch in left lower limb.
Reflexes:
Babinski: positive on left
Clonus: present on left foot/ankle
Rebel: postive left
Musculoskeletal:
Motor: (Manual muscle scale 0-5)
Muscle SA EF WE EE FF FA HF KE DF EHL PF
Right 5 5 5 5 5 5 5 5 5 5 5
Left Tr 1 0 0 Tr 0 Tr 0 Tr Tr 0
Tone: Increased mildly in LLE. No pain with passive motion in LUE or LLE in bed
Range of Motion: Passively within normal limits in all extremities
Lab Results
09/22/23 07:50
09/22/23 07:50
WBC 2.3 10^3/uL (4.8-10.8) L* 09/22/23 07:50
Hgb 11.4 g/dL (12.0-16.0) L 09/22/23 07:50
Hct 35.0 % (37.0-47.0) L 09/22/23 07:50
MCV 100.3 fL (81.0-99.0) H 09/22/23 07:50
Plt Count 65 10^3/uL (130-400) L 09/22/23 07:50
Sodium 135 mmol/L (135-145) 09/22/23 07:50
Potassium 4.0 mmol/L (3.5-5.1) 09/22/23 07:50
Chloride 106 mmol/L (98-107) 09/22/23 07:50
Carbon Dioxide 26 mmol/L (22-30) 09/22/23 07:50
BUN 15 mg/dl (7-17) 09/22/23 07:50
Creatinine 0.4 mg/dL (0.6-1.0) L 09/22/23 07:50
eGFR > 60.00 09/22/23 07:50
Glucose 96 mg/dl (70-99) 09/22/23 07:50
Calcium 8.9 mg/dl (8.4-10.2) 09/22/23 07:50
Total Bilirubin 0.8 mg/dl (0.2-1.3) 09/14/23 07:41
AST 19 U/L (14-36) 09/14/23 07:41
ALT < 10 U/L (0-35) 09/14/23 07:41
Alkaline Phosphatase 62 U/L (38-126) 09/14/23 07:41
Total Protein 5.9 g/dl (6.3-8.2) L 09/14/23 07:41
Albumin 3.1 g/dl (3.5-5.0) L 09/14/23 07:41
Diagnostic Results
As per HPI.
Comorbidities / Impairment Group
Comorbidities:
leukopenia, thrombocytopenia,
Impairment Group:
Brain tumor, Left hemiparesis
Assessment / Plan
Plan
Assessment:
63 year old female with left chronic hemiparesis s/p brain tumor/resection/radiation, recent admission for persistent fevers. Has had functional decline from previous baseline due to prolonged hospitalization, persistent fevers, deconditioning and
bedrest.
PM&R PT/OT to increase independence with ADLs, improve mobility transfers, endurance, strength, community reintegration, decreased burden of care on .
Persistent fevers - ID has been following, feels related to viral syndrome but could be central fever with brain tumor recurrence. No antibiotics, all cultures have been negative. Recommended consistent tylenol usage.
Anaplastic astrocytoma s/p craniotomy and surgery with recurrence last year - follows outpatient oncology at [facility]
Left hemiparesis: Chronic - risk for falls and sliding out of chair/bed. Safety reinforced.
- Avoid using affected arm to help lift or pull patient as this will cause trauma to the shoulder.
Seizures: Continue Keppra monitor seizures, seizure precautions
Hyponatremia - improved now 135 after fluid restrictions and salt tabs.
Afib - On eliquis
HTN - Nadolol 20 daily
Left lower extremity edema: Consider TEDS as able.
Thrombocytopenia: Likely chemo related. Also leukopenia likely due to same. Follows with oncology as outpatient.
Psych: Psychology consult. Monitor mood, adjust medications as needed.
Skin: monitor for pressure sores/rashes/lesions.
Pain: acetaminophen as needed.
DVT Prophylaxis: On eliquis
Pulmonary: Incentive spirometry
Safety: Continue to reinforce assistance with all transfers.
Code Status: Full code
Dispo (date/plan/equipment needs): Home with family care. Social history reviewed.
Functional and Medical Goals: Modified Independent with ADL�s, ambulation, transfers
Summary
-
Things that must be addressed in Hospital prior to discharge:
1. Please continue PT/OT.
2. Blood pressure must be less than 180 systolic and 100 diastolic for 24 hours before being stable for transfer to SNF/acute rehab.
3. Please give blood pressure parameters.
4. Please comment on dvt chemoprophylaxis restrictions.
Discharge Destination: Will need additional rehabilitation prior to discharge home with . Needing increased assistance now, and likely could get back to previous level of function with short stay in acute rehabilitation to increase strength,
transfers, endurance, gait with therapy.
Summary of recommendations:
- Discharge Destination: Acute rehabilitation
Thank you for allowing me to care for your patient. Please contact me with any questions or concerns.
Data Reviewed
-
Labs: Labs Reviewed by me
Comments
-
This note was dictated using a voice recognition system. Please excuse any typographical errors from safety officer. If you believe there are any discrepancies, please notify our office.
[2023-09-22] MEDS: NON-FORMULARY ITEM 80 MG PO (20:08)
[2023-09-22] MEDS: ULTRAM 50 MG PO (20:12)
[2023-09-22 23:32] VITALS: BP 129/89
--- NOTE | 2023-09-23 03:34 | DOWNTIME ---
There was a [employer] Client Lokie Driver Downtime on 09/23/2023 from 0100 to 09/23/2023 at 0322. Downtime documentation of patient's care, including medication administrations, has been reconciled in the electronic record per guidelines. Refer to the
patient's paper chart under the miscellaneous tab to see printed paper medication records and downtime forms.
[2023-09-23 06:00] VITALS: BMI 38.4
[2023-09-23 06:25] LABS: % Basophils 0.4 % (0-2); % Eosinophils 3.5 % (0-6); % Immature Granulocytes 0.4 % (0-0.5); % Lymphocytes 20.6 % (20.5-51.1); % Monocytes 10.1 % (1.7-9.3); Absolute Eosinophils 0.1 10^3/uL (0-0.7); Absolute Lymphocytes 0.5 10^3/uL (1.2-3.4); Absolute Monocytes 0.2 10^3/uL (0.1-0.6); Absolute Neutrophils 1.5 10^3/uL (1.4-6.5); Hematocrit 35.1 % (37.0-47.0); Hemoglobin 11.4 g/dL (12.0-16.0); Mean Corp Hgb Conc. 32.5 g/dL (33.0-37.0); Mean Corpuscular Hgb 32.7 pg (27.0-31.0); Mean Corpuscular Volume 100.6 fL (81.0-99.0); Mean Platelet Volume 10.5 fL (7.4-10.4); Nucleated Red Blood Cells % 0 %; Platelet Count 56 10^3/uL (130-400); Red Blood Cell Count 3.49 10^6/uL (4.20-5.40); Red Cell Dist. Width 15.3 % (11.5-14.5)
[2023-09-23 06:32] LABS: White Blood Cell Count 2.3 10^3/uL (4.8-10.8)
[2023-09-23 06:40] LABS: Blood Urea Nitrogen 17 mg/dl (7-17); Carbon Dioxide 25 mmol/L (22-30); Chloride 104 mmol/L (98-107); Estimated Creatinine Clearance 122 ml/min; Glucose 94 mg/dl (70-99); Potassium 3.9 mmol/L (3.5-5.1); Sodium 138 mmol/L (135-145); eGFR > 60.00
--- NOTE | 2023-09-23 07:28 | W.PN.HOSP.TC ---
Today's Communication/Plan
-
Continue current management. Discharge planning in progress.
Assessment / Plan
Assessment / Plan
Physical exam:
General: Well Developed, Well Nourished and No Apparent Distress
HEENT: Normocephalic, Atraumatic and Moist Mucous Membranes
Respiratory: Clear to Auscultation; Negative Wheezes, Rales or Rhonchi
Cardiac: Regular Rhythm and S1/S2
GI: Soft, Nontender and Nondistended. Mild nonblanchable rash.
Musculoskeletal: No Clubbing, No Cyanosis and No Edema
Neuro: Awake, Alert and Oriented, generalized weakness and residual left-sided weakness.
Psych: Calm
A/P:
Febrile leukopenia/fever course has been trending down on peaks--> currently remains afebrile.
Fever unclear etiology, infectious(presumed viral) versus tumor fever versus other/ remains febrile off ABX xs 48hrs
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
Immunocompromised host
-CT of the head no new abnormalities
-COVID-19 and influenza negative/viral respiratory panel negative
-Urinalysis negative
-Blood cultures no growth so far
-With onset of diarrhea/ All stool cultures including C. difficile negative
-Chest x-ray unremarkable
-Hip pain hip x-ray unremarkable
- supportive care with IVF
- Empiric IV vancomycin and IV cefepime upon admission. ID consulted--> got single dose of cefazolin but then further refused by patient and family due to concerns over crossing blood brain barrier
-Follow-up cultures all remain negative including the most recent one done on 15 September
-Viral respiratory panel also all negative
-Will add tramadol as needed (she has taken this at home with success)
-With trending down of fever and stabilization of thrombocytopenia felt noninfectious etiology to fever and possible tumor fever discussed by Dr Pike with Dr. Carrero her oncologist and he is in favor of discharge planning and resumption of
Tagrisso
-Discussed with at bedside today on 09/22
-Acute rehab will accept
Hyponatremia, likely SIADH
-Sodium 127--> 138 today
-Nephrology consulted
-Urine sodium 221>> 177, urine osmolarity 776
-Fluid restriction she wants this liberalized placed on 60 ounces
-Salt tabs appreciate nephrology input
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
- f/u at [facility]
-Patient s/p craniotomy, chemoradiation with recurrent x 2, currently on Avastin and osimertinib -->Tagrisso currently on hold until cultures back. I put a call to her outpatient oncology, Dr Carrero [phone]. Dr Gilliland oncology fellow got back
to me and ok holding medication for now and he'll pass on information to Alise.
-� No longer on� dexamethasone
Chronic thrombocytopenia
- at baseline?
- f/u daily CBC
HX seizure disorder
- on HIGHBALLER levetiracetam 500 mg bid here.
Paroxysmal AF
- on Eliquis
-on nadolol
Essential HTN
- on HIGHBALLER Nadolol 20 daily
Obesity with a body mass index of 40
DVT Px: on Eliquis
Code: Full
Anticipated Discharge: Today
Subjective/Interval History
-
Date of Service: September 23, 2023
Patient with some generalized weakness. Feels cold in her head. Afebrile
Objective Data
-
Labs:
Laboratory Results
09/23/23
05:37
WBC 2.3 L*
Hgb 11.4 L
Hct 35.1 L
Plt Count 56 L
Sodium 138
Potassium 3.9
Chloride 104
Carbon Dioxide 25
BUN 17
Creatinine 0.4 L
Glucose 94
Calcium 9.0
Vital Signs:
Vital Signs
Temp Pulse Resp BP Pulse Ox
97.8 F 79 16 129/89 98
09/22/23 23:32 09/22/23 23:32 09/22/23 23:32 09/22/23 23:32 09/22/23 23:32
I&O
09/22/23 09/23/23 09/24/23
06:59 06:59 06:59
Intake Total 1380 / 1380 720 / 720
Output Total 250 / 250 500 / 500
Balance 1130 / 1130 220 / 220
Review of Systems
-
All other systems: Reviewed and negative
[2023-09-23 07:30] VITALS: BP 122/83
[2023-09-23] MEDS: DESENEX/MITRAZOL/ZEASORB 1 APPLIC TOPICAL ×2 (08:42→20:33)
[2023-09-23] MEDS: TYLENOL 650 MG PO ×3 (08:43→23:08)
[2023-09-23] MEDS: CORGARD 20 MG PO (08:43)
[2023-09-23] MEDS: SODIUM CHLORIDE 1 GRAM PO ×2 (08:44→20:32)
[2023-09-23] MEDS: ELIQUIS 5 MG PO (08:44)
[2023-09-23] MEDS: KEPPRA 500 MG PO ×2 (08:50→21:42)
[2023-09-23 15:35] VITALS: BP 135/65
[2023-09-23] MEDS: NON-FORMULARY ITEM 80 MG PO (20:32)
[2023-09-23] MEDS: ULTRAM 50 MG PO (21:42)
[2023-09-23 23:35] VITALS: BP 129/82
[2023-09-24 05:16] VITALS: BMI 38.5
[2023-09-24 08:21] VITALS: BP 130/79
--- NOTE | 2023-09-24 08:29 | W.PN.HOSP.TC ---
Today's Communication/Plan
-
Continue current management. Discharge planning in progress.
Assessment / Plan
Assessment / Plan
Physical exam:
General: Well Developed, Well Nourished and No Apparent Distress
HEENT: Normocephalic, Atraumatic and Moist Mucous Membranes
Respiratory: Clear to Auscultation; Negative Wheezes, Rales or Rhonchi
Cardiac: Regular Rhythm and S1/S2
GI: Soft, Nontender and Nondistended. Mild nonblanchable rash.
Musculoskeletal: No Clubbing, No Cyanosis and No Edema
Neuro: Awake, Alert and Oriented, generalized weakness and residual left-sided weakness.
Psych: Calm
A/P:
Febrile leukopenia/fever course has been trending down on peaks--> currently remains afebrile.
Fever unclear etiology, infectious(presumed viral) versus tumor fever versus other/ remains febrile off ABX xs 48hrs
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
Immunocompromised host
-CT of the head no new abnormalities
-COVID-19 and influenza negative/viral respiratory panel negative
-Urinalysis negative
-Blood cultures no growth so far
-With onset of diarrhea/ All stool cultures including C. difficile negative
-Chest x-ray unremarkable
-Hip pain hip x-ray unremarkable
- supportive care with IVF
- Empiric IV vancomycin and IV cefepime upon admission. ID consulted--> got single dose of cefazolin but then further refused by patient and family due to concerns over crossing blood brain barrier
-Follow-up cultures all remain negative including the most recent one done on 15 September
-Viral respiratory panel also all negative
-Will add tramadol as needed (she has taken this at home with success)
-With trending down of fever and stabilization of thrombocytopenia felt noninfectious etiology to fever and possible tumor fever discussed by Dr Pike with Dr. Carrero her oncologist and he is in favor of discharge planning and resumption of
Tagrisso
-Discussed with at bedside today on 09/23
-Acute rehab will accept--> waiting for case management for discharge disposition (auth insurance)
Hyponatremia, likely SIADH
-Sodium 127--> 138 last
-Nephrology consulted
-Urine sodium 221>> 177, urine osmolarity 776
-Fluid restriction she wants this liberalized placed on 60 ounces
-Salt tabs appreciate nephrology input
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
- f/u at [facility]
-Patient s/p craniotomy, chemoradiation with recurrent x 2, currently on Avastin and osimertinib -->Tagrisso currently on hold until cultures back. I put a call to her outpatient oncology, Dr Carrero [phone]. Dr Gilliland oncology fellow got back
to me and ok holding medication for now and he'll pass on information to Alise.
-� No longer on� dexamethasone
Chronic thrombocytopenia
- at baseline?
- f/u daily CBC
HX seizure disorder
- on OBSTETRICS/GYNECOLOGY NURSE levetiracetam 500 mg bid here.
Paroxysmal AF
- on Eliquis
-on nadolol
Essential HTN
- on OBSTETRICS/GYNECOLOGY NURSE Nadolol 20 daily
Obesity with a body mass index of 40
DVT Px: on Eliquis
Code: Full
Anticipated Discharge: Today
Subjective/Interval History
-
Date of Service: September 24, 2023
Patient seen and examined today. No new complaints. Afebrile
Objective Data
-
Vital Signs:
Vital Signs
Temp Pulse Resp BP Pulse Ox
97.8 F 71 18 130/79 96
09/24/23 08:21 09/24/23 08:21 09/24/23 08:21 09/24/23 08:21 09/24/23 08:21
I&O
09/23/23 09/24/23 09/25/23
06:59 06:59 06:59
Intake Total 720 / 720
Output Total 500 / 500 950 / 950
Balance 220 / 220 -950 / -950
--- NOTE | 2023-09-24 09:23 | CM ---
Addendum entered by Iris Negron 09/24/23 11:18:
CM received a message from the patient's nurse indicating their intent to appeal acute rehab denial
CM sent a TT to transplant case manager, Alexis Soto & the medical receptionist medical assistant. Dr. Grace Guerrero, provided phone number for P2P and await determination at this time
CM will also speak with the patient's spouse Lamin to inform he can appeal by calling the number on the back of the patient's insurance card.
PLAN; CM continuing to follow for d/c needs
Addendum entered by Iris Negron 09/24/23 10:54:
CM spoke with the patient and her spouse at bedside to inform of insurance denial and their right to appeal however they are declining that option. CM informed that the outcome would likely be the same and that SNF is always an option if going home
from the hospital is going to remain a safety concern
Per the patient's spouse, referrals to be sent to [facility] and after responses are received this scientific technical writer will contact the insurance company for authorization
CM to update clinical record as indicated
PLAN; d/c to SNF pending insurance auth. & bed availability
Original Note:
CM following re: d/c planning
Chart reviewed
Physiatry did meet with patient 09/21 and updated PT/OT notes dated 09/22 were sent via care port to [facility] at the request of the patient's spouse
[facility] is the only facility that was willing to accept patient, pending insurance authorization
CM submitted the clinical information for insurance auth and the request was then sent to the medical receptionist medical assistant
The determination came back from the medical receptionist medical assistant and the patient was denied for acute level of care
The opportunity was offered for a peer to peer to be called into [phone]
[facility] feels the member is more appropriate for SNF level of care and would provide an authorization if member is in agreement to go to SNF for rehab
CM will explain above to the patient and her spouse;in addition to offering the opportunity to appeal the decision by contacting the number on the back of insurance card
Disposition at this time is to be determined
CM will remain available to the patient and assist with continued d/c efforts as indicated
PLAN; CM following for needs
Case# [id number]
[2023-09-24] MEDS: CORGARD 20 MG PO (09:33)
[2023-09-24] MEDS: SODIUM CHLORIDE 1 GRAM PO ×2 (09:33→20:10)
[2023-09-24] MEDS: TYLENOL 650 MG PO ×2 (09:33→23:08)
[2023-09-24] MEDS: ELIQUIS 5 MG PO (09:33)
[2023-09-24] MEDS: KEPPRA 500 MG PO ×2 (09:33→21:45)
[2023-09-24] MEDS: DESENEX/MITRAZOL/ZEASORB 1 APPLIC TOPICAL ×2 (09:34→20:12)
--- NOTE | 2023-09-24 10:39 | W.PN.ID1 ---
Date of Service
Date of Service: September 24, 2023
Today's Communication
ID will sign off.
Assessment / Plan
# Fever resolved on round the clock acetaminophen
- No infectious etiology identified.
- Suspect viral syndrome vs tumor fever
- Continue Tylenol 650mg po q8h x at least 1-2 weeks
- Observe off abx.
# Leukopenia not neutropenic
# Chronic thrombocytopenia
# Brain ca with recurrence, on Avastin and osimertinib.
- Per patient, to avoid drugs that crosses blood-brain barrier to prevent metastasis, per her Oncologist.
Pt refusing antibiotics.
ID will sign off.
Chief Complaint
-: Fever
Subjective / Review of Systems
Feels well. Feels stronger. No more fever on Tylenol.
Vital Signs / Physical Exam
Vital Signs
Vital Signs
Temp Pulse Resp BP Pulse Ox
97.8 F 71 18 130/79 96
09/24/23 08:21 09/24/23 08:21 09/24/23 08:21 09/24/23 08:21 09/24/23 08:21
Physical Exam
Constitutional: No Acute Distress and Comfortable
Cardiovascular: Regular Rate and S1/S2
Pulmonary: Clear
Gastrointestinal: Soft, Non Tender and Non Distended
Neurological: Awake, Alert and AO x 3
Objective Data
Lab Data
Lab Results
09/23/23 05:37
09/23/23 05:37
Estimated Creat Clear 122 ml/min 09/23/23 05:37
Lactic Acid Cancelled 09/13/23 01:42
Total Bilirubin 0.8 mg/dl (0.2-1.3) 09/14/23 07:41
AST 19 U/L (14-36) 09/14/23 07:41
ALT < 10 U/L (0-35) 09/14/23 07:41
Alkaline Phosphatase 62 U/L (38-126) 09/14/23 07:41
Most recent labs reviewed.
Micro Results:
09/17/23 19:07 Blood Culture - Final
Blood/Venous No Growth - Final Report
09/17/23 19:08 Blood Culture - Final
Blood/Venous No Growth - Final Report
09/12/23 21:32 Blood Culture - Final
Blood/Venous No Growth - Final Report
09/12/23 21:32 Blood Culture - Final
Blood/Venous No Growth - Final Report
09/17/23 13:53 Influenza Type A (PCR) - Final
Nasalpharynx Not Detected
Influenza Type A (H1) (PCR) - Final
Not Detected
Influenza Type A (H3) (PCR) - Final
Not Detected
Influenza Type B (PCR) - Final
Not Detected
Resp Syncytial Virus Type A (PCR) - Final
Not Detected
Resp Syncytial Virus Type B (PCR) - Final
Not Detected
Adenovirus DNA (PCR) - Final
Not Detected
Human Metapneumovirus (PCR) - Final
Not Detected
Parainfluenza Virus Type 1 (PCR) - Final
Not Detected
Parainfluenza Virus Type 2 (PCR) - Final
Not Detected
Parainfluenza Virus Type 3 (PCR) - Final
Not Detected
Parainfluenza Virus Type 4 - Final
Not Detected
Rhinovirus (PCR) - Final
Not Detected
09/14/23 10:44 Salmonella/Shigella Culture - Final
Feces/Stool No Salmonella, Shigella, Aeromonas or Plesiomonas species
isolated.
Campylobacter Culture - Final
No Campylobacter species isolated.
Shiga Toxin Test - Final
No E. coli Shiga Toxin 1 or 2 detected.
09/14/23 10:44 C. difficile GDH Antigen & Toxins - Final
Feces/Stool Negative for toxigenic C.difficile
09/12/23 21:32 Influenza Types A & B ([facility]) - Final
Nasal Swab Negative for Influenza A & B, NAAT
Negative results must be combined with clinical observations
and patient history.
Nucleic Acid Amplification test (NAAT)performed on the
[employer] platform.
[2023-09-24 15:05] VITALS: BP 129/82
[2023-09-24] MEDS: TYLENOL PO (17:17)
[2023-09-24] MEDS: NON-FORMULARY ITEM 80 MG PO (20:09)
[2023-09-24] MEDS: ULTRAM 50 MG PO (22:06)
[2023-09-24 23:58] VITALS: BP 143/83
[2023-09-25 06:00] VITALS: BMI 38.5
[2023-09-25 07:43] VITALS: BP 121/70
[2023-09-25] MEDS: TYLENOL 650 MG PO (08:56)
[2023-09-25] MEDS: ELIQUIS 5 MG PO (08:56)
[2023-09-25] MEDS: SODIUM CHLORIDE 1 GRAM PO ×2 (08:56→20:02)
[2023-09-25] MEDS: CORGARD 20 MG PO (08:56)
[2023-09-25] MEDS: KEPPRA 500 MG PO ×2 (09:01→21:47)
--- NOTE | 2023-09-25 09:03 | W.PN.HOSP.TC ---
Today's Communication/Plan
-
Continue current management.
Assessment / Plan
Assessment / Plan
Physical exam:
General: Well Developed, Well Nourished and No Apparent Distress
HEENT: Normocephalic, Atraumatic and Moist Mucous Membranes
Respiratory: Clear to Auscultation; Negative Wheezes, Rales or Rhonchi
Cardiac: Regular Rhythm and S1/S2
GI: Soft, Nontender and Nondistended. Mild nonblanchable rash.
Musculoskeletal: No Clubbing, No Cyanosis and No Edema
Neuro: Awake, Alert and Oriented, generalized weakness and residual left-sided weakness.
Psych: Calm
A/P:
Febrile leukopenia/fever course has been trending down on peaks--> currently remains afebrile.
Fever unclear etiology, infectious(presumed viral) versus tumor fever versus other/ remains febrile off ABX xs 48hrs
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
Immunocompromised host
-CT of the head no new abnormalities
-COVID-19 and influenza negative/viral respiratory panel negative
-Urinalysis negative
-Blood cultures no growth so far
-With onset of diarrhea/ All stool cultures including C. difficile negative
-Chest x-ray unremarkable
-Hip pain hip x-ray unremarkable
- supportive care with IVF
- Empiric IV vancomycin and IV cefepime upon admission. ID consulted--> got single dose of cefazolin but then further refused by patient and family due to concerns over crossing blood brain barrier
-Follow-up cultures all remain negative including the most recent one done on 15 September
-Viral respiratory panel also all negative
-Will add tramadol as needed (she has taken this at home with success)
-With trending down of fever and stabilization of thrombocytopenia felt noninfectious etiology to fever and possible tumor fever discussed by Dr Pike with Dr. Carrero her oncologist and he is in favor of discharge planning and resumption of
Tagrisso
-Discussed with at bedside today on 09/24
-Acute rehab will accept--> waiting for case management for discharge disposition and apparently insurance did not accept acute rehab so appeal is in process and possible skilled rehab
Hyponatremia, likely SIADH
-Sodium 127--> 138 last
-Nephrology consulted
-Urine sodium 221>> 177, urine osmolarity 776
-Fluid restriction she wants this liberalized placed on 60 ounces
-Salt tabs appreciate nephrology input
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
- f/u at [facility]
-Patient s/p craniotomy, chemoradiation with recurrent x 2, currently on Avastin and osimertinib -->Tagrisso currently on hold until cultures back. I put a call to her outpatient oncology, Dr Carrero [phone]. Dr Gilliland oncology fellow got back
to me and ok holding medication for now and he'll pass on information to Alise.
-� No longer on� dexamethasone
Chronic thrombocytopenia
- at baseline?
- f/u daily CBC
HX seizure disorder
- on VP SALES levetiracetam 500 mg bid here.
Paroxysmal AF
- on Eliquis
-on nadolol
Essential HTN
- on VP SALES Nadolol 20 daily
Obesity with a body mass index of 40
DVT Px: on Eliquis
Code: Full
Anticipated Discharge: > 48 hours
Subjective/Interval History
-
Date of Service: September 25, 2023
Patient has any chest pain or shortness of breath. Afebrile
Objective Data
-
Vital Signs:
Vital Signs
Temp Pulse Resp BP Pulse Ox
97.8 F 72 16 121/70 99
09/25/23 07:43 09/25/23 07:43 09/25/23 07:43 09/25/23 07:43 09/25/23 07:43
I&O
09/24/23 09/25/23 09/26/23
06:59 06:59 06:59
Intake Total 960 / 960
Output Total 950 / 950 800 / 800
Balance -950 / -950 160 / 160
[2023-09-25] MEDS: DESENEX/MITRAZOL/ZEASORB 1 APPLIC TOPICAL ×2 (09:04→20:00)
--- NOTE | 2023-09-25 12:57 | CM ---
CM following re: d/c planning
Chart reviewed
Pt stable for d/c pending bed availability at SNF
CM placed additional referrals via care port and awaiting a response to initiate insurance auth
[facility] nor [facility] had any bed availability and don't anticipate any beds anytime soon
Once SNF is identified; CM to contact Sharri at [facility] [phone] to start the auth process
CM notified the patient and her spouse who's visiting bedside
CM will continue to actively work on placing patient in a SNF
Disposition efforts are ongoing
PLAN; d/c to SNF pending bed availability & insurance auth.
[2023-09-25] MEDS: TYLENOL PO (15:31)
[2023-09-25 15:45] VITALS: BP 121/72
[2023-09-25] MEDS: NON-FORMULARY ITEM 80 MG PO (20:01)
[2023-09-25 23:55] VITALS: BP 125/88
[2023-09-26] MEDS: TYLENOL PO ×3 (00:46→23:25)
[2023-09-26 06:00] VITALS: BMI 38.5
[2023-09-26 07:26] LABS: % Basophils 0.4 % (0-2); % Eosinophils 2.2 % (0-6); % Immature Granulocytes 0.4 % (0-0.5); % Lymphocytes 18.1 % (20.5-51.1); % Monocytes 11.6 % (1.7-9.3); % Neutrophils 67.3 % (42.2-75.2); Absolute Eosinophils 0.1 10^3/uL (0-0.7); Absolute Lymphocytes 0.5 10^3/uL (1.2-3.4); Absolute Monocytes 0.3 10^3/uL (0.1-0.6); Absolute Neutrophils 1.9 10^3/uL (1.4-6.5); Hematocrit 34.4 % (37.0-47.0); Hemoglobin 11.3 g/dL (12.0-16.0); Mean Corp Hgb Conc. 32.8 g/dL (33.0-37.0); Mean Corpuscular Hgb 33.1 pg (27.0-31.0); Mean Corpuscular Volume 100.9 fL (81.0-99.0); Mean Platelet Volume 10.7 fL (7.4-10.4); Nucleated Red Blood Cells % 0 %; Platelet Count 46 10^3/uL (130-400); Red Blood Cell Count 3.41 10^6/uL (4.20-5.40); Red Cell Dist. Width 15.4 % (11.5-14.5); White Blood Cell Count 2.8 10^3/uL (4.8-10.8)
[2023-09-26 07:35] VITALS: BP 114/71
[2023-09-26 07:50] LABS: Blood Urea Nitrogen 14 mg/dl (7-17); Calcium 8.9 mg/dl (8.4-10.2); Carbon Dioxide 26 mmol/L (22-30); Chloride 102 mmol/L (98-107); Estimated Creatinine Clearance 122 ml/min; Glucose 94 mg/dl (70-99); Potassium 3.8 mmol/L (3.5-5.1); Sodium 135 mmol/L (135-145); eGFR > 60.00
--- NOTE | 2023-09-26 08:15 | W.PN.HOSP.TC ---
Today's Communication/Plan
-
Continue current management. Discharge planning in progress.
Assessment / Plan
Assessment / Plan
Physical exam:
General: Well Developed, Well Nourished and No Apparent Distress
HEENT: Normocephalic, Atraumatic and Moist Mucous Membranes
Respiratory: Clear to Auscultation; Negative Wheezes, Rales or Rhonchi
Cardiac: Regular Rhythm and S1/S2
GI: Soft, Nontender and Nondistended. Mild nonblanchable rash.
Musculoskeletal: No Clubbing, No Cyanosis and No Edema
Neuro: Awake, Alert and Oriented, generalized weakness and residual left-sided weakness.
Psych: Calm
A/P:
Febrile leukopenia/fever course has been trending down on peaks--> currently remains afebrile.
Fever unclear etiology, infectious(presumed viral) versus tumor fever versus other/ remains febrile off ABX xs 48hrs
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
Immunocompromised host
-CT of the head no new abnormalities
-COVID-19 and influenza negative/viral respiratory panel negative
-Urinalysis negative
-Blood cultures no growth so far
-With onset of diarrhea/ All stool cultures including C. difficile negative
-Chest x-ray unremarkable
-Hip pain hip x-ray unremarkable
- supportive care with IVF
- Empiric IV vancomycin and IV cefepime upon admission. ID consulted--> got single dose of cefazolin but then further refused by patient and family due to concerns over crossing blood brain barrier
-Follow-up cultures all remain negative including the most recent one done on 15 September
-Viral respiratory panel also all negative
-Will add tramadol as needed (she has taken this at home with success)
-With trending down of fever and stabilization of thrombocytopenia felt noninfectious etiology to fever and possible tumor fever; discussed by Dr Pike with Dr. Carrero her oncologist and he is in favor of discharge planning and resumption of
Tagrisso
-Discussed with at bedside on 09/25
-Acute rehab will accept--> waiting for case management for discharge disposition and apparently insurance did not accept acute rehab so appeal is in process and possible skilled rehab.
Hyponatremia, likely SIADH
-Sodium 127--> 135 today
-Nephrology consulted
-Urine sodium 221>> 177, urine osmolarity 776
-Fluid restriction she wants this liberalized placed on 60 ounces
-Salt tabs appreciate nephrology input
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
- f/u at [facility]
-Patient s/p craniotomy, chemoradiation with recurrent x 2, currently on Avastin and osimertinib -->Tagrisso currently on hold until cultures back. I put a call to her outpatient oncology, Dr Carrero [phone]. Dr Gilliland oncology fellow got back
to me and ok holding medication for now and he'll pass on information to Alise.
-� No longer on� dexamethasone
Chronic thrombocytopenia
- at baseline?
- f/u every other day CBC
-Platelets 46 today and no signs of bleeding; will recheck in 48 hours or sooner if any signs of bleeding.
HX seizure disorder
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
Paroxysmal AF
- on Eliquis
-on nadolol
Essential HTN
- on SWIMMING POOL PLASTERER HELPER Nadolol 20 daily
Obesity with a body mass index of 40
DVT Px: on Eliquis
Code: Full
Anticipated Discharge: > 48 hours
Subjective/Interval History
-
Date of Service: September 26, 2023
Patient seen and examined. No new complaints. No new signs of bleeding. Afebrile
Objective Data
-
Labs:
Laboratory Results
09/26/23
07:08
WBC 2.8 L
Hgb 11.3 L
Hct 34.4 L
Plt Count 46 L
Sodium 135
Potassium 3.8
Chloride 102
Carbon Dioxide 26
BUN 14
Creatinine 0.4 L
Glucose 94
Calcium 8.9
Vital Signs:
Vital Signs
Temp Pulse Resp BP Pulse Ox
98.2 F 79 18 125/88 96
09/25/23 23:55 09/25/23 23:55 09/25/23 23:55 09/25/23 23:55 09/25/23 23:55
I&O
09/25/23 09/26/23 09/27/23
06:59 06:59 06:59
Intake Total 960 / 960 930 / 930 120 / 120
Output Total 800 / 800 500 / 500 250 / 250
Balance 160 / 160 430 / 430 -130 / -130
[2023-09-26] MEDS: KEPPRA 500 MG PO ×2 (10:04→21:05)
[2023-09-26] MEDS: CORGARD 20 MG PO (10:04)
[2023-09-26] MEDS: SODIUM CHLORIDE 1 GRAM PO ×2 (10:04→20:29)
[2023-09-26] MEDS: ELIQUIS 5 MG PO (10:04)
[2023-09-26] MEDS: TYLENOL 650 MG PO (10:06)
[2023-09-26] MEDS: DESENEX/MITRAZOL/ZEASORB 1 APPLIC TOPICAL ×2 (10:08→20:29)
--- NOTE | 2023-09-26 10:08 | PTCARENOTE ---
Patient OOb with max assist x3 and ansley walker.. Patient states, 'I can stand and pivot with the ansley walker.' Patient was able to stand with the help of 3 staff for less than 5 seconds. I took multiple attempt to stand patient to get get into the
chair. Patient tolerated sitting in chair for 4 hours.
[2023-09-26 15:00] VITALS: BP 129/82
[2023-09-26] MEDS: NON-FORMULARY ITEM 1 MG PO (20:29)
[2023-09-26 23:55] VITALS: BP 125/76
[2023-09-27 06:00] VITALS: BMI 38.8
[2023-09-27 07:20] VITALS: BP 133/87
[2023-09-27] MEDS: CORGARD 20 MG PO (08:13)
[2023-09-27] MEDS: SODIUM CHLORIDE 1 GRAM PO ×2 (08:13→20:28)
[2023-09-27] MEDS: ELIQUIS 5 MG PO (08:13)
[2023-09-27] MEDS: TYLENOL PO ×2 (08:13→15:27)
[2023-09-27] MEDS: DESENEX/MITRAZOL/ZEASORB 1 APPLIC TOPICAL ×2 (08:14→20:33)
[2023-09-27] MEDS: IMODIUM 2 MG PO (08:15)
--- NOTE | 2023-09-27 08:27 | W.PN.HOSP.TC ---
Today's Communication/Plan
-
IVF. Imodium if C Diff negative. PT OT reeval.
Assessment / Plan
Assessment / Plan
Physical exam:
General: Well Developed, Well Nourished and No Apparent Distress
HEENT: Normocephalic, Atraumatic and Moist Mucous Membranes
Respiratory: Clear to Auscultation; Negative Wheezes, Rales or Rhonchi
Cardiac: Regular Rhythm and S1/S2
GI: Soft, Nontender and Nondistended. Mild nonblanchable rash.
Musculoskeletal: No Clubbing, No Cyanosis and No Edema
Neuro: Awake, Alert and Oriented, generalized weakness and residual left-sided weakness.
Psych: Calm
A/P:
Febrile leukopenia/fever course has been trending down on peaks--> currently remains afebrile.
Fever unclear etiology, infectious(presumed viral) versus tumor fever versus other/ remains febrile off ABX xs 48hrs
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
Immunocompromised host
-CT of the head no new abnormalities
-COVID-19 and influenza negative/viral respiratory panel negative
-Urinalysis negative
-Blood cultures no growth so far
-With onset of diarrhea/ All stool cultures including C. difficile negative
-Chest x-ray unremarkable
-Hip pain hip x-ray unremarkable
- supportive care with IVF
- Empiric IV vancomycin and IV cefepime upon admission. ID consulted--> got single dose of cefazolin but then further refused by patient and family due to concerns over crossing blood brain barrier
-Follow-up cultures all remain negative including the most recent one done on 15 September
-Viral respiratory panel also all negative
-Will add tramadol as needed (she has taken this at home with success)
-With trending down of fever and stabilization of thrombocytopenia felt noninfectious etiology to fever and possible tumor fever; discussed by Dr Pike with Dr. Carrero her oncologist and he is in favor of discharge planning and resumption of
Tagrisso
-Discussed with today at bedside on 09/26
-Acute rehab would accept but denied by insurance--> waiting for case management for discharge disposition. is open to skilled rehab now so will reevaluate in am.
Diarrhea
-appears Tagrisso related but r/o infectious etiology
-check c diff and stool cx
-IVF for 1 liter today
-If C Diff negative would start Imodium.
Hyponatremia, likely SIADH
-Sodium 127--> 135 today
-Nephrology consulted
-Urine sodium 221>> 177, urine osmolarity 776
-Fluid restriction she wants this liberalized placed on 60 ounces
-Salt tabs appreciate nephrology input
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
- f/u at [facility]
-Patient s/p craniotomy, chemoradiation with recurrent x 2, currently on Avastin and osimertinib -->Tagrisso currently on hold until cultures back. I put a call to her outpatient oncology, Dr Carrero [phone]. Dr Gilliland oncology fellow got back
to me and ok holding medication for now and he'll pass on information to Alise.
-� No longer on� dexamethasone
Chronic thrombocytopenia
- at baseline?
- f/u every other day CBC
-Platelets 46 today and no signs of bleeding; will recheck in 48 hours or sooner if any signs of bleeding.
HX seizure disorder
- on CUPOLA TAPPER levetiracetam 500 mg bid here.
Paroxysmal AF
- on Eliquis
-on nadolol
Essential HTN
- on CUPOLA TAPPER Nadolol 20 daily
Obesity with a body mass index of 40
DVT Px: on Eliquis
Code: Full
Anticipated Discharge: 24 - 48 hours
Subjective/Interval History
-
Date of Service: September 27, 2023
Patient feels weaker in general today. She has decreased appetite and hardly ate anything yesterday. Today she is having diarrhea about 3-5 x. No nausea or vomiting. No abdominal pain. No epistaxis, no melena, no hematemesis. Remains afebrile. No cp
or sob.
Objective Data
-
Vital Signs:
Vital Signs
Temp Pulse Resp BP Pulse Ox
97.9 F 78 18 125/76 94
09/26/23 23:55 09/26/23 23:55 09/26/23 23:55 09/26/23 23:55 09/27/23 08:20
I&O
09/26/23 09/27/23 09/28/23
06:59 06:59 06:59
Intake Total 930 / 930 960 / 960
Output Total 500 / 500 350 / 350
Balance 430 / 430 610 / 610
Review of Systems
-
All other systems: Reviewed and negative
[2023-09-27] MEDS: KEPPRA 500 MG PO ×2 (10:28→21:49)
[2023-09-27] MEDS: NSS 1000 IV (11:52)
[2023-09-27 15:15] VITALS: BP 128/79
[2023-09-27] MEDS: NON-FORMULARY ITEM 80 MG PO (20:29)
[2023-09-27 23:29] VITALS: BP 137/78
[2023-09-28] MEDS: TYLENOL PO (00:16)
[2023-09-28] MEDS: IMODIUM 2 MG PO ×2 (01:23→05:50)
[2023-09-28 06:00] VITALS: BMI 37.8
--- NOTE | 2023-09-28 07:45 | PTCARENOTE ---
Rectal trumpet placed without difficulty d/t recent large amts of diarrhea; pt shyann well; will continue to monitor.
[2023-09-28] MEDS: TYLENOL 650 MG PO ×2 (08:30→15:45)
[2023-09-28 08:36] VITALS: BP 122/81
[2023-09-28 09:13] LABS: % Basophils 0.3 % (0-2); % Eosinophils 3.2 % (0-6); % Immature Granulocytes 0.3 % (0-0.5); % Lymphocytes 16.3 % (20.5-51.1); % Monocytes 10.3 % (1.7-9.3); % Neutrophils 69.6 % (42.2-75.2); Absolute Eosinophils 0.1 10^3/uL (0-0.7); Absolute Lymphocytes 0.5 10^3/uL (1.2-3.4); Absolute Monocytes 0.3 10^3/uL (0.1-0.6); Absolute Neutrophils 2.2 10^3/uL (1.4-6.5); Hematocrit 36.7 % (37.0-47.0); Hemoglobin 12.8 g/dL (12.0-16.0); Mean Corp Hgb Conc. 34.9 g/dL (33.0-37.0); Mean Corpuscular Hgb 33.6 pg (27.0-31.0); Mean Corpuscular Volume 96.3 fL (81.0-99.0); Mean Platelet Volume 11.8 fL (7.4-10.4); Nucleated Red Blood Cells % 0 %; Platelet Count 50 10^3/uL (130-400); Red Blood Cell Count 3.81 10^6/uL (4.20-5.40); Red Cell Dist. Width 15.7 % (11.5-14.5); White Blood Cell Count 3.1 10^3/uL (4.8-10.8)
[2023-09-28] MEDS: ELIQUIS 5 MG PO (09:42)
[2023-09-28] MEDS: SODIUM CHLORIDE 1 GRAM PO ×2 (09:42→20:28)
[2023-09-28] MEDS: NSS 1000 IV (09:42)
[2023-09-28] MEDS: DESENEX/MITRAZOL/ZEASORB 1 APPLIC TOPICAL ×2 (09:43→20:29)
[2023-09-28] MEDS: CORGARD 20 MG PO (09:43)
[2023-09-28] MEDS: KEPPRA 500 MG PO ×2 (09:43→22:48)
[2023-09-28] MEDS: ULTRAM 50 MG PO (09:57)
[2023-09-28 11:21] LABS: Blood Urea Nitrogen 14 mg/dl (7-17); Calcium 9.1 mg/dl (8.4-10.2); Carbon Dioxide 22 mmol/L (22-30); Chloride 106 mmol/L (98-107); Estimated Creatinine Clearance 121 ml/min; Glucose 97 mg/dl (70-99); Potassium 4.1 mmol/L (3.5-5.1); Sodium 133 mmol/L (135-145); eGFR > 60.00
[2023-09-28 11:36] VITALS: BMI 37.8
--- NOTE | 2023-09-28 12:20 | W.PN.HOSP.TC ---
Today's Communication/Plan
-
If diarrhea can relent full pursue a discharge plan to home with PT after discussion with patient and spouse
Assessment / Plan
Assessment / Plan
Physical exam:
General: Well Developed, Well Nourished and No Apparent Distress
HEENT: Normocephalic, Atraumatic and Moist Mucous Membranes
Respiratory: Clear to Auscultation; Negative Wheezes, Rales or Rhonchi
Cardiac: Regular Rhythm and S1/S2
GI: Soft, Nontender and Nondistended. Mild nonblanchable rash.
Musculoskeletal: No Clubbing, No Cyanosis and No Edema
Neuro: Awake, Alert and Oriented, generalized weakness and residual left-sided weakness.
Psych: Calm
A/P:
Febrile leukopenia/fever course has been trending down on peaks--> currently remains afebrile.
Fever unclear etiology, infectious(presumed viral) versus tumor fever versus other/ remains febrile off ABX xs 48hrs
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
Immunocompromised host
-CT of the head no new abnormalities
-COVID-19 and influenza negative/viral respiratory panel negative
-Urinalysis negative
-Blood cultures no growth so far
-With onset of diarrhea/ All stool cultures including C. difficile negative
-Chest x-ray unremarkable
-Hip pain hip x-ray unremarkable
- supportive care with IVF
- Empiric IV vancomycin and IV cefepime upon admission. ID consulted--> got single dose of cefazolin but then further refused by patient and family due to concerns over crossing blood brain barrier
-Follow-up cultures all remain negative including the most recent one done on 15 September
-Viral respiratory panel also all negative
-Will add tramadol as needed (she has taken this at home with success)
-With trending down of fever and stabilization of thrombocytopenia felt noninfectious etiology to fever and possible tumor fever; discussed by Dr Pike with Dr. Carrero her oncologist and he is in favor of discharge planning and resumption of
Tagrisso
-Discussed with today at bedside on with continuation of diarrhea will discontinue Tagrisso again at the request of patient and spouse.
-Acute rehab would accept but denied by insurance--> waiting for case management for discharge disposition. is open to skilled rehab now so will reevaluate in am.
Diarrhea
-appears Tagrisso related but r/o infectious etiology
-check c diff and stool cx
-IVF for 1 liter today
-If C Diff negative would start Imodium.
Hyponatremia, likely SIADH
-Sodium 127--> 135 today
-Nephrology consulted
-Urine sodium 221>> 177, urine osmolarity 776
-Fluid restriction she wants this liberalized placed on 60 ounces
-Salt tabs appreciate nephrology input
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
- f/u at [facility]
-Patient s/p craniotomy, chemoradiation with recurrent x 2, currently on Avastin and osimertinib -->Tagrisso currently on hold until cultures back. I put a call to her outpatient oncology, Dr Carrero [phone]. Dr Gilliland oncology fellow got back
to me and ok holding medication for now and he'll pass on information to Alise.
-� No longer on� dexamethasone
Chronic thrombocytopenia
- at baseline?
- f/u every other day CBC
-Platelets 46 today and no signs of bleeding; will recheck in 48 hours or sooner if any signs of bleeding.
HX seizure disorder
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
Paroxysmal AF
- on Eliquis
-on nadolol
Essential HTN
- on REACH TRUCK OPERATOR Nadolol 20 daily
Obesity with a body mass index of 40
DVT Px: on Eliquis
Code: Full
Anticipated Discharge: Within 24 hours
Subjective/Interval History
-
Date of Service: September 28, 2023
Diarrhea continues without significant abdominal discomfort but attributed to her immunotherapy
Objective Data
-
Labs:
Laboratory Results
09/28/23 09/28/23
08:56 10:40
WBC 3.1 L
Hgb 12.8
Hct 36.7 L
Plt Count 50 L
Sodium Cancelled 133 L
Potassium Cancelled 4.1
Chloride Cancelled 106
Carbon Dioxide Cancelled 22
BUN Cancelled 14
Creatinine Cancelled 0.4 L
Glucose Cancelled 97
Calcium Cancelled 9.1
Vital Signs:
Vital Signs
Temp Pulse Resp BP Pulse Ox
98.1 F 68 18 122/81 96
09/28/23 08:36 09/28/23 08:36 09/28/23 08:36 09/28/23 08:36 09/28/23 09:36
I&O
09/27/23 09/28/23 09/29/23
06:59 06:59 06:59
Intake Total 960 / 960 960 / 960
Output Total 350 / 350 850 / 850
Balance 610 / 610 110 / 110
Review of Systems
-
History Source: Patient
Constitutional: Reports No Symptoms
EENT: Reports No Symptoms Reported
Respiratory: Reports No Symptoms
Cardiac: Reports No Symptoms
Abdomen/GI: Reports Diarrhea
Physical Exam
-
General: No Apparent Distress
HEENT: Normocephalic
Respiratory: Clear to Auscultation
Cardiac: Regular Rhythm
GI: Soft and Nontender
Musculoskeletal: No Edema
Neuro: Awake, Alert and Oriented
Data Reviewed
-
Total Time Spent with Patient (in minutes): 45
Labs: Labs Reviewed by me (White count 3.1/platelets 50,000/sodium stable 133 potassium 4.1)
[2023-09-28 14:08] VITALS: BP 107/75; PULSE 81; O2SAT 100
[2023-09-28 14:09] VITALS: BP 107/75; PULSE 77; O2SAT 100
--- NOTE | 2023-09-28 14:42 | CM ---
CM reviewed chart and ADC tomorrow pending medical status
Bedside meeting with pt and spouse
Acute rehab denied by insurance last week- denial upheld during P2P
Family has filed an appeal and it is pending
Pt denied at [facility]
VMs left for other admissions and referrals pending at [facility], [facility]
Spouse notes he is not pleased that acute was denied
Concerned the incorrect documentation was provided to insurance by staff
Record request form and Risk info provided to spouse
CM encouraged additional SNF referrals
Broad net sent to top rated facilities per spouse request
At this point, if a suitable rehab cannot be identified, spouse plans to take pt home
Pt will need hospital bed and pt requesting bariatric and fully electric for comfort
Aware of private pay costs and no insurance coverage
Private duty list also provided
CM spoke with 8 DME providers- [facility] ([phone]) only provider will mark bed availability at this time ($275/monthly rental)
Pt and spouse in agreement with cost- contact info provided for spouse to order and provide payment
[facility] referral sent to [facility] via [facility]
Spouse will transport with handicap accessible vehicle
Aware BLS available if needed
Discharge Disposition- home with [facility] and new hospital bed vs SNF)
[2023-09-28 15:53] VITALS: BP 132/80
--- NOTE | 2023-09-28 15:56 | PTCARENOTE ---
Pt AAO x3, moves Rt arm/leg slowly; Lt leg weak; Lt arm without movement/wears forearm splint. Optune device for head currently off- maintenance of device being done by pt's . OOB to chair with PT/ansley-walker; shyann well. VSS. On room air-
pulse ox 100%, no SOB noted. Abd obese, soft, shyann PO. Rectal tube in place- no diarrhea noted since very early in shift. 1800 ml fl restriction maintained. Incont urine. Resting in chair at present. Will continue to monitor.
--- NOTE | 2023-09-28 16:52 | PTCARENOTE ---
Rectal tube dc'd- patent small amts soft brown stool. Purewick replaced per pt/ insistence; pt is incont urine, states she cannot turn/ sit on bedpan d/t hip pain; cannot get out of bed in time to use BSC; needs assistance of 2-3 peopled/due
to lt sided weakness. Instructed pt/ that if diarrhea resumes; Purewick will be removed. Will monitor output
[2023-09-28 23:33] VITALS: BP 123/73
[2023-09-29] MEDS: TYLENOL PO ×3 (01:04→17:31)
[2023-09-29 06:00] VITALS: BMI 37.7
[2023-09-29 06:05] LABS: Hematocrit 39.2 % (37.0-47.0); Hemoglobin 12.9 g/dL (12.0-16.0); Mean Corp Hgb Conc. 32.9 g/dL (33.0-37.0); Mean Corpuscular Hgb 33.2 pg (27.0-31.0); Mean Platelet Volume 10.6 fL (7.4-10.4); Platelet Count 53 10^3/uL (130-400); Red Blood Cell Count 3.88 10^6/uL (4.20-5.40); Red Cell Dist. Width 15.7 % (11.5-14.5); White Blood Cell Count 3.3 10^3/uL (4.8-10.8)
[2023-09-29 07:35] VITALS: BP 120/80
[2023-09-29] MEDS: CORGARD 20 MG PO (08:53)
[2023-09-29] MEDS: SODIUM CHLORIDE 1 GRAM PO ×2 (08:53→22:16)
[2023-09-29] MEDS: ELIQUIS 5 MG PO (08:53)
[2023-09-29] MEDS: DESENEX/MITRAZOL/ZEASORB 1 APPLIC TOPICAL ×2 (08:56→22:16)
[2023-09-29] MEDS: KEPPRA 500 MG PO ×2 (09:00→22:16)
--- NOTE | 2023-09-29 10:32 | W.PN.HOSP.TC ---
Today's Communication/Plan
-
Remains a 3 person assist for any transfers from bed
Would benefit from rehab course
Will speak to case management in regards to attempt to try and place in pulmonary rehab
Assessment / Plan
Assessment / Plan
Physical exam:
General: Well Developed, Well Nourished and No Apparent Distress
HEENT: Normocephalic, Atraumatic and Moist Mucous Membranes
Respiratory: Clear to Auscultation; Negative Wheezes, Rales or Rhonchi
Cardiac: Regular Rhythm and S1/S2
GI: Soft, Nontender and Nondistended. Mild nonblanchable rash.
Musculoskeletal: No Clubbing, No Cyanosis and No Edema
Neuro: Awake, Alert and Oriented, generalized weakness and residual left-sided weakness.
Psych: Calm
A/P:
Febrile leukopenia/fever course has been trending down on peaks--> currently remains afebrile.
Fever unclear etiology, infectious(presumed viral) versus tumor fever versus other/ remains febrile off ABX xs 48hrs
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
Immunocompromised host
-CT of the head no new abnormalities
-COVID-19 and influenza negative/viral respiratory panel negative
-Urinalysis negative
-Blood cultures no growth so far
-With onset of diarrhea/ All stool cultures including C. difficile negative
-Chest x-ray unremarkable
-Hip pain hip x-ray unremarkable
- supportive care with IVF
- Empiric IV vancomycin and IV cefepime upon admission. ID consulted--> got single dose of cefazolin but then further refused by patient and family due to concerns over crossing blood brain barrier
-Follow-up cultures all remain negative including the most recent one done on 15 September
-Viral respiratory panel also all negative
-Will add tramadol as needed (she has taken this at home with success)
-With trending down of fever and stabilization of thrombocytopenia felt noninfectious etiology to fever and possible tumor fever; discussed by Dr Pike with Dr. Carrero her oncologist and he is in favor of discharge planning and resumption of
Tagrisso
-Discussed with today at bedside on with continuation of diarrhea will discontinue Tagrisso again at the request of patient and spouse.
-Acute rehab would accept but denied by insurance--> waiting for case management for discharge disposition. is open to skilled rehab now so will reevaluate in am.
Diarrhea
-appears Tagrisso related as have ruled out infectious etiology
-check c diff and stool cx was negative
-If C Diff negative would start Imodium.
Hyponatremia, likely SIADH
-Sodium 127--> 135 today
-Nephrology consulted
-Urine sodium 221>> 177, urine osmolarity 776
-Fluid restriction she wants this liberalized placed on 60 ounces
-Salt tabs appreciate nephrology input
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
- f/u at [facility]
-Patient s/p craniotomy, chemoradiation with recurrent x 2, currently on Avastin and osimertinib -->Tagrisso currently on hold until cultures back. I put a call to her outpatient oncology, Dr Carrero [phone]. Dr Gilliland oncology fellow got back
to me and ok holding medication for now and he'll pass on information to Alise.
-� No longer on� dexamethasone
Chronic thrombocytopenia
- at baseline?
- f/u every other day CBC
-Platelets 46 today and no signs of bleeding; will recheck in 48 hours or sooner if any signs of bleeding.
HX seizure disorder
- on [employer] levetiracetam 500 mg bid here.
Paroxysmal AF
- on Eliquis
-on nadolol
Essential HTN
- on [employer] Nadolol 20 daily
Obesity with a body mass index of 40
DVT Px: on Eliquis
Code: Full
Anticipated Discharge: Within 24 hours
Subjective/Interval History
-
Date of Service: September 29, 2023
No further diarrheal feels well no chills or fever
Objective Data
-
Labs:
Laboratory Results
09/29/23
05:52
WBC 3.3 L
Hgb 12.9
Hct 39.2
Plt Count 53 L
Vital Signs:
Vital Signs
Temp Pulse Resp BP Pulse Ox
98 F 77 20 120/80 97
09/29/23 07:35 09/29/23 07:35 09/29/23 07:35 09/29/23 07:35 09/29/23 07:35
I&O
09/28/23 09/29/23 09/30/23
06:59 06:59 06:59
Intake Total 960 / 960 1570 / 1570
Output Total 850 / 850 200 / 200
Balance 110 / 110 1370 / 1370
Review of Systems
-
All other systems: Not reviewed unless documented
Physical Exam
-
General: No Apparent Distress
HEENT: Normocephalic
Respiratory: Clear to Auscultation
Cardiac: Regular Rhythm
Musculoskeletal: No Edema
Psych: Calm
Data Reviewed
-
Total Time Spent with Patient (in minutes): 56
Labs: Labs Reviewed by me (White count stable platelets stable hemoglobin stable)
[2023-09-29] MEDS: TYLENOL 650 MG PO (10:58)
[2023-09-29] MEDS: ULTRAM 50 MG PO (13:55)
[2023-09-29 15:17] VITALS: BP 122/78
--- NOTE | 2023-09-29 15:39 | PTCARENOTE ---
Pt moving to another room due to her roommate being on precautions for MRSA
--- NOTE | 2023-09-29 15:40 | CM ---
Addendum entered by Imelda Bone 09/29/23 15:45:
Correction- BLS # [id number]
Original Note:
CM reviewed pt with Dr. Moira perez medically ready for dc
Rehab continues to be recommended
Bedside meeting with pt and spouse
Pt denied at [facility]
Only accepting SNF is [facility]
Pt will be required to bring specialty meds and pt will be allowed outpt testing appts and infusion appt on 10/08
Pt and spouse in agreement with rehab at [facility]
CM provided spouse with further DME company info for specialty hospital beds as requested
SNF ad BLS auth obtained through Sharri at [facility] [phone]
Plan discharge to [facility] via ambulance tomorrow
SNF # [id number] level I
6 days 09/29-10/04 (NRD) [phone] (p)
[facility] Acute Care# [id number] [address], 09/29-10/01
Discharge Disposition- tomorrow to [facility] via BLS
[2023-09-29 23:00] VITALS: BP 112/77
[2023-09-30 07:25] VITALS: BP 129/77
[2023-09-30] MEDS: ELIQUIS 5 MG PO (08:13)
[2023-09-30] MEDS: CORGARD 20 MG PO (08:13)
[2023-09-30] MEDS: SODIUM CHLORIDE 1 GRAM PO (08:13)
[2023-09-30] MEDS: TYLENOL PO ×2 (08:14)
[2023-09-30] MEDS: DESENEX/MITRAZOL/ZEASORB 1 APPLIC TOPICAL (08:14)
[2023-09-30] MEDS: FLUSH (NSS) 1 FLUSH IV (08:18)
--- NOTE | 2023-09-30 09:18 | CM ---
Addendum entered by Ailyn Martinez RN 09/30/23 09:23:
Ambulance auth is [facility] Acute Care# [id number] [address], 09/29-10/01.
Original Note:
[facility] # [id number] level I for 6 days 09/29-10/04 (NRD) [phone] . Spoke with Melanie at [place] she accepted pt today.
[facility] Acute Care# [id number] [address], 09/29-10/01.
Will offer transportation option to set up ambulance.
Medical nec form completed.
[facility]
report [phone]
fax [phone]
PLAN - To [place]
--- NOTE | 2023-09-30 09:25 | CM ---
Addendum entered by Ailyn Martinez RN 09/30/23 10:39:
Auth obtained for ambulance pt max assist of 2 to 3. agreed to ambulance if covered. Spoke with Holger from Acute Care pt is max assist of 2-3 . notified .
Original Note:
Auth for [facility] # [id number] level I for 6 days 09/29-10/04 (NRD) [phone] . Spoke with Melanie at [facility] she accepted pt today.
[facility] Acute Care# [id number] [address], 09/29-10/01.
Will offer transportation option to set up ambulance.
Medical nec form completed.
[facility]
report [phone]
fax [phone]
PLAN - To [facility]
[2023-09-30] MEDS: KEPPRA 500 MG PO (09:49)
--- NOTE | 2023-09-30 10:06 | W.DS.TRANS ---
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
-
Discharge Instructions:
Sleep Apnea Risk Low
Discharge Diagnosis/Procedures Febrile leukopenia
Hyponatremia with SIADH
No infection found suspect tumor fever
Chronic thrombocytopenia
Brain cancer/glioblastoma/with recurrent
Diet As tolerated
Activity As tolerated
Driving Restrictions As prior to admission
Instructions:
Stand-Alone Forms:
Changes to Home Medications: No
Discharge Medications:
DC Medications w/original date entered in [employer]
acetaminophen 325 mg tablet 650 mg PO Q6HPRN PRN mild pain/fever 09/07/22
nadolol 20 mg tablet 20 mg PO DAILY Blood pressure 09/07/22
Awilda 1 tab PO DAILY Allergies 09/13/23
apixaban 2.5 mg tablet (Eliquis) 2.5 mg PO BID Blood Clot Prevention/Tx 09/13/23
baclofen 5 mg tablet 5 mg PO Q8HPRN PRN muscle spasms 09/13/23
clobetasol 0.05 % topical ointment 1 applic topical BID PRN apply to head 09/13/23
hydrocortisone 2.5 % topical cream 1 applic topical BID PRN apply to B/L abdomen/B/L knees 09/13/23
levetiracetam 500 mg tablet 500 mg PO Q12H Seizures 09/13/23
lidocaine 5 % topical patch 1 patch topical BIDPRN PRN apply to left hip/left shoulder 09/13/23
tramadol 50 mg tablet 50 mg PO Q6H PRN severe pain 09/13/23
sodium chloride 1,000 mg soluble tablet 1,000 mg PO BID #60 tabs 09/20/23
apixaban 5 mg tablet (Eliquis) 5 mg PO DAILY #30 tabs 09/30/23
Home Medication Changes
Pending Results: No
Total time spent discharging patient (in min): 45
[2023-09-30 11:48] VITALS: BP 123/81
--- NOTE | 2023-09-30 15:30 | W.DCSUMMARY ---
Discharge Summary
Discharge Data
Date of Admission: 09/13/23
Date of Discharge: 09/30/23
Total time spent discharging patient (in min): 56
-
Pending Results: No
Hospital Course
63F immunocompromised host known HX Anaplastic astrocytoma s/p tumor resection , residual Lt sided weakness, currently on oral Tagrisso , HX EBV infection, HX gout pw acute fever with chills morning prior to admission. Denied vomiting but associated
JEAN. Associated with dizziness on standing.
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 Date of admission she is very weak and need 2- 3personn to assist to TF.
She presented with a febrile illness with ongoing leukopenia thrombocytopenia by history original thoughts were and this is immune compromised host were to rule out a viral infection or a 2 distinct infection. Workup none of which was found with
negative blood urine cultures and stool cultures. She was seen by the infectious disease service and was actually placed on empiric antibiotics initially but these were discontinued after weeks course of therapy.
Consultation by phone with patient's oncologist Dr. Carrero was undertaken on 2 separate occasions it was felt that her patient's Tagrisso will be held until which time definitive ruling out of any cultures that could become positive was ruled out.
She subsequently had a continued course of extended febrile leukopenia without neutropenia eventually adding on a presumptive diagnosis of tumor fever and after further consultation with the oncology service Dr. Carrero and stabilization of patient's
already known thrombocytopenia the patient's Tagrisso was resumed. Subsequent to this the patient had become significantly deconditioned and it was recommendation via the physical therapy service that the patient would benefit from a rehab course
which family were very hesitant to pursue given her immunocompromise and she may lose follow-up with her scheduled oncology appointments and further imaging that have been scheduled. She finally defervesced on or about the September 18 and has remained
afebrile since. She remains deconditioned and requiring 3 person assist for transfers and is finally agreed by family members and the patient to pursue a short-term rehab course at [place] making sure that she can keep her scheduled appointments
both of her imaging and her oncology visits with Dr. Carrero.
Present course as outlined above consistent with a presentation diagnosis of febrile leukopenia presumably in relation to tumor fever and no infection found in the setting of brain carcinoma with recurrence presently remaining on Avastin/ Osimertinib
Discharge Plan
-
Patient Disposition: Acute Rehab Facility
Discharge Diagnosis/Procedures: Febrile leukopenia
Hyponatremia with SIADH
No infection found suspect tumor fever
Chronic thrombocytopenia
Brain cancer/glioblastoma/with recurrent
Diet: As tolerated
Activity: As tolerated
Driving Restrictions: As prior to admission
Referrals:
Berlin English MD [Family Provider] - in less than 1 week
Additional Discharge Medication Instructions: Hold Tagrisso to oncology
Prescriptions:
New
sodium chloride 1,000 mg Tablet,Soluble
1,000 mg PO BID Qty: 60 0RF
Eliquis 5 mg Tablet
5 mg PO DAILY Qty: 30 0RF
Continued
acetaminophen 325 MG tablet
650 mg PO Q6HPRN PRN (Reason: mild pain/fever)
nadolol 20 mg Tablet
20 mg PO DAILY
Eliquis 2.5 mg Tablet
2.5 mg PO BID
Awilda
1 tab PO DAILY
tramadol 50 mg Tablet
50 mg PO Q6H PRN (Reason: severe pain)
lidocaine 5 % Adhesive Patch,Medicated
1 patch TOPICAL BIDPRN PRN (Reason: apply to left hip/left shoulder)
hydrocortisone 2.5 % Cream
1 applic TOPICAL BID PRN (Reason: apply to B/L abdomen/B/L knees)
clobetasol 0.05 % Ointment
1 applic TOPICAL BID PRN (Reason: apply to head)
baclofen 5 mg Tablet
5 mg PO Q8HPRN PRN (Reason: muscle spasms)
levetiracetam 500 mg Tablet
500 mg PO Q12H
Discontinued
Tagrisso 80 mg Tablet
80 mg PO DAILY@1999
Patient Comments:
09/13/2023, pt. has own bottle; directions say to take 2 tabs daily, but pt. takes one tablet daily per spouse and pt.
Discharge Orders:
Discharge Patient (As Directed); Ordered 09/30/23
Ordered By: Jabier Pike
Discharge Date and Time
Discharge Date/Time: 09/30/23 13:15
Print Language: MALTESE
== END 2023-09-30 13:15 | DRG 54 ==
LOC: 4 EAST ACU 04:01
PROVIDERS: Hospitalist; Physician Assistant; ADMITTING PHYSICIAN Internal Medicine; ATTENDING PHYSICIAN Internal Medicine; CONSULT PHYSICIAN Internal Medicine; CONSULT PHYSICIAN Internal Medicine Infectious Disease; EMERGENCY PHYSICIAN Emergency Medicine; FAMILY PHYSICIAN Family Medicine; OTHER PHYSICIAN Physical Medicine & Rehabilitation
DX: C71.9 Malignant neoplasm of brain, unspecified (principal); D61.810 Antineoplastic chemotherapy induced pancytopenia; E22.2 Syndrome of inappropriate secretion of antidiuretic hormone; Z68.41 Body mass index [BMI] 40.0-44.9, adult; D84.9 Immunodeficiency, unspecified; I69.854 Hemiplegia and hemiparesis following other cerebrovascular disease affecting left non-dominant side; K52.1 Toxic gastroenteritis and colitis; Z11.52 Encounter for screening for COVID-19; D69.59 Other secondary thrombocytopenia; I10 Essential (primary) hypertension; E66.01 Morbid (severe) obesity due to excess calories; I48.0 Paroxysmal atrial fibrillation; B34.9 Viral infection, unspecified; Z87.891 Personal history of nicotine dependence
CPT/HCPCS: 70450; 71045; 73502; 80048; 80053; 81003; 81015; 83605; 83735; 83930; 83935; 84300; 84443; 85025; 85027; 87040; 87045; 87046; 87324; 87427; 87449; 87502; 87633; 87811; 96374; 97112; 97163; 97167; 97530; 99285

== ENCOUNTER → 2023-10-02 11:08 | Outpatient (REF) | payer OTHER, SELFPAY ==
[2023-10-02 11:53] LABS: Hematocrit 36.8 % (37.0-47.0); Hemoglobin 11.9 g/dL (12.0-16.0); Mean Corp Hgb Conc. 32.3 g/dL (33.0-37.0); Mean Corpuscular Hgb 32.6 pg (27.0-31.0); Mean Corpuscular Volume 100.8 fL (81.0-99.0); Mean Platelet Volume 11.2 fL (7.4-10.4); Platelet Count 45 10^3/uL (130-400); Red Blood Cell Count 3.65 10^6/uL (4.20-5.40); Red Cell Dist. Width 15.5 % (11.5-14.5); White Blood Cell Count 3.1 10^3/uL (4.8-10.8)
[2023-10-02 12:14] LABS: ALT (SGPT) 10 U/L (0-35); AST (SGOT) 19 U/L (14-36); Albumin 3.5 g/dl (3.5-5.0); Alkaline Phosphatase 57 U/L (38-126); Blood Urea Nitrogen 17 mg/dl (7-17); Calcium 8.7 mg/dl (8.4-10.2); Carbon Dioxide 26 mmol/L (22-30); Chloride 103 mmol/L (98-107); Glucose 89 mg/dl (70-99); Potassium 3.5 mmol/L (3.5-5.1); Sodium 133 mmol/L (135-145); Total Bilirubin 0.8 mg/dl (0.2-1.3); Total Protein 6.1 g/dl (6.3-8.2); eGFR > 60.00
== END ==
LOC: OLABWHC 11:08
PROVIDERS: ATTENDING PHYSICIAN Family Medicine
DX: R60.9 Edema, unspecified (principal); I10 Essential (primary) hypertension; D72.820 Lymphocytosis (symptomatic)
CPT/HCPCS: 36415; 80053; 85027

== ENCOUNTER → 2023-10-05 15:24 | Outpatient (REF) | payer OTHER, SELFPAY ==
[2023-10-05 16:18] LABS: Hematocrit 34.8 % (37.0-47.0); Hemoglobin 11.6 g/dL (12.0-16.0); Mean Corp Hgb Conc. 33.3 g/dL (33.0-37.0); Mean Corpuscular Hgb 33.2 pg (27.0-31.0); Mean Corpuscular Volume 99.7 fL (81.0-99.0); Platelet Count 55 10^3/uL (130-400); Red Blood Cell Count 3.49 10^6/uL (4.20-5.40); Red Cell Dist. Width 15.8 % (11.5-14.5); White Blood Cell Count 2.7 10^3/uL (4.8-10.8)
[2023-10-05 16:23] LABS: Blood Urea Nitrogen 13 mg/dl (7-17); Calcium 8.6 mg/dl (8.4-10.2); Carbon Dioxide 26 mmol/L (22-30); Chloride 103 mmol/L (98-107); Glucose 104 mg/dl (70-99); Potassium 3.3 mmol/L (3.5-5.1); Sodium 134 mmol/L (135-145); eGFR > 60.00
== END ==
LOC: OLABWHC 15:24
PROVIDERS: ATTENDING PHYSICIAN Family Medicine
DX: R60.9 Edema, unspecified (principal); I10 Essential (primary) hypertension; D72.820 Lymphocytosis (symptomatic)
CPT/HCPCS: 36415; 80048; 85027

== ENCOUNTER → 2023-10-06 10:00 | Outpatient (REF) | payer OTHER, SELFPAY ==
[2023-10-06 12:07] LABS: Hematocrit 33.4 % (37.0-47.0); Hemoglobin 11.1 g/dL (12.0-16.0); Mean Corp Hgb Conc. 33.2 g/dL (33.0-37.0); Mean Corpuscular Hgb 32.9 pg (27.0-31.0); Mean Corpuscular Volume 99.1 fL (81.0-99.0); Mean Platelet Volume 12.3 fL (7.4-10.4); Platelet Count 56 10^3/uL (130-400); Red Blood Cell Count 3.37 10^6/uL (4.20-5.40); Red Cell Dist. Width 15.7 % (11.5-14.5); White Blood Cell Count 2.5 10^3/uL (4.8-10.8)
== END ==
LOC: OLABWIL 10:00
PROVIDERS: ATTENDING PHYSICIAN Family Medicine
DX: D69.6 Thrombocytopenia, unspecified (principal); Z79.01 Long term (current) use of anticoagulants
CPT/HCPCS: 36415; 85027

== ENCOUNTER → 2023-10-07 09:44 | Outpatient (REF) | payer OTHER, SELFPAY ==
[2023-10-07 10:55] LABS: Hematocrit 33.4 % (37.0-47.0); Mean Corp Hgb Conc. 32.9 g/dL (33.0-37.0); Mean Corpuscular Hgb 32.5 pg (27.0-31.0); Mean Corpuscular Volume 98.8 fL (81.0-99.0); Mean Platelet Volume 12.6 fL (7.4-10.4); Platelet Count 53 10^3/uL (130-400); Red Blood Cell Count 3.38 10^6/uL (4.20-5.40); Red Cell Dist. Width 15.6 % (11.5-14.5); White Blood Cell Count 2.5 10^3/uL (4.8-10.8)
== END ==
LOC: OLABWHC 09:44
PROVIDERS: ATTENDING PHYSICIAN Family Medicine
DX: D72.819 Decreased white blood cell count, unspecified (principal); D69.6 Thrombocytopenia, unspecified
CPT/HCPCS: 36415; 85027